=== PATIENT | female | born 1965 | race Two or more races ===

== ENCOUNTER 2020-10-10 10:01 | Outpatient (REF) | payer OTHER, SELFPAY | END 2020-10-10 10:02 | disposition home or self-care (01) | LOC: HO.LAB 10:01 | PROVIDERS: Visit Provider Internal Medicine | DX: Z20.822 Contact with and (suspected) exposure to COVID-19 (principal) | CPT/HCPCS: 36415; C9803; U0003; U0005 ==

== ENCOUNTER 2021-08-15 09:00 | Outpatient (REF) | payer OTHER, SELFPAY ==
[2021-08-15 09:20] LABS: COVID-19 Test Negative (Negative)
== END 2021-08-15 09:01 | disposition home or self-care (01) ==
LOC: HO.LAB 09:00
PROVIDERS: Visit Provider Internal Medicine
DX: Z20.822 Contact with and (suspected) exposure to COVID-19 (principal)
CPT/HCPCS: 36415; 87635; C9803

== ENCOUNTER 2021-08-29 09:03 | Outpatient (REF) | payer OTHER, SELFPAY ==
[2021-08-29 10:51] LABS: COVID-19 Test Negative (Negative)
== END 2021-08-29 09:04 | disposition home or self-care (01) ==
LOC: HO.LAB 09:03
PROVIDERS: Visit Provider Internal Medicine
DX: Z20.822 Contact with and (suspected) exposure to COVID-19 (principal)
CPT/HCPCS: 36415; 87635; C9803

== ENCOUNTER 2021-09-01 10:40 | Outpatient (REF) | payer OTHER, SELFPAY ==
[2021-09-01 11:30] LABS: COVID-19 Note SEE NOTES; COVID-19 Test Negative (Negative)
== END 2021-09-01 10:41 | disposition home or self-care (01) ==
LOC: HO.LAB 10:40
PROVIDERS: Visit Provider Internal Medicine
DX: Z20.822 Contact with and (suspected) exposure to COVID-19 (principal)
CPT/HCPCS: 36415; 87635; C9803

== ENCOUNTER 2021-09-13 08:11 | Outpatient (REF) | payer OTHER, SELFPAY ==
[2021-09-13 08:51] LABS: Binax Internal Control QC Valid; Binax Now Covid-19 Ag Negative (Negative)
== END 2021-09-13 08:12 | disposition home or self-care (01) ==
LOC: HO.LAB 08:11
PROVIDERS: Visit Provider Internal Medicine
DX: Z20.822 Contact with and (suspected) exposure to COVID-19 (principal)
CPT/HCPCS: C9803

== ENCOUNTER 2022-01-10 20:36 | Emergency (ER) | payer OTHER, SELFPAY ==
--- NOTE | 2022-01-10 | ECG_ITS ---
Test Reason : chest pain Blood Pressure : / mmHG Vent. Rate : 113 BPM Atrial Rate : 113 BPM P-R Int : 154 ms QRS Dur : 078 ms QT Int : 324 ms P-R-T Axes : 047 033 031 degrees QTc Int : 444 ms Sinus tachycardia Otherwise normal ECG When compared with ECG of 17-APR-2013 10:09, Vent. rate has increased BY 47 BPM Referred By: Generic ED Physician Electronically Signed By:DANG SAENZ MD
--- NOTE | ~2022-01-10 | XR_ITS ---
EXAMINATION: XR CHEST CLINICAL INFORMATION: Cough. COMPARISON: 07/27/2014 chest radiographs. TECHNIQUE: Frontal view of the chest was obtained. FINDINGS: There is minimal blunting of the left costophrenic angle with mild superjacent linear markings. The left upper lung field and right lung are clear. The heart and mediastinal structures are unremarkable. XR/XR chest 1V IMPRESSION: Small left pleural effusion with mild superjacent atelectasis versus infiltrate.
[2022-01-10 20:40] VITALS: BP 133/75; PULSE 114; RESP 18; TEMP 37.7; O2SAT 96; BMI 39.4
[2022-01-10 20:56] LABS: MANUAL DIFF FLAG NO
[2022-01-10 20:57] LABS: Basophils Percent Auto 0.2 % (0-2); Eosinophils Absolute Auto 0.1 X10*3/uL (0.0-0.4); Eosinophils Percent Auto 0.4 % (0-4); Hematocrit 37.7 % (37.0-47.0); Hemoglobin 12.3 g/dl (12.0-16.0); Imm Gran Abs Auto 0.03 X10*3/uL (0.00-0.03); Imm Gran Pct Auto 0.2 % (0.0-0.4); Lymphocytes Absolute Auto 1.3 X10*3/uL (1.2-4.9); Lymphocytes Percent Auto 10.2 % (20-40); Mean Corpuscular HGB Conc 32.6 g/dl (31.0-35.0); Mean Corpuscular Hemoglobin 29.4 pg (27.0-33.0); Mean Corpuscular Volume 90.2 fL (80.0-98.0); Mean Platelet Volume 11.3 fL (9.4-12.3); Monocytes Absolute Auto 0.4 X10*3/uL (0.1-1.2); Monocytes Percent Auto 2.9 % (2-11); Neutrophils Absolute Auto 10.9 x10*3/uL (2.0-8.3); Neutrophils Percent Auto 86.1 % (45-73); Platelet Count 183 X10*3/uL (160-400); Red Blood Count 4.18 X10*6/uL (4.20-5.50); Red Cell Distribution Width 14.4 % (11.0-16.0); White Blood Count 12.6 X10*3/uL (4.8-10.8)
[2022-01-10 21:10] LABS: Anion Gap 14 (12-20); Blood Urea Nitrogen 21 mg/dL (9-16); Carbon Dioxide 24 mmol/L (22-29); Chloride 106 mmol/L (96-108); Creatinine Clr Calc Pharmacy 68.4; Estimated Glomerular Filt Rate > 60; Glucose Random 118 mg/dL (60-115); Potassium 4.2 mmol/L (3.3-5.1); Sodium 140 mmol/L (135-145)
[2022-01-10 21:16] LABS: COVID-19 Test Negative (Negative); IDNOW Serial# 16C4AD1C; Influenza A Negative (Negative); Influenza B2 Negative (Negative)
--- NOTE | 2022-01-10 23:31 | ED_ITS ---
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 earlier noticed chills cough low- grade temperature body aches no other family member sick little bit nausea no abdominal pain no vomiting Related Data Previous Rx's Medication Instructions Recorded albuterol sulfate 90 mcg/actuation 2 puff INHALATION Q4-6H PRN #8.5 g 01/11/22 aerosol inhaler (ProAir HFA) codeine 10 mg-guaifenesin 100 mg/5 10 ml PO Q6H PRN #237 ml 01/11/22 mL oral liquid levofloxacin 750 mg tablet 750 mg PO DAILY 7 Days #7 tab 01/11/22 prednisone 20 mg tablet 40 mg PO DAILY #10 tab 01/11/22 Allergies Allergy/AdvReac Type Severity Reaction Status Date / Time acetaminophen Allergy Severe RASH, Verified 01/10/22 20:39 ITCHY EYES, ? ANAPHYLAXIS Review of Systems Review of Systems: Yes all other systems are reviewed and are negative [facility] Social History Social History Advance Directives: No Advance Directives Information Provided: Yes Physical Exam Vital Signs: Vital Signs: Last Vital Signs Temp 100.0 F 01/11/22 00:06 Pulse 101 H 01/11/22 00:06 Resp 18 01/11/22 00:06 BP 127/65 01/11/22 00:06 Pulse Ox 97 01/11/22 00:06 BMI result Body Mass Index 39.4 Appearance: Alert. Oriented X3. No acute distress. ENT: Pharynx normal. Oral Mucosa moist Neck: Normal inspection. Neck supple. CVS: Normal heart rate and rhythm. Pulses normal. Respiratory: No respiratory distress. Equal air entry bilateral, prolonged expiration Abdomen: Soft and nontender. Bowel sounds are present, no mass palpable, no CVA tenderness Skin: Skin warm and dry. Normal skin color. Normal skin turgor. Extremities: No lower extremity edema. No calf tenderness Neuro: Oriented X 3. MDM - URI/Sore Throat MDM Narrative Medical decision making narrative: Patient with acute bronchitis chest x-ray negative labs stable discharge patient home on Levaquin Lab Data Attestation: I reviewed the patient's lab results. Result diagrams: 01/10/22 20:49 01/10/22 20:49 Labs: Lab Results 01/10/22 01/10/22 01/10/22 Range/Units 20:49 20:49 20:49 WBC 12.6 H (4.8-10.8) X10*3/uL RBC 4.18 L (4.20-5.50) X10*6/uL Hgb 12.3 (12.0-16.0) g/dl Hct 37.7 (37.0-47.0) % MCV 90.2 (80.0-98.0) fL MCH 29.4 (27.0-33.0) pg MCHC 32.6 (31.0-35.0) g/dl RDW 14.4 (11.0-16.0) % Plt Count 183 (160-400) X10*3/uL MPV 11.3 (9.4-12.3) fL Immature Gran % (Auto) 0.2 (0.0-0.4) % Neut % (Auto) 86.1 H (45-73) % Lymph % (Auto) 10.2 L (20-40) % [place] % (Auto) 2.9 (2-11) % Eos % (Auto) 0.4 (0-4) % Baso % (Auto) 0.2 (0-2) % Lymph # (Auto) 1.3 (1.2-4.9) X10*3/uL [place] # (Auto) 0.4 (0.1-1.2) X10*3/uL Eos # (Auto) 0.1 (0.0-0.4) X10*3/uL Baso # (Auto) 0.0 (0.0-0.2) X10*3/uL Abs Immat Gran (auto) 0.03 (0.00-0.03) X10*3/uL Absolute Neuts (auto) 10.9 H (2.0-8.3) x10*3/uL Absolute Nucleated RBC 0.000 (0.0-0.012) X10*3/uL Nucleated RBC % (auto) 0.0 (0.0-0.2) /100WBC Sodium 140 (135-145) mmol/L Potassium 4.2 (3.3-5.1) mmol/L Chloride 106 (96-108) mmol/L Carbon Dioxide 24 (22-29) mmol/L Anion Gap 14 (12-20) BUN 21 H (9-16) mg/dL Creatinine 0.87 (0.5-1.4) mg/dL Estim Creat Clear Calc 68.4 Estimated GFR > 60 Random Glucose 118 H (60-115) mg/dL Calcium 9.0 (8.4-10.2) mg/dL COVID-19 (EFREN) (Negative) COVID-19 Clin Com Influenza Type A (ENE) Negative (Negative) Influenza Type B (ENE) Negative (Negative) Influenza A & B Note See Note 01/10/22 Range/Units 20:49 WBC (4.8-10.8) X10*3/uL RBC (4.20-5.50) X10*6/uL Hgb (12.0-16.0) g/dl Hct (37.0-47.0) % MCV (80.0-98.0) fL MCH (27.0-33.0) pg MCHC (31.0-35.0) g/dl RDW (11.0-16.0) % Plt Count (160-400) X10*3/uL MPV (9.4-12.3) fL Immature Gran % (Auto) (0.0-0.4) % Neut % (Auto) (45-73) % Lymph % (Auto) (20-40) % [place] % (Auto) (2-11) % Eos % (Auto) (0-4) % Baso % (Auto) (0-2) % Lymph # (Auto) (1.2-4.9) X10*3/uL [place] # (Auto) (0.1-1.2) X10*3/uL Eos # (Auto) (0.0-0.4) X10*3/uL Baso # (Auto) (0.0-0.2) X10*3/uL Abs Immat Gran (auto) (0.00-0.03) X10*3/uL Absolute Neuts (auto) (2.0-8.3) x10*3/uL Absolute Nucleated RBC (0.0-0.012) X10*3/uL Nucleated RBC % (auto) (0.0-0.2) /100WBC Sodium (135-145) mmol/L Potassium (3.3-5.1) mmol/L Chloride (96-108) mmol/L Carbon Dioxide (22-29) mmol/L Anion Gap (12-20) BUN (9-16) mg/dL Creatinine (0.5-1.4) mg/dL Estim Creat Clear Calc Estimated GFR Random Glucose (60-115) mg/dL Calcium (8.4-10.2) mg/dL COVID-19 (EFREN) Negative (Negative) COVID-19 Clin Com See Note Influenza Type A (ENE) (Negative) Influenza Type B (ENE) (Negative) Influenza A & B Note Discharge Plan Discharge Clinical Impression: Bronchitis Patient Disposition: Home, Self-Care Instructions: Acute Bronchitis (ED) Additional Instructions: Take antibiotic as prescribed Tylenol/Motrin for fever Cough syrup as advised Follow with PCP if not better for recheck COVID/flu Use albuterol for wheezing Prescriptions: New levofloxacin 750 mg tablet 750 mg PO DAILY 7 Days Qty: 7 0RF codeine-guaifenesin 10-100 mg/5 mL liquid 10 ml PO Q6H PRN (Reason: cough) Qty: 237 0RF albuterol sulfate [ProAir HFA] 90 mcg/actuation HFA aerosol inhaler 2 puff inhalation Q4-6H PRN (Reason: shortness of breath or wheezing) Qty: 8.5 0RF prednisone 20 mg tablet 40 mg PO DAILY Qty: 10 0RF Stand Alone Forms: Work/School Release Interventions: ED Discharge Assessment Last Done: 01/11/22 00:37 Discharge Date/Time: 01/11/22 00:39
[2022-01-11 00:06] VITALS: BP 127/65; PULSE 101; RESP 18; TEMP 37.8; O2SAT 97
[2022-01-11] MEDS: predniSONE 20 MG TABLET 40 MG PO (00:10)
[2022-01-11] MEDS: guaiFEN/Codeine SF 200/20/10ML 10 ML LIQUID PO (00:10)
[2022-01-11] MEDS: levoFLOXacin 750 MG TABLET PO (00:10)
[2022-01-11] MEDS: Albuterol Sulfate 90 MCG 8 GM INHALER 2 PUFF INHALE (00:10)
== END 2022-01-11 00:39 | disposition home or self-care (01) ==
PROVIDERS: Emergency Provider Internal Medicine
DX: J40 Bronchitis, not specified as acute or chronic (principal); R07.89 Other chest pain; R05.9 Cough, unspecified; M79.10 Myalgia, unspecified site; R50.9 Fever, unspecified; Z20.822 Contact with and (suspected) exposure to COVID-19; Z79.899 Other long term (current) drug therapy
CPT/HCPCS: 71045; 80048; 85025; 87502; 87635; 93005; 99283; 99284

== ENCOUNTER 2022-11-13 13:00 | Emergency (ER) | payer OTHER, SELFPAY ==
--- NOTE | ~2022-11-13 | US_ITS ---
EXAMINATION: US VENOUS ULTRASOUND WITH DOPPLER LOWER EXTREMITY, BILATERAL CLINICAL INFORMATION: Lower extremity pain, history of clots. COMPARISON: Right lower extremity venous DVT study dated 01/15/2017. TECHNIQUE: Ultrasound of the deep veins is performed from the hip to the calf with compression sonography and color and pulse Doppler assessment. Spectral analysis with color-flow imaging is performed. FINDINGS: RIGHT: There is normal venous compression and respiratory variation and augmented flow. The visualized common femoral vein, superficial femoral vein, profunda femoral vein, popliteal vein, and the trifurcation region shows no evidence of deep venous thrombosis. There is no significant popliteal fossa cyst. LEFT: There is normal venous compression and respiratory variation and augmented flow. The visualized common femoral vein, superficial femoral vein, profunda femoral vein, popliteal vein, and the trifurcation region shows no evidence of deep venous thrombosis. There is no significant popliteal fossa cyst. If the patient's symptoms persist, followup ultrasound in 5 days 7 days might be of value to exclude proximal propagation from a non-visualized calf vein. US/US venous duplex LE BI IMPRESSION: No evidence for deep venous thrombosis in the visualized veins of the bilateral lower extremities.
--- NOTE | ~2022-11-13 | XR_ITS ---
EXAMINATION: XR HIP, RIGHT CLINICAL INFORMATION: Right hip pain. COMPARISON: None TECHNIQUE: Two views of the right hip. FINDINGS: Minimal right hip degenerative joint changes are seen. There is no acute fracture or dislocation. The right hemipelvis is intact. The soft tissues are unremarkable. XR/XR hip RT min 2V IMPRESSION: Minimal right hip osteoarthritis. No acute fracture.
--- NOTE | ~2022-11-13 | US_ITS ---
EXAMINATION: US VENOUS WITH DOPPLER UPPER EXTREMITY, RIGHT CLINICAL INFORMATION: Right hand swelling, history of clots. COMPARISON: None TECHNIQUE: Ultrasound of the upper extremity is performed using compression sonography and color and pulse Doppler flow with assessment of augmentation of flow. There is also imaging and Doppler assessment of the jugular and subclavian veins. Spectral analysis with color-flow imaging is performed. FINDINGS: Respiratory variation, normal compression, and augmented flow are noted throughout the upper extremity including the axillary, brachial, cubital, and radial and ulnar veins. There is normal flow in the internal jugular and subclavian veins. There is no visible deep or superficial thrombophlebitis. If the patient's symptoms progress, a followup ultrasound in 5 -7 days might be of value to exclude proximal propagation from a nonvisualized distal arm vein. US/US venous duplex UE RT IMPRESSION: No evidence for deep venous thrombosis in the visualized veins of the right upper extremity.
[2022-11-13 13:43] VITALS: BP 137/81; PULSE 70; RESP 16; TEMP 36.7; O2SAT 97; BMI 38.1
[2022-11-13 14:59] LABS: MANUAL DIFF FLAG NO
[2022-11-13 15:00] LABS: Basophils Absolute Auto 0.1 X10*3/uL (0.0-0.2); Basophils Percent Auto 0.9 % (0-2); Eosinophils Absolute Auto 0.1 X10*3/uL (0.0-0.4); Eosinophils Percent Auto 2.2 % (0-4); Hematocrit 37.5 % (37.0-47.0); Imm Gran Abs Auto 0.01 X10*3/uL (0.00-0.03); Imm Gran Pct Auto 0.2 % (0.0-0.4); Lymphocytes Absolute Auto 1.9 X10*3/uL (1.2-4.9); Lymphocytes Percent Auto 34.6 % (20-40); Mean Corpuscular Hemoglobin 29.3 pg (27.0-33.0); Mean Corpuscular Volume 91.7 fL (80.0-98.0); Mean Platelet Volume 11.8 fL (9.4-12.3); Monocytes Absolute Auto 0.5 X10*3/uL (0.1-1.2); Monocytes Percent Auto 9.7 % (2-11); Neutrophils Absolute Auto 2.9 x10*3/uL (2.0-8.3); Neutrophils Percent Auto 52.4 % (45-73); Platelet Count 194 X10*3/uL (160-400); Red Blood Count 4.09 X10*6/uL (4.20-5.50); Red Cell Distribution Width 13.9 % (11.0-16.0); White Blood Count 5.6 X10*3/uL (4.8-10.8)
[2022-11-13 15:06] LABS: Prothrombin Time 11.3 SEC (10.0-13.1)
[2022-11-13 15:18] LABS: Alanine Aminotransferase 15 U/L (0-31); Albumin Level 3.8 g/dL (3.5-5.0); Alkaline Phosphatase 98 U/L (39-117); Anion Gap 13 (12-20); Aspartate Amino Transferase 14 U/L (5-31); Bilirubin Total 0.5 mg/dL (0.0-1.0); Blood Urea Nitrogen 20 mg/dL (9-16); Calcium 8.7 mg/dL (8.4-10.2); Carbon Dioxide 27 mmol/L (22-29); Chloride 108 mmol/L (96-108); Creatinine Clr Calc Pharmacy 78.8; Estimated Glomerular Filt Rate > 60; Glucose Random 91 mg/dL (60-115); Potassium 4.5 mmol/L (3.3-5.1); Sodium 143 mmol/L (135-145); Total Protein 6.7 g/dL (6.5-8.0)
[2022-11-13 15:41] LABS: Influenza A PCR NEGATIVE (Negative); Influenza B PCR NEGATIVE (Negative); Resp Syncy Virus RNA Qual PCR NEGATIVE (Negative); SARS COV2 PCR INHOUSE NEGATIVE (Negative)
--- NOTE | 2022-11-13 16:36 | ED.GENADULT ---
HPI - General Adult General Chief complaint: General Medical Stated complaint: R hand swollen, R hip pain Time Seen by Provider: 11/13/22 16:34 Source: patient Mode of arrival: ambulatory Limitations: no limitations History of Present Illness HPI narrative: This is a 57-year-old female history of PE not anticoagulated, presenting to the emergency department for evaluation of bilateral hand swelling and cramping every morning for the past few months in pain to the right flank area radiating into her right buttocks. Patient tells me that she is noticed that her hands become crampy, tingly and swollen at times in the morning with decreased sensation. She tells me she is not sure what this could be and she has never had this evaluated before. She is also reporting severe right lower flank pain that radiates into her right buttocks, patient tells me that she has been walking a lot and she is not sure if this could be contributing to pain. She also reports a crampy sensation in bilateral thighs which has been going on for a few days worsening however he tells me she thinks this was brought on by exercising however she is worried because she has a history of PE. She tells me she had a PE years ago after surgical procedure. Denies fevers, chills, numbness, chest pain, shortness of breath, headache, vision changes, dizziness, weakness, urinary/bowel incontinence/retention, saddle paresthesias, changes in gait, urinary symptoms. Related Data Previous Rx's Medication Instructions Recorded albuterol sulfate 90 mcg/actuation 2 puff inhalation Q4-6H PRN 01/11/22 aerosol inhaler (ProAir HFA) shortness of breath or wheezing #8.5 grams codeine 10 mg-guaifenesin 100 mg/5 10 ml PO Q6H PRN cough #237 mL 01/11/22 mL oral liquid levofloxacin 750 mg tablet 750 mg PO DAILY 7 days #7 tabs 01/11/22 prednisone 20 mg tablet 40 mg PO DAILY #10 tabs 01/11/22 ketorolac 10 mg tablet 10 mg PO TID PRN pain 5 days #15 11/13/22 tabs lidocaine 5 % topical patch 1 patch topical DAILY PRN pain #15 11/13/22 ea Allergies Allergy/AdvReac Type Severity Reaction Status Date / Time acetaminophen Allergy Severe RASH, Verified 01/10/22 20:39 ITCHY EYES, ? ANAPHYLAXIS Review of Systems Review of Systems: Constitutional : No Weight loss, No Fever, No Chills, No Fatigue, No Malaise ENT/Mouth : No sore throat, No Rhinorrhea Eyes: No Eye Pain, No Swelling, No Redness Cardiovascular : No Chest Pain, No SOB, No Dyspnea on Exertion, No Orthopnea, No Edema, No Palpitations Respiratory : No Cough, No Sputum, No Wheezing Gastrointestinal : No Nausea, No Vomiting, No Diarrhea, No Constipation, No abdominal Pain, No Hematochezia, No Melena Genitourinary : No Dysuria, No Urinary Frequency, No Hematuria, Musculoskeletal : No joint pain, No Myalgias, No Joint Swelling, + right-sided flank pain Skin : No Skin Lesions, No rash Neuro : No Weakness, No Numbness, No Dizziness, No Headache Psych : No Anxiety/Panic, No Depression All other systems reviewed and are negative Yes all other systems are reviewed and are negative [facility] Past Medical History Attestation statement: The following information was validated with the patient. Source: old records reviewed and nursing notes reviewed Social History Social History Advance Directives: No Advance Directives Information Provided: Yes Physical Exam ED Vital Signs: Vital Signs - 24 hr 11/13/22 13:43 Temperature 98.0 F Pulse Rate 70 Respiratory Rate 16 Blood Pressure 137/81 Pulse Oximetry 97 Oxygen Delivery Method Room Air BMI result Body Mass Index 38.1 Vital signs stable Appearance: Alert.? Oriented X3.? No acute distress.? Head: Normocephalic, atraumatic, no step-offs or deformities Eyes: Pupils equal, round and reactive to light.? CVS: Normal heart rate and rhythm.? Pulses normal.? Respiratory: No respiratory distress.? Breath sounds normal.? Abdomen: Soft and nontender.? Skin: Skin warm and dry.? Normal skin color.? Normal skin turgor.? Extremities: No lower extremity edema or edema to bilateral upper extremities.? No calf ttp, negative Jadiel bilaterally. 5/5 strength to bilateral upper and lower extremities 2+ radial pulses equal bilateral. Normal capillary refill. Normal sensation to bilateral upper and lower extremities. No overlying skin changes. Back: No midline tenderness, no C-spine tenderness, full range of motion, no CVA tenderness bilaterally + discomfort with palpation of right-sided flank/right lumbar paraspinous muscles throughout. No midline tendernmess Neuro: Oriented X 3.? No motor deficit.? No sensory deficit. CN 2-12 intact . Ambulatory w/ steady gait, no saddle paresthesias Course Reevaluation(s) Reevaluation #1: CBC appears to be around normal limits. Chemistry with no acute findings requiring intervention. Influenza, COVID, RSV negative. No evidence of DVT in the veins of the right upper extremity. No need for DVT study in the left upper extremity. There is no swelling to either extremity on my exam. Palpable pulses no need for arterial study. I do not suspect arterial occlusion. Right hip with osteoarthritis. No acute fracture. DVT of bilateral lower extremities pending. I suspect patient likely has lumbago right paraspinous lumbar spasm. Time: 17:32 Reevaluation #2: Patient feeling better. This time patient will be discharged home. Will discharge with Toradol and Lidoderm patches. Will have her follow up with PCP for chronic conditions. Educated patient on diagnosis and treatment plan, answered all question, patient verbalizes understanding. At this time patient will be discharged home, advised to return with new or worsening symptoms. Educated on worrisome signs and symptoms and when to return. At this time I feel comfortable discharge home. Time: 17:52 Medical Decision Making Medical Decision Making [facility] Narrative: 162 57-year-old female presents for evaluation of bilateral hand cramping, tingling and swelling in the mornings for few days, thigh cramping, right flank pain. Physical exam discomfort with palpation of right-sided flank/right lumbar paraspinous muscles throughout. No midline tender. RRR. Breath sounds clean. Abdomen soft nontender non distended. No saddle paresthesias. Ambulating w/ steady gait. No lower extremity edema or edema to bilateral upper extremities.? No calf ttp, negative Jadiel bilaterally. 5/5 strength to bilateral upper and lower extremities 2+ radial pulses equal bilateral. Normal capillary refill. Normal sensation to bilateral upper and lower extremities. No overlying skin changes. Hand tingling likely neuropathy. No signs of venous or arterial occlusion to upper lower extremities. Back pain likely lumbar spasm or sciatica. I do not suspect epidural abscess, cauda equina. Unlikely pyelonephritis, kidney stone. No signs of cellulitis. Plan at this time labs, imaging, DVT study. Differential Diagnosis Differential Diagnoses: The differential diagnosis associated with the presentation includes Hand tingling likely neuropathy. No signs of venous or arterial occlusion to upper lower extremities. Back pain likely lumbar spasm or sciatica. I do not suspect epidural abscess, cauda equina. Unlikely pyelonephritis, kidney stone. No signs of cellulitis. Admission/Observation Consideration of admission/observation: Escalation of care including admission/observation considered Lab Data MDM Lab Attestation statement: I reviewed the patient's lab results. 11/13/22 14:54 11/13/22 14:54 Labs: Lab Results 11/13/22 11/13/22 11/13/22 Range/Units 14:54 14:54 14:54 WBC 5.6 (4.8-10.8) X10*3/uL RBC 4.09 L (4.20-5.50) X10*6/uL Hgb 12.0 (12.0-16.0) g/dl Hct 37.5 (37.0-47.0) % MCV 91.7 (80.0-98.0) fL MCH 29.3 (27.0-33.0) pg MCHC 32.0 (31.0-35.0) g/dl RDW 13.9 (11.0-16.0) % Plt Count 194 (160-400) X10*3/uL MPV 11.8 (9.4-12.3) fL Immature Gran % (Auto) 0.2 (0.0-0.4) % Neut % (Auto) 52.4 (45-73) % Lymph % (Auto) 34.6 (20-40) % [place] % (Auto) 9.7 (2-11) % Eos % (Auto) 2.2 (0-4) % Baso % (Auto) 0.9 (0-2) % Lymph # (Auto) 1.9 (1.2-4.9) X10*3/uL [place] # (Auto) 0.5 (0.1-1.2) X10*3/uL Eos # (Auto) 0.1 (0.0-0.4) X10*3/uL Baso # (Auto) 0.1 (0.0-0.2) X10*3/uL Abs Immat Gran (auto) 0.01 (0.00-0.03) X10*3/uL Absolute Neuts (auto) 2.9 (2.0-8.3) x10*3/uL Absolute Nucleated RBC 0.000 (0.0-0.012) X10*3/uL Nucleated RBC % (auto) 0.0 (0.0-0.2) /100WBC PT (10.0-13.1) SEC INR (0.9-1.1) Sodium 143 (135-145) mmol/L Potassium 4.5 (3.3-5.1) mmol/L Chloride 108 (96-108) mmol/L Carbon Dioxide 27 (22-29) mmol/L Anion Gap 13 (12-20) BUN 20 H (9-16) mg/dL Creatinine 0.73 (0.5-1.4) mg/dL Estim Creat Clear Calc 78.8 Estimated GFR > 60 Random Glucose 91 (60-115) mg/dL Calcium 8.7 (8.4-10.2) mg/dL Total Bilirubin 0.5 (0.0-1.0) mg/dL AST 14 (5-31) U/L ALT 15 (0-31) U/L Alkaline Phosphatase 98 (39-117) U/L Total Protein 6.7 (6.5-8.0) g/dL Albumin 3.8 (3.5-5.0) g/dL Influenza Type A (PCR) NEGATIVE (Negative) Influenza Type B (PCR) NEGATIVE (Negative) RSV RNA Qual (PCR) NEGATIVE (Negative) SARS-CoV-2 RNA (RT-PCR) NEGATIVE (Negative) 11/13/22 Range/Units 14:54 WBC (4.8-10.8) X10*3/uL RBC (4.20-5.50) X10*6/uL Hgb (12.0-16.0) g/dl Hct (37.0-47.0) % MCV (80.0-98.0) fL MCH (27.0-33.0) pg MCHC (31.0-35.0) g/dl RDW (11.0-16.0) % Plt Count (160-400) X10*3/uL MPV (9.4-12.3) fL Immature Gran % (Auto) (0.0-0.4) % Neut % (Auto) (45-73) % Lymph % (Auto) (20-40) % [place] % (Auto) (2-11) % Eos % (Auto) (0-4) % Baso % (Auto) (0-2) % Lymph # (Auto) (1.2-4.9) X10*3/uL [place] # (Auto) (0.1-1.2) X10*3/uL Eos # (Auto) (0.0-0.4) X10*3/uL Baso # (Auto) (0.0-0.2) X10*3/uL Abs Immat Gran (auto) (0.00-0.03) X10*3/uL Absolute Neuts (auto) (2.0-8.3) x10*3/uL Absolute Nucleated RBC (0.0-0.012) X10*3/uL Nucleated RBC % (auto) (0.0-0.2) /100WBC PT 11.3 (10.0-13.1) SEC INR 1.0 (0.9-1.1) Sodium (135-145) mmol/L Potassium (3.3-5.1) mmol/L Chloride (96-108) mmol/L Carbon Dioxide (22-29) mmol/L Anion Gap (12-20) BUN (9-16) mg/dL Creatinine (0.5-1.4) mg/dL Estim Creat Clear Calc Estimated GFR Random Glucose (60-115) mg/dL Calcium (8.4-10.2) mg/dL Total Bilirubin (0.0-1.0) mg/dL AST (5-31) U/L ALT (0-31) U/L Alkaline Phosphatase (39-117) U/L Total Protein (6.5-8.0) g/dL Albumin (3.5-5.0) g/dL Influenza Type A (PCR) (Negative) Influenza Type B (PCR) (Negative) RSV RNA Qual (PCR) (Negative) SARS-CoV-2 RNA (RT-PCR) (Negative) Independent Interpretation I performed an independent interpretation of an: Ultrasound Radiology Impression Discussion of test interpretation with radiology: I have reviewed the radiologist's reading. Core Measures AMI core measures followed: Yes Measure exclusions: not indicated Discharge Plan Discharge Clinical Impression: Lumbar paraspinal muscle spasm, Bilateral thigh pain, Tingling of both upper extremities, Osteoarthritis of right hip Patient Disposition: Home, Self-Care Instructions: Osteoarthritis (ED), Leg Cramps (ED), Paresthesia (ED), Back Pain (ED) Additional Instructions: Take your medications as prescribed. If you were prescribed antibiotics today, it is important that you take your medication to their entirety, do not skip any doses, do not finish them early. Follow-up with your primary care provider this week. Return to the emergency department with new or worsening symptoms. Such as fevers, chills, chest pain, shortness of breath, nausea, vomiting, dizziness, headache, vision changes, lethargy In case of emergency call 911 Toradol has been sent to your pharmacy, you tolerated this well in the department. Please take this as prescribed do not take this with ibuprofen, or other NSAIDs, do not mix this with alcohol. Side effects of this medication including increased risk for bleeding and possible kidney injury. US/US venous duplex LE BI IMPRESSION: No evidence for deep venous thrombosis in the visualized veins of the bilateral lower extremities. ?US/US venous duplex UE RT IMPRESSION: No evidence for deep venous thrombosis in the visualized veins of the right upper extremity. XR/XR hip RT min 2V IMPRESSION: Minimal right hip osteoarthritis. No acute fracture. ? Prescriptions: New ketorolac 10 mg tablet 10 mg PO TID PRN (Reason: pain) 5 Days Qty: 15 0RF lidocaine 5 % adhesive patch,medicated 1 patch topical DAILY PRN (Reason: pain) Qty: 15 0RF Rx Instructions: leave on most painful area for up to 12 hrs No Action levofloxacin 750 mg tablet 750 mg PO DAILY 7 Days Qty: 7 0RF codeine-guaifenesin 10-100 mg/5 mL liquid 10 ml PO Q6H PRN (Reason: cough) Qty: 237 0RF albuterol sulfate [ProAir HFA] 90 mcg/actuation HFA aerosol inhaler 2 puff inhalation Q4-6H PRN (Reason: shortness of breath or wheezing) Qty: 8.5 0RF prednisone 20 mg tablet 40 mg PO DAILY Qty: 10 0RF Referrals: Anjel Crandall III, MD [Primary Care Provider] - 2 days Stand Alone Forms: Work/School Release
--- OUTSIDE RECORDS SUMMARY | 2022-11-13 16:57 | XMS_ITS | Continuity of Care Document ---
:1965 Author Organization [facility] Address [address] [place] [id number]- Care Team Providers Name Role Phone Aniya Li DO Primary Care Physician Encounter [facility] Date(s): 03/14/20 - 03/15/[address] [address]- [facility] Discharge Disposition: A-Transfer VNA/Home Health Attending Physician: Adebayo Mays MD Admitting Physician: Adebayo Mays MD Referring Physician: Not on Staff, Referring MD Allergies, Adverse Reactions, Alerts Substance Reaction Severity Status Tylenol Active Medications Advil 200 mg, By Mouth, Maintenance, 04/29/13 7:38:28 Start Date: 04/29/13 Status: OrderedCoumadin Tablet = 4 mg, By Mouth, Daily, 0 Refills, Maintenance, 03/14/20 0:38:00 EDT, Tablet Start Date: 03/14/20 Status: OrderedoxyCODONE 5 mg oral tablet 2.5 mg, 0.5, tablet, By Mouth, Every 4 hours, PRN, # 5 tablet, Refills 0, Tot. Refills 0, Maintenance, Pain , Severe, 03/15/20 11:17:00 EDT, Print Requisition, Partial fill upon patient request Start Date: 03/15/20 Status: OrderedPantoprazole Daily, 0 Refills, Maintenance, 03/14/20 0:38:00 EDT Start Date: 03/14/20 Status: OrderedSucralfate = 1 Gm, By Mouth, 3 times a day before meals and bedtime, 0 Refills, Maintenance, 03/14/20 0:38:00 EDT Start Date: 03/14/20 Status: Ordered Problem List Condition Effective Dates Status Health Status Informant Peripheral venous Active insufficiency(Confirmed) VV (varicose veins)(Confirmed) Active Results Orders for Microbiology Reports Name Date Blood Culture #2 03/14/20 Wound Superficial Culture W/ Gram Smear 03/14/20 Blood Culture (BLOOD CULTURE) 03/14/20 Microbiology Reports TEST:Blood Culture, Second Order STATUS:Unauthenticated BODY SITE: SOURCE:Blood COLLECTED DATE/TIME:03/14/20 2:32 AMBlood Culture, Second Order SPECIMEN DESCRIPTION : BLOOD NO SITE SPECIAL REQUESTS : NONE CULTURE : NO GROWTH AFTER 24 HOURS REPORT STATUS : PRELIMINARY REPORT TEST:Superficial Wound Culture STATUS:Unauthenticated BODY SITE: SOURCE:SWAB1 COLLECTED DATE/TIME:03/14/20 2:30 AMSuperficial Wound Culture SPECIMEN DESCRIPTION : SWAB ABDOMEN SPECIAL REQUESTS : NONE GRAM STAIN : 4+ POLYMORPHONUCLEAR LEUKOCYTES 4+ GRAM POSITIVE COCCI 3+ GRAM NEGATIVE RODS 2+ GRAM POSITIVE RODS CULTURE : 3+ GROUP B BETA HEMOLYTIC STREPTOCOCCI ISOLATED. SUSCEPTIBILITY TESTING NOT ROUTINELY PERFORMED ON THIS ISOLATE. REPORT STATUS : PRELIMINARY REPORT TEST:Blood Culture STATUS:Unauthenticated BODY SITE: SOURCE:Blood COLLECTED DATE/TIME:03/14/20 12:50 AMBlood Culture SPECIMEN DESCRIPTION : BLOOD NO SITE SPECIAL REQUESTS : NONE CULTURE : NO GROWTH AFTER 24 HOURS REPORT STATUS : PRELIMINARY REPORT Vital Signs Most recent to oldest 1 2 3 [Reference Range]: Height 150 cm 150 cm 150 cm (03/14/20 3:54 PM) (03/14/20 12:59 PM) (03/14/20 8: 52 AM) Weight 95.6 kg 90.9 kg 90.9 kg (03/14/20 8:52 AM) (03/14/20 6:46 AM) (03/14/20 4:0 2 AM) Oxygen Saturation [94-100 %] 100 % 98 % 96 % (03/15/20 11:00 AM) (03/15/20 7:00 AM) (03/15/20 4: 00 AM) Pulse Rate [55-90 bpm] 79 bpm 80 bpm 68 bpm (03/15/20 11:00 AM) (03/15/20 7:00 AM) (03/15/20 4: 00 AM) Body Mass Index [18.5-24.99] 42.49 *>HHI* (03/14/20 8:52 AM) Blood Pressure [90-138/55-84 93/61 mm Hg 102/55 mm Hg 108 /58 mm Hg mm Hg] (03/15/20 11:00 AM) (03/15/20 7:00 AM) (03/15/20 4: 00 AM) Respiratory Rate [16-30 18 br/min 18 br/min 18 br/mi n br/min] (03/15/20 12:50 PM) (03/15/20 11:55 AM) (03/15/20 1 1:00 AM) Temperature [96.8-100.4 97.9 DegF 98.8 DegF 97.9 Deg F DegF] (03/15/20 11:00 AM) (03/15/20 7:00 AM) (03/15/20 4: 00 AM) Mode of Delivery (Oxygen) Room air Room air Room a ir (03/15/20 11:00 AM) (03/15/20 7:00 AM) (03/15/20 4: 00 AM) Blood pressure sites Arm, right Arm, right Arm, right (03/15/20 11:00 AM) (03/15/20 7:00 AM) (03/15/20 4: 00 AM) Temperature Route Oral Oral Oral (03/15/20 11:00 AM) (03/15/20 7:00 AM) (03/15/20 4: 00 AM) Dry Weight 95.6 kg 90.9 kg 90.9 kg (03/14/20 8:52 AM) (03/14/20 6:46 AM) (03/14/20 4:0 2 AM) Weight Obtained Via Standing scale (03/14/20 12:34 AM) Dry Weight Obtained Via Standing scale (03/14/20 12:34 AM)
--- OUTSIDE RECORDS SUMMARY | 2022-11-13 16:57 | XMS_ITS | Continuity of Care Document ---
:1965 Author Organization [facility] Address [address] [place] [address]- Care Team Providers Name Role Phone Aniya Li DO Primary Care Physician Encounter 03/17/20 - 04/28/20 [facility] [address] [place] [address]- [facility] Discharge Disposition: GOALS MET Allergies, Adverse Reactions, Alerts Substance Reaction Severity [...]
--- OUTSIDE RECORDS SUMMARY | 2022-11-13 16:57 | XMS_ITS | Continuity of Care Document ---
:1965 Author Organization [facility] Address [address] [place] [address]- Care Team Providers Name Role Phone Aniya Li DO Primary Care Physician [id number] Date(s): 03/14/20 - 04/13/[address] [address]- [facility] Attending Physician: Not on Staff, Attending MD Admitting Physician: Not on Staff, Admitting MD Referring Physician: Not on Staff, Referring [...]
[2022-11-13] MEDS: Ketorolac Tromethamine 15 MG/ML VIAL 30 MG IM (18:18)
[2022-11-13] MEDS: Lidocaine 4 % Patch ADH..PATCH 1 PATCH TRANSDERMA (18:19)
== END 2022-11-13 18:33 | disposition home or self-care (01) ==
PROVIDERS: Physician Assistant; Emergency Provider Internal Medicine; PCP Internal Medicine
DX: M62.830 Muscle spasm of back (principal); M16.11 Unilateral primary osteoarthritis, right hip; M79.652 Pain in left thigh; M79.651 Pain in right thigh; R20.2 Paresthesia of skin; Z20.822 Contact with and (suspected) exposure to COVID-19; Z20.828 Contact with and (suspected) exposure to other viral communicable diseases; Z86.711 Personal history of pulmonary embolism; Z79.899 Other long term (current) drug therapy
CPT/HCPCS: 0241U; 36415; 73502; 80053; 82550; 85025; 85610; 93970; 93971; 96372; 99283; 99284; J1885

== ENCOUNTER 2024-03-10 08:44 | Emergency (ER) | payer OTHER, SELFPAY ==
--- NOTE | ~2024-03-10 | CT_ITS ---
EXAMINATION: CT ABDOMEN AND PELVIS WITHOUT CONTRAST CLINICAL INFORMATION: Left lower quadrant abdominal pain COMPARISON: CT from 08/10/2014 TECHNIQUE: Multidetector volumetric imaging was performed from the superior aspect of the liver through the pubic symphysis. Sagittal and coronal reformatted images were obtained on the technologist's workstation. This CT examination was performed using dose optimization techniques as appropriate, variously including the following: *Automated exposure control *Adjustment of mA and/or kV according to patient size (this includes techniques or standardized protocols for targeted exams where dose is matched to indication/reason for exam; i.e. extremities or head) *Use of iterative reconstruction technique DLP: 509 mGy-cm FINDINGS: LUNG BASES: The visualized lung bases are unremarkable. LIVER, GALLBLADDER, AND BILIARY TREE: The liver is normal in size, shape, and attenuation. No focal hepatic lesion or biliary ductal dilatation is present. The gallbladder is unremarkable with no evidence of radiopaque gallstones, gallbladder wall thickening, or obvious pericholecystic inflammatory changes. PANCREAS: Unremarkable. SPLEEN: Unremarkable. ADRENAL GLANDS: Unremarkable. KIDNEYS AND URETERS: The kidneys are normal in size, shape, and attenuation. No hydronephrosis, hydroureter, or calculi seen. No perinephric stranding. BLADDER: Unremarkable. GASTROINTESTINAL TRACT: The small bowel are unremarkable. The appendix is unremarkable. Multiple diverticula seen within the sigmoid colon with associated bowel wall thickening and pericolonic inflammatory stranding consistent with acute diverticulitis. No evidence of abscess formation or free air ABDOMINAL WALL: Postsurgical changes along the anterior abdominal wall consistent with a prior surgery and ventral hernia repair LYMPH NODES: Normal. VASCULAR: Unremarkable. PELVIC VISCERA: Status post hysterectomy. No adnexal mass lesions OSSEOUS STRUCTURES: Unremarkable. CT/CT abdomen pelvis wo IV con IMPRESSION: Acute diverticulitis of the sigmoid colon. No evidence of abscess formation or free air.
[2024-03-10 09:13] VITALS: BP 122/71; PULSE 74; RESP 16; TEMP 36.7; O2SAT 98; BMI 40.1
[2024-03-10 09:27] LABS: MANUAL DIFF FLAG NO
[2024-03-10 09:28] LABS: Basophils Percent Auto 0.6 % (0-2); Eosinophils Absolute Auto 0.2 X10*3/uL (0.0-0.4); Eosinophils Percent Auto 2.4 % (0-4); Hemoglobin 12.2 g/dl (12.0-16.0); Imm Gran Abs Auto 0.02 X10*3/uL (0.00-0.03); Imm Gran Pct Auto 0.3 % (0.0-0.4); Lymphocytes Percent Auto 13.6 % (20-40); Mean Corpuscular Volume 91.1 fL (80.0-98.0); Mean Platelet Volume 11.5 fL (9.4-12.3); Monocytes Absolute Auto 0.6 X10*3/uL (0.1-1.2); Monocytes Percent Auto 8.2 % (2-11); Neutrophils Absolute Auto 5.4 x10*3/uL (2.0-8.3); Neutrophils Percent Auto 74.9 % (45-73); Platelet Count 176 X10*3/uL (160-400); Red Blood Count 4.06 X10*6/uL (4.20-5.50); Red Cell Distribution Width 14.5 % (11.0-16.0); White Blood Count 7.2 X10*3/uL (4.8-10.8)
[2024-03-10 10:02] LABS: Alanine Aminotransferase 16 U/L (0-31); Alkaline Phosphatase 91 U/L (39-117); Anion Gap 13 (12-20); Aspartate Amino Transferase 21 U/L (5-31); Bilirubin Direct 0.2 mg/dL (0.0-0.5); Bilirubin Total 0.7 mg/dL (0.0-1.0); Blood Urea Nitrogen 16 mg/dL (9-16); Calcium 9.3 mg/dL (8.4-10.2); Carbon Dioxide 24 mmol/L (22-29); Chloride 112 mmol/L (96-108); Creatinine Clr Calc Pharmacy 68.7; Estimated Glomerular Filt Rate > 60; Glucose Random 99 mg/dL (60-115); Lipase 17 U/L (8-78); Potassium 4.3 mmol/L (3.3-5.1); Sodium 145 mmol/L (135-145); Total Protein 7.3 g/dL (6.5-8.0)
[2024-03-10 11:43] VITALS: BP 148/72; PULSE 67; RESP 16; TEMP 36.2; O2SAT 100
[2024-03-10 12:01] LABS: Appearance Urine Clear; Color Urine Yellow; Glucose Urine UA Negative (Negative); Leukocyte Esterase Urine Small (1+) (Negative); Nitrite Urine Negative (Negative); PH 5.5 (5.0-9.0); UMIC TRIGGER UACC YES; Urine Blood Moderate (2+) (Negative); Urine Ketones 15 mg/dL (Negative); Urine Protein 30 (1+) mg/dL (Neg-Trace)
--- NOTE | 2024-03-10 12:12 | ED_ITS ---
HPI - Abdominal Pain General Chief Complaint: Abdominal Pain Stated Complaint: lower abd pain Time Seen by Provider: 03/10/24 12:00 Source: patient Mode of arrival: ambulatory Limitations: no limitations History of Present Illness ED Provider: Dr. Del Cid HPI narrative: Prior history of diverticulitis with resection, now with lower abdominal pain, no fever or vomiting. In addition, patient right sided low back pain with radiation down right leg. Related Data Previous Rx's ?Medication ?Instructions ?Recorded albuterol sulfate 90 mcg/actuation 2 puff inhalation Q4-6H PRN 01/11/22 aerosol inhaler (ProAir HFA) shortness of breath or wheezing #8.5 grams codeine 10 mg-guaifenesin 100 mg/5 10 ml PO Q6H PRN cough #237 mL 01/11/22 mL oral liquid levofloxacin 750 mg tablet 750 mg PO DAILY 7 days #7 tabs 01/11/22 prednisone 20 mg tablet 40 mg (2 x 20 mg) PO DAILY #10 tabs 01/11/22 ketorolac 10 mg tablet 10 mg PO TID PRN pain 5 days #15 11/13/22 tabs lidocaine 5 % topical patch 1 patch topical DAILY PRN pain #15 11/13/22 ea levofloxacin 500 mg tablet 500 mg PO DAILY 10 days #10 tabs 03/10/24 metronidazole 500 mg tablet 500 mg PO TID #30 tabs 03/10/24 ondansetron 4 mg disintegrating 4 mg PO Q8H 4 days #12 tabs 03/10/24 tablet Allergies Allergy/AdvReac Type Severity Reaction Status Date / Time acetaminophen Allergy Severe RASH, Verified 03/10/24 09:16 ITCHY EYES, ? ANAPHYLAXIS Review of Systems Review of Systems Yes all other systems are reviewed and are negative Denies Sensory deficit (Neuro) [facility] Social History Social History Smoked in Last 30 Days: No Use of substances other than those prescribed or required for medical reasons: No Advance Directives: No Patient : No Physical Exam ED Vital Signs: Vital Signs - 24 hr 03/10/24 09:13 03/10/24 11:43 03/10/24 14:50 Temperature 98.1 F 97.2 F Pulse Rate 74 67 66 Respiratory Rate 16 16 16 Blood Pressure 122/71 148/72 H 139/73 Pulse Oximetry 98 100 99 Oxygen Delivery Method Room Air Room Air Room Air BMI result Body Mass Index 40.1 Const Other: patient in mild discomfort Nutritional Appearance: average body habitus Orientation/consciousness: oriented to person and patient oriented x3 Limitations: no limitations HENMT Head: Yes normal to inspection Ears: external ears normal General nose exam: Normal external nose present Mouth: Normal oral and palatal mucosa present and oropharynx normal Throat: Yes posterior oropharynx normal Eyes General: appearance normal, both eyes and all related structures Neck Neck: Yes normal visual inspection Chest Chest palpation & inspection: normal inspection of the chest Resp Auscultation: clear to auscultation bilaterally Cardio Jugular venous distension: no JVD Rate: regular rate Rhythm: regular rhythm Heart sounds: S1 normal heart sound present and S2 normal heart sound present GI Other: low suprapubic to left abdominal pain Auscultation: normal bowel sounds General: Yes no CVA tenderness Back/Spine/Pelvis Back: no CVA tenderness Skin General skin exam: no rashes or lesions noted Neuro General: oriented to person and patient oriented x3 Cranial nerves: Yes CN's II-XII intact bilaterally Motor exam (neuro): 5/5 motor strength present throughout Sensory Exam: No Sensory deficit (Neuro) Extrem General: Yes normal to inspection Psych Appearance: grossly normal Course Reevaluation(s) Reevaluation #1: patient with uncomplicated diverticulitis will dc home on levaquin and flagyl Time: 15:39 Medical Decision Making Differential Diagnosis Differential Diagnoses: The differential diagnosis associated with the presentation includes (UTI, diverticulitis, bowel perforation, bowel obstruction) Admission/Observation Consideration of admission/observation: Escalation of care including admission/observation considered (upon arrival patient considered for admission) Lab Data 03/10/24 09:23 03/10/24 09:23 Labs: Lab Results 03/10/24 03/10/24 Range/Units 09:23 11:50 WBC 7.2 (4.8-10.8) X10*3/uL RBC 4.06 L (4.20-5.50) X10*6/uL Hgb 12.2 (12.0-16.0) g/dl Hct 37.0 (37.0-47.0) % MCV 91.1 (80.0-98.0) fL MCH 30.0 (27.0-33.0) pg MCHC 33.0 (31.0-35.0) g/dl RDW 14.5 (11.0-16.0) % Plt Count 176 (160-400) X10*3/uL MPV 11.5 (9.4-12.3) fL Immature Gran % (Auto) 0.3 (0.0-0.4) % Neut % (Auto) 74.9 H (45-73) % Lymph % (Auto) 13.6 L (20-40) % [place] % (Auto) 8.2 (2-11) % Eos % (Auto) 2.4 (0-4) % Baso % (Auto) 0.6 (0-2) % Lymph # (Auto) 1.0 L (1.2-4.9) X10*3/uL [place] # (Auto) 0.6 (0.1-1.2) X10*3/uL Eos # (Auto) 0.2 (0.0-0.4) X10*3/uL Baso # (Auto) 0.0 (0.0-0.2) X10*3/uL Abs Immat Gran (auto) 0.02 (0.00-0.03) X10*3/uL Absolute Neuts (auto) 5.4 (2.0-8.3) x10*3/uL Absolute Nucleated RBC 0.000 (0.0-0.012) X10*3/uL Nucleated RBC % (auto) 0.0 (0.0-0.2) /100WBC Sodium 145 (135-145) mmol/L Potassium 4.3 (3.3-5.1) mmol/L Chloride 112 H (96-108) mmol/L Carbon Dioxide 24 (22-29) mmol/L Anion Gap 13 (12-20) BUN 16 (9-16) mg/dL Creatinine 0.78 (0.5-1.4) mg/dL Estim Creat Clear Calc 68.7 Estimated GFR > 60 Random Glucose 99 (60-115) mg/dL Calcium 9.3 D (8.4-10.2) mg/dL Total Bilirubin 0.7 (0.0-1.0) mg/dL Direct Bilirubin 0.2 (0.0-0.5) mg/dL AST 21 (5-31) U/L ALT 16 (0-31) U/L Alkaline Phosphatase 91 (39-117) U/L Total Protein 7.3 (6.5-8.0) g/dL Albumin 4.0 (3.5-5.0) g/dL Lipase 17 (8-78) U/L Urine Color Yellow Urine Appearance Clear Urine pH 5.5 (5.0-9.0) Ur Specific [place] 1.020 (1.005-1.025) Urine Protein 30 (1+) H (Neg-Trace) mg/dL Urine Glucose (UA) Negative (Negative) mg/dL Urine Ketones 15 (Negative) mg/dL Urine Blood Moderate (2+) H (Negative) Urine Nitrite Negative (Negative) Ur Leukocyte Esterase Small (1+) H (Negative) Urine RBC 11-20 H (0-2) /HPF Urine WBC 0-5 (0-5) /HPF Ur Squamous Epith Cells 3-5 (0-2) /HPF Urine Bacteria None Seen (None Seen) Hyaline Casts 0-2 (0-2) /LPF Independent Interpretation I performed an independent interpretation of an: CT Scan (fuzzy fat in lower abdomen consistent with diverticulitis) Radiology Impression Discussion of test interpretation with radiology: I have reviewed the radiologist's reading. (and agree) Chronic Conditions Patient?s care impacted by: Other (diverticulitis with resection) Medications Administered Discontinued Medications Generic Name Dose Route Start Last Admin Trade Name Freq PRN Reason Stop Dose Admin Ketorolac Tromethamine 60 mg 03/10/24 12:11 03/10/24 12:33 Ketorolac Tromethamine 60 Mg/2 Ml Vial IM 03/10/24 12:12 60 mg ONCE ONE Administration Discharge Plan Discharge Clinical Impression: Diverticulitis Patient Disposition: Home, Self-Care Instructions: Diverticulitis (ED), Diverticulitis Diet (ED) Prescriptions: New levofloxacin 500 mg tablet 500 mg PO DAILY 10 Days Qty: 10 0RF metronidazole 500 mg tablet 500 mg PO TID Qty: 30 0RF ondansetron 4 mg tablet,disintegrating 4 mg PO Q8H 4 Days Qty: 12 0RF No Action levofloxacin 750 mg tablet 750 mg PO DAILY 7 Days Qty: 7 0RF codeine-guaifenesin 10-100 mg/5 mL liquid 10 ml PO Q6H PRN (Reason: cough) Qty: 237 0RF albuterol sulfate [ProAir HFA] 90 mcg/actuation HFA aerosol inhaler 2 puff inhalation Q4-6H PRN (Reason: shortness of breath or wheezing) Qty: 8.5 0RF prednisone 20 mg tablet 40 mg PO DAILY Qty: 10 0RF ketorolac 10 mg tablet 10 mg PO TID PRN (Reason: pain) 5 Days Qty: 15 0RF lidocaine 5 % adhesive patch,medicated 1 patch topical DAILY PRN (Reason: pain) Qty: 15 0RF Rx Instructions: leave on most painful area for up to 12 hrs Referrals: Anjel Crandall III, MD [Primary Care Provider] - 5 days Print Language: Tanzanian
[2024-03-10 12:18] LABS: Bacteria Urine None Seen (None Seen); Hyaline Casts Urine 0-2 /LPF (0-2); UACC Culture Trigger YES; WBC Urine 0-5 /HPF (0-5)
[2024-03-10] MEDS: Ketorolac Tromethamine 60 MG/2 ML VIAL IM (12:33)
[2024-03-10 14:50] VITALS: BP 139/73; PULSE 66; RESP 16; O2SAT 99
[2024-03-10] MEDS: metroNIDAZOLE 500 MG TABLET PO (16:08)
[2024-03-10] MEDS: levoFLOXacin 500 MG TABLET PO (16:08)
--- NOTE | 2024-03-10 16:11 | PC.NURSE ---
pt medicated per MAR.
[2024-03-10 16:12] VITALS: BP 139/73; PULSE 66; RESP 16; TEMP 36.2; O2SAT 99
== END 2024-03-10 16:12 | disposition home or self-care (01) ==
PROVIDERS: Emergency Provider Emergency Medicine; PCP Internal Medicine
DX: K57.92 Diverticulitis of intestine, part unspecified, without perforation or abscess without bleeding (principal); R10.30 Lower abdominal pain, unspecified; M54.50 Low back pain, unspecified; Z79.899 Other long term (current) drug therapy
CPT/HCPCS: 36415; 74176; 80048; 80076; 81001; 81003; 83690; 85025; 87086; 96372; 99284; J1885

== ENCOUNTER 2024-04-14 10:50 | Emergency (ER) | payer OTHER, SELFPAY ==
--- NOTE | ~2024-04-14 | CT_ITS ---
EXAMINATION: CT ABDOMEN AND PELVIS WITHOUT CONTRAST CLINICAL INFORMATION: Left lower quadrant pain COMPARISON: CT abdomen and pelvis 03/10/2024 TECHNIQUE: Multidetector volumetric imaging was performed from the superior aspect of the liver through the pubic symphysis. Sagittal and coronal reformatted images were obtained on the technologist's workstation. This CT examination was performed using dose optimization techniques as appropriate, variously including the following: *Automated exposure control *Adjustment of mA and/or kV according to patient size (this includes techniques or standardized protocols for targeted exams where dose is matched to indication/reason for exam; i.e. extremities or head) *Use of iterative reconstruction technique DLP: 534 mGy-cm FINDINGS: LUNG BASES: The visualized lung bases are unremarkable. LIVER, GALLBLADDER, AND BILIARY TREE: The non-contrast liver is normal in size, shape, and attenuation. No focal hepatic lesion within the limits of noncontrast examination. No biliary ductal dilatation. The gallbladder is unremarkable with no evidence of radiopaque gallstones, gallbladder wall thickening, or obvious pericholecystic inflammatory changes. PANCREAS: Unremarkable. SPLEEN: Unremarkable. ADRENAL GLANDS: Unremarkable. KIDNEYS AND URETERS: The kidneys are normal in size, shape, and attenuation. No hydronephrosis, hydroureter, or calculi seen. No perinephric stranding. BLADDER: Underdistended with mild wall thickening. No bladder calculi. GASTROINTESTINAL TRACT: Small hiatal hernia. Stomach and small bowel are nondilated. Again noted multiple colonic diverticula most pronounced in the region of the sigmoid colon with associated wall thickening and mild surrounding fat stranding. No evidence of abscess or free air. Stable surgical anastomosis at the level of the sigmoid colon in the midline pelvis. The appendix appears unremarkable. ABDOMINAL WALL: Again noted postsurgical changes along the anterior abdominal wall. LYMPH NODES: No bulky abdominopelvic lymphadenopathy. VASCULAR: The abdominal aorta is nonaneurysmal. PELVIC VISCERA: There is post hysterectomy. No adnexal mass lesions. OSSEOUS STRUCTURES: No acute or suspicious osseous abnormality. Mild degenerative changes of the visualized spine. CT/CT abdomen pelvis wo IV con IMPRESSION: Acute diverticulitis of the sigmoid colon. No evidence of free air or abscess formation. Persistent wall thickening in the region of the sigmoid colon may be related to underlying muscular dystrophy.
[2024-04-14 10:57] VITALS: BP 135/79; PULSE 77; RESP 19; TEMP 36.6; O2SAT 98; BMI 34.4
--- NOTE | 2024-04-14 10:57 | ED_ITS ---
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 States symptoms began when she was going to work. She was seen in this department on 03/10 and diagnosed with diverticulitis, treated with Levaquin and Flagyl. Patient reports that she took antibiotics as prescribed and was feeling better until yesterday. Also complains of constipation and urinary frequency. Denies vomiting, denies hematochezia or melena. Denies fevers but reports chills. MD elicited complaint: abdominal pain Pertinent past history: diverticulitis Onset (ago): day(s) Pain Consistency: constant Location: LLQ Severity: severe Quality: aching Radiation: RLQ Exacerbating factors: movement Relieving factors: rest Context: recent antibiotic use Associated symptoms: nausea and chills Related Data Previous Rx's ?Medication ?Instructions ?Recorded albuterol sulfate 90 mcg/actuation 2 puff inhalation Q4-6H PRN 01/11/22 aerosol inhaler (ProAir HFA) shortness of breath or wheezing #8.5 grams codeine 10 mg-guaifenesin 100 mg/5 10 ml PO Q6H PRN cough #237 mL 01/11/22 mL oral liquid levofloxacin 750 mg tablet 750 mg PO DAILY 7 days #7 tabs 01/11/22 prednisone 20 mg tablet 40 mg (2 x 20 mg) PO DAILY #10 tabs 01/11/22 ketorolac 10 mg tablet 10 mg PO TID PRN pain 5 days #15 11/13/22 tabs lidocaine 5 % topical patch 1 patch topical DAILY PRN pain #15 11/13/22 ea levofloxacin 500 mg tablet 500 mg PO DAILY 10 days #10 tabs 03/10/24 metronidazole 500 mg tablet 500 mg PO TID #30 tabs 03/10/24 ondansetron 4 mg disintegrating 4 mg PO Q8H 4 days #12 tabs 03/10/24 tablet amoxicillin 875 mg-potassium 1 tab PO TID #30 tabs 04/14/24 clavulanate 125 mg tablet Allergies Allergy/AdvReac Type Severity Reaction Status Date / Time acetaminophen Allergy Severe RASH, Verified 04/14/24 10:58 ITCHY EYES, ? ANAPHYLAXIS Review of Systems Review of Systems As per HPI Yes all other systems are reviewed and are negative Constitutional: Reports as per HPI [facility] Social History Social History Advance Directives: No Advance Directives Information Provided: Yes Physical Exam ED Vital Signs: Vital Signs - 24 hr 04/14/24 10:57 Temperature 98 F Pulse Rate 77 Respiratory Rate 19 Blood Pressure 135/79 Pulse Oximetry 98 BMI result Body Mass Index 34.4 Vital signs have been reviewed and appear to be correct. Blood pressure normal. Heart rate normal. Respiratory rate normal. Temperature normal. Oxygen saturation normal. Const General: cooperative, healthy appearing and no acute distress Orientation/consciousness: oriented to person, oriented to place, oriented to time and patient oriented x3 Limitations: no limitations HENMT Head: Yes normocephalic and Yes atraumatic Ears: external ears normal General nose exam: Normal external nose present Face and sinus: Yes face symmetric Mouth: oropharynx normal and moist mucous membranes Throat: Yes uvula midline Eyes Pupils: Equal, round and reactive pupils present Neck Neck: Yes normal visual inspection and Yes supple Resp Effort & Inspection: normal respiratory effort and able to speak in complete sentences Auscultation: clear to auscultation bilaterally Cardio Rate: regular rate Rhythm: regular rhythm Heart sounds: S1 normal heart sound present and S2 normal heart sound present GI Palpation (GI): Soft to palpation, Tenderness to palpation present (GI) in the LLQ and in the RLQ, no guarding and No Rebound tenderness present Auscultation: normoactive bowel sounds General: Yes no CVA tenderness Back/Spine/Pelvis Back: no CVA tenderness Skin General skin exam: elasticity normal and turgor normal Neuro General: oriented to person, oriented to place, oriented to time, patient oriented x3, moves all extremities, no focal motor deficits and CN's II-XI intact bilaterally Cranial nerves: Yes Equal, round and reactive pupils present Cognition (Neuro): normal cognition Extrem General: Yes full ROM, Yes no pedal edema and Yes no calf tenderness Psych Mental Status: mental status grossly normal Affect: normal affect Thought process: Normal thought process present Course Course Course Narrative: This is a Rapid Medical Examination (RME) performed by John Lindsay PA-C in triage. Full HPI, ROS, assessment and treatment plan per primary provider in the Main ED. 58 y/o female with history of recurrent diverticulitis with history of colon resection in the past who presents to the ER for evaluation of 04/11 LLQ pain and nausea that started yesterday. Pain similar to prior diverticulitis episodes. Seen here 03/10 for the same and sent home with levaquin and flagyl. Plan: lab workup, imaging per primary provider. Medical Decision Making Medical Decision Making [facility] Narrative: Patient is a 58-year-old Swazi speaking female presenting to the emergency department with complaint of left lower quadrant pain and nausea since yesterday. On exam patient is awake, A+Ox3, VS WNL, afebrile, normal neurological exam without focal deficits, physical exam findings as above. Given reported symptoms and physical exam findings, initial differential includes diverticulitis, abscess, UTI, renal/ureteral calculi. Labs notable for no leukocytosis, no anemia, significant electrolyte abnormalities, no evidence of KAYA, normal transaminases. CT notable for acute diverticulitis of sigmoid colon without evidence of abscess. My interpretation is in agreement with the radiologist's interpretation. Urine specimen not obtained while patient in the emergency department. Will treat patient with Augmentin which should cover UTI as well. Instructed patient to follow up with PCP. Return precautions discussed at bedside. Patient verbalized understanding of and agreement with plan. Differential Diagnosis Differential Diagnoses: The differential diagnosis associated with the presentation includes As per [facility] Admission/Observation Consideration of admission/observation: Escalation of care including admission/observation considered Patient would have been admitted to the hospital had their work up had any findings where hospital admission was appropriate and their clinical presentation warranted hospital admission. Lab Data [facility] Lab Attestation statement: I reviewed the patient's lab results. As per [facility] 04/14/24 11:03 04/14/24 11:03 Labs: Lab Results 04/14/24 Range/Units 11:03 WBC 6.0 (4.8-10.8) X10*3/uL RBC 4.07 L (4.20-5.50) X10*6/uL Hgb 12.3 (12.0-16.0) g/dl Hct 36.9 L (37.0-47.0) % MCV 90.7 (80.0-98.0) fL MCH 30.2 (27.0-33.0) pg MCHC 33.3 (31.0-35.0) g/dl RDW 15.4 (11.0-16.0) % Plt Count 175 (160-400) X10*3/uL MPV 11.8 (9.4-12.3) fL Immature Gran % (Auto) 0.2 (0.0-0.4) % Neut % (Auto) 58.8 (45-73) % Lymph % (Auto) 25.2 (20-40) % [place] % (Auto) 9.4 (2-11) % Eos % (Auto) 5.6 H (0-4) % Baso % (Auto) 0.8 (0-2) % Lymph # (Auto) 1.5 (1.2-4.9) X10*3/uL [place] # (Auto) 0.6 (0.1-1.2) X10*3/uL Eos # (Auto) 0.3 (0.0-0.4) X10*3/uL Baso # (Auto) 0.1 (0.0-0.2) X10*3/uL Abs Immat Gran (auto) 0.01 (0.00-0.03) X10*3/uL Absolute Neuts (auto) 3.6 (2.0-8.3) x10*3/uL Absolute Nucleated RBC 0.000 (0.0-0.012) X10*3/uL Nucleated RBC % (auto) 0.0 (0.0-0.2) /100WBC Sodium 138 (135-145) mmol/L Potassium 4.0 (3.3-5.1) mmol/L Chloride 106 (96-108) mmol/L Carbon Dioxide 27 (22-29) mmol/L Anion Gap 9 L (12-20) BUN 15 (9-16) mg/dL Creatinine 0.77 (0.5-1.4) mg/dL Estim Creat Clear Calc 72.7 Estimated GFR > 60 Random Glucose 99 (60-115) mg/dL Calcium 9.0 (8.4-10.2) mg/dL Magnesium 2.0 (1.6-2.6) mg/dL Total Bilirubin 0.7 (0.0-1.0) mg/dL Direct Bilirubin 0.2 (0.0-0.5) mg/dL AST 21 (5-31) U/L ALT 15 (0-31) U/L Alkaline Phosphatase 82 (39-117) U/L Total Protein 7.2 (6.5-8.0) g/dL Albumin 3.9 (3.5-5.0) g/dL Independent Interpretation I performed an independent interpretation of an: CT Scan Interpretation: CT notable for acute diverticulitis of sigmoid colon without evidence of abscess. Radiology Impression Discussion of test interpretation with radiology: I have reviewed the radiologist's reading. Radiologist Impression: CT/CT abdomen pelvis wo IV con IMPRESSION: Acute diverticulitis of the sigmoid colon. No evidence of free air or abscess formation. Persistent wall thickening in the region of the sigmoid colon may be related to underlying muscular dystrophy. External Record Review External record reviewed: Inpatient record, Office record and Outpatient record Prescription Management I considered prescription management with: Antibiotic Discharge Plan Discharge Clinical Impression: Diverticulitis Patient Disposition: Home, Self-Care Instructions: Diverticulitis (ED), Diverticulitis Diet (ED) Additional Instructions: You were evaluated in the emergency department today for abdominal pain. Your CT scan showed evidence of diverticulitis. You are being treated with an additional course of antibiotics. Your urinalysis was not resulted prior to you leaving the emergency department, however, the antibiotics to treat your diverticulitis will also treat a UTI. Follow up with your primary care provider this week. Prescriptions: New amoxicillin-pot clavulanate 875-125 mg tablet 1 tab PO TID Qty: 30 0RF No Action levofloxacin 750 mg tablet 750 mg PO DAILY 7 Days Qty: 7 0RF codeine-guaifenesin 10-100 mg/5 mL liquid 10 ml PO Q6H PRN (Reason: cough) Qty: 237 0RF albuterol sulfate [ProAir HFA] 90 mcg/actuation HFA aerosol inhaler 2 puff inhalation Q4-6H PRN (Reason: shortness of breath or wheezing) Qty: 8.5 0RF prednisone 20 mg tablet 40 mg PO DAILY Qty: 10 0RF ketorolac 10 mg tablet 10 mg PO TID PRN (Reason: pain) 5 Days Qty: 15 0RF lidocaine 5 % adhesive patch,medicated 1 patch topical DAILY PRN (Reason: pain) Qty: 15 0RF Rx Instructions: leave on most painful area for up to 12 hrs levofloxacin 500 mg tablet 500 mg PO DAILY 10 Days Qty: 10 0RF metronidazole 500 mg tablet 500 mg PO TID Qty: 30 0RF ondansetron 4 mg tablet,disintegrating 4 mg PO Q8H 4 Days Qty: 12 0RF Referrals: [facility] [Provider Group] Print Language: Swazi
[2024-04-14 11:16] LABS: MANUAL DIFF FLAG NO
[2024-04-14 11:18] LABS: Basophils Absolute Auto 0.1 X10*3/uL (0.0-0.2); Basophils Percent Auto 0.8 % (0-2); Eosinophils Absolute Auto 0.3 X10*3/uL (0.0-0.4); Eosinophils Percent Auto 5.6 % (0-4); Hematocrit 36.9 % (37.0-47.0); Hemoglobin 12.3 g/dl (12.0-16.0); Imm Gran Abs Auto 0.01 X10*3/uL (0.00-0.03); Imm Gran Pct Auto 0.2 % (0.0-0.4); Lymphocytes Absolute Auto 1.5 X10*3/uL (1.2-4.9); Lymphocytes Percent Auto 25.2 % (20-40); Mean Corpuscular HGB Conc 33.3 g/dl (31.0-35.0); Mean Corpuscular Hemoglobin 30.2 pg (27.0-33.0); Mean Corpuscular Volume 90.7 fL (80.0-98.0); Mean Platelet Volume 11.8 fL (9.4-12.3); Monocytes Absolute Auto 0.6 X10*3/uL (0.1-1.2); Monocytes Percent Auto 9.4 % (2-11); Neutrophils Absolute Auto 3.6 x10*3/uL (2.0-8.3); Neutrophils Percent Auto 58.8 % (45-73); Platelet Count 175 X10*3/uL (160-400); Red Blood Count 4.07 X10*6/uL (4.20-5.50); Red Cell Distribution Width 15.4 % (11.0-16.0)
[2024-04-14 11:36] LABS: Alanine Aminotransferase 15 U/L (0-31); Albumin Level 3.9 g/dL (3.5-5.0); Alkaline Phosphatase 82 U/L (39-117); Anion Gap 9 (12-20); Aspartate Amino Transferase 21 U/L (5-31); Bilirubin Direct 0.2 mg/dL (0.0-0.5); Bilirubin Total 0.7 mg/dL (0.0-1.0); Blood Urea Nitrogen 15 mg/dL (9-16); Carbon Dioxide 27 mmol/L (22-29); Chloride 106 mmol/L (96-108); Creatinine Clr Calc Pharmacy 72.7; Estimated Glomerular Filt Rate > 60; Glucose Random 99 mg/dL (60-115); Sodium 138 mmol/L (135-145); Total Protein 7.2 g/dL (6.5-8.0)
--- NOTE | 2024-04-14 15:38 | PC.NURSE ---
Spoke with pt who is complains of diverticulitis sx. Similar to sx prior to surgery in 2020. States abdominal pain. Has been taking abx levaquin and flagyl.
[2024-04-14 16:36] VITALS: BP 135/79; PULSE 77; RESP 19; TEMP 36.6; O2SAT 98
== END 2024-04-14 16:45 | disposition home or self-care (01) ==
PROVIDERS: Physician Assistant; Emergency Provider Emergency Medicine; PCP Internal Medicine
DX: K57.32 Diverticulitis of large intestine without perforation or abscess without bleeding (principal); R10.32 Left lower quadrant pain
CPT/HCPCS: 36415; 74176; 80048; 80076; 83735; 85025; 96374; 99282; 99284

== ENCOUNTER 2024-09-05 16:28 | Emergency (ER) | payer OTHER, SELFPAY ==
--- NOTE | ~2024-09-05 | CT_ITS ---
CLINICAL HISTORY: Epigastric pain previous history of hernia surgery CT abdomen and pelvis with contrast Comparison: CT/SR - CT ABDOMEN PELVIS WO IV CON - 04/14/24 13:27 EDT Findings: The lung bases are clear. The liver, gallbladder, spleen, pancreas, kidneys and adrenal glands are normal in appearance. Fluid-filled mildly prominent loops of small bowel in the mid left abdomen measuring up to 2.7 cm. Proximal small bowel and distal small bowel are decompressed. Colon is unremarkable with moderate fecal loading. There are scattered colonic diverticula, however no evidence of diverticulitis. There has been previous ventral hernia repair with mesh. Normal appendix. No acute fracture. IMPRESSION: Prominent but not pathologically dilated loops of small bowel in the mid left abdomen, which could be compatible with focal ileus. This document has been electronically signed by: Alex Hare MD on 09/05/2024 19:58:34
[2024-09-05 16:38] VITALS: BP 136/79; PULSE 69; RESP 16; TEMP 36.7; O2SAT 95; BMI 36.4
[2024-09-05 17:08] LABS: MANUAL DIFF FLAG NO
[2024-09-05 17:10] LABS: Basophils Percent Auto 0.4 % (0-2); Eosinophils Absolute Auto 0.1 X10*3/uL (0.0-0.4); Eosinophils Percent Auto 1.3 % (0-4); Hematocrit 38.9 % (37.0-47.0); Hemoglobin 12.8 g/dl (12.0-16.0); Imm Gran Abs Auto 0.01 X10*3/uL (0.00-0.03); Imm Gran Pct Auto 0.1 % (0.0-0.4); Lymphocytes Absolute Auto 1.7 X10*3/uL (1.2-4.9); Lymphocytes Percent Auto 24.4 % (20-40); Mean Corpuscular HGB Conc 32.9 g/dl (31.0-35.0); Mean Corpuscular Volume 91.1 fL (80.0-98.0); Mean Platelet Volume 11.2 fL (9.4-12.3); Monocytes Absolute Auto 0.6 X10*3/uL (0.1-1.2); Monocytes Percent Auto 8.4 % (2-11); Neutrophils Absolute Auto 4.5 x10*3/uL (2.0-8.3); Neutrophils Percent Auto 65.4 % (45-73); Platelet Count 201 X10*3/uL (160-400); Red Blood Count 4.27 X10*6/uL (4.20-5.50); Red Cell Distribution Width 15.4 % (11.0-16.0); White Blood Count 6.9 X10*3/uL (4.8-10.8)
[2024-09-05 17:11] LABS: Appearance Urine Clear; Color Urine Yellow; Glucose Urine UA Negative (Negative); Leukocyte Esterase Urine Small (1+) (Negative); Nitrite Urine Negative (Negative); Specific Gravity - Urine >= 1.030 (1.005-1.025); UMIC TRIGGER UACC YES; Urine Blood Moderate (2+) (Negative); Urine Ketones Trace mg/dL (Negative); Urine Protein Trace mg/dL (Neg-Trace)
[2024-09-05 17:25] LABS: Bacteria Urine Trace (None Seen); Hyaline Casts Urine 0-2 /LPF (0-2); RBC Urine >20 /HPF (0-2); UACC Culture Trigger YES; WBC Urine 0-5 /HPF (0-5)
[2024-09-05 17:28] LABS: Lipase 16 U/L (8-78); Magnesium 2.1 mg/dL (1.6-2.6)
[2024-09-05 17:29] LABS: Alanine Aminotransferase 14 U/L (0-31); Albumin Level 3.9 g/dL (3.5-5.0); Anion Gap 12 (12-20); Aspartate Amino Transferase 18 U/L (5-31); Bilirubin Total 0.5 mg/dL (0.0-1.0); Blood Urea Nitrogen 26 mg/dL (9-16); Calcium 9.2 mg/dL (8.4-10.2); Carbon Dioxide 30 mmol/L (22-29); Chloride 107 mmol/L (96-108); Creatinine Clr Calc Pharmacy 63.6; Estimated Glomerular Filt Rate > 60; Glucose Random 130 mg/dL (60-115); Potassium 4.2 mmol/L (3.3-5.1); Sodium 145 mmol/L (135-145); Total Protein 7.3 g/dL (6.5-8.0)
[2024-09-05 17:53] LABS: Alkaline Phosphatase 108 U/L (39-117)
--- NOTE | 2024-09-05 17:58 | ECG_ITS ---
Test Reason : ABDOMINAL PAIN Blood Pressure : / mmHG Vent. Rate : 064 BPM Atrial Rate : 064 BPM P-R Int : 172 ms QRS Dur : 082 ms QT Int : 436 ms P-R-T Axes : 032 025 030 degrees QTc Int : 449 ms Normal sinus rhythm Normal ECG When compared with ECG of 10-JAN-2022 20:35, Vent. rate has decreased BY 49 BPM Referred By: Carola Art Electronically Signed By:DANG SAENZ MD
--- NOTE | 2024-09-05 18:00 | ED.ABDPAIN ---
HPI - Abdominal Pain General Chief Complaint: Abdominal Pain Stated Complaint: abd pain Time Seen by Provider: 09/05/24 17:36 History of Present Illness HPI narrative: Patient is a 58-year-old female presents today with having abdominal pain. The pain is over the epigastric area. It has been ongoing since 04:00 o'clock this morning. Not associated with any chest pain. There is no diaphoresis. There is no change in bowel movement. Previous history of multiple abdominal surgeries including hernia, hysterectomy, diverticulitis bowel resection. Denies any fever chills. Denies any pain on urination. She is from home. Related Data Previous Rx's ?Medication ?Instructions ?Recorded albuterol sulfate 90 mcg/actuation 2 puff inhalation Q4-6H PRN 01/11/22 aerosol inhaler (ProAir HFA) shortness of breath or wheezing #8.5 grams codeine 10 mg-guaifenesin 100 mg/5 10 ml PO Q6H PRN cough #237 mL 01/11/22 mL oral liquid levofloxacin 750 mg tablet 750 mg PO DAILY 7 days #7 tabs 01/11/22 prednisone 20 mg tablet 40 mg (2 x 20 mg) PO DAILY #10 tabs 01/11/22 ketorolac 10 mg tablet 10 mg PO TID PRN pain 5 days #15 11/13/22 tabs lidocaine 5 % topical patch 1 patch topical DAILY PRN pain #15 11/13/22 ea levofloxacin 500 mg tablet 500 mg PO DAILY 10 days #10 tabs 03/10/24 metronidazole 500 mg tablet 500 mg PO TID #30 tabs 03/10/24 ondansetron 4 mg disintegrating 4 mg PO Q8H 4 days #12 tabs 03/10/24 tablet amoxicillin 875 mg-potassium 1 tab PO TID #30 tabs 04/14/24 clavulanate 125 mg tablet pantoprazole 40 mg tablet,delayed 40 mg PO DAILY #14 tabs 09/05/24 release (Protonix) Allergies Allergy/AdvReac Type Severity Reaction Status Date / Time acetaminophen Allergy Severe RASH, Verified 09/05/24 16:41 ITCHY EYES, ? ANAPHYLAXIS Review of Systems Review of Systems Positive abdominal pain Yes all other systems are reviewed and are negative PMFSH Past Medical History Attestation statement: The following information was validated with the patient. Social History Social History Advance Directives: No Advance Directives Information Provided: No Do you have a plan to hurt others: No Plan Physical Exam ED Vital Signs: Vital Signs - 24 hr 09/05/24 16:38 09/05/24 18:28 Temperature 98.0 F 98.5 F Pulse Rate 69 62 Respiratory Rate 16 13 Blood Pressure 136/79 134/77 Pulse Oximetry 95 96 Oxygen Delivery Method Room Air Room Air BMI result Body Mass Index 36.4 Appearance: Alert. Oriented X3. No acute distress. Eyes: Pupils equal, round and reactive to light. ENT: Pharynx normal. Neck: Normal inspection. Neck supple. No lymph nodes noted. No crepitus CVS: Normal heart rate and rhythm. Pulses normal. Normal S1 and S2 Respiratory: No respiratory distress. Breath sounds normal. No Wheezing. No rales Abdomen: Soft and nontender. No rigidity. No distention. good BS x4 Skin: Skin warm and dry. Normal skin color. Normal skin turgor. Extremities: No lower extremity edema. Neurovascular intact to all extremities. No Lacerations. No Rash Neuro: Oriented X 3. No motor deficit. No sensory deficit. Moving all extermities. No slurred speech Medical Decision Making Medical Decision Making MDM Narrative: Patient's CT scan showed no evidence of obstruction abscess perforation question focal ileus noted. Of unsure significance. Patient's urine showed no signs of infection. LFTs are normal. No signs of biliary disease. Lipase is normal. No signs of pancreatitis. Patient's white count is normal. Kidney function is normal. My interpretation patient's EKG showed a sinus rhythm heart rate is 60 AL QRS QTC normal no acute ST segment elevation. Patient in no distress. Repeat abdominal exam is soft. Question secondary to reflux. Will start patient on PPI. Differential Diagnosis Differential Diagnoses: The differential diagnosis associated with the presentation includes Biliary disease versus ACS versus pancreatitis versus obstruction versus abscess Admission/Observation Consideration of admission/observation: Escalation of care including admission/observation considered Lab Data [facility] Lab Attestation statement: I reviewed the patient's lab results. 09/05/24 17:00 09/05/24 17:00 Labs: Lab Results 09/05/24 09/05/24 Range/Units 17:00 17:04 WBC 6.9 (4.8-10.8) X10*3/uL RBC 4.27 (4.20-5.50) X10*6/uL Hgb 12.8 (12.0-16.0) g/dl Hct 38.9 (37.0-47.0) % MCV 91.1 (80.0-98.0) fL MCH 30.0 (27.0-33.0) pg MCHC 32.9 (31.0-35.0) g/dl RDW 15.4 (11.0-16.0) % Plt Count 201 (160-400) X10*3/uL MPV 11.2 (9.4-12.3) fL Immature Gran % (Auto) 0.1 (0.0-0.4) % Neut % (Auto) 65.4 (45-73) % Lymph % (Auto) 24.4 (20-40) % Angelina % (Auto) 8.4 (2-11) % Eos % (Auto) 1.3 (0-4) % Baso % (Auto) 0.4 (0-2) % Lymph # (Auto) 1.7 (1.2-4.9) X10*3/uL Angelina # (Auto) 0.6 (0.1-1.2) X10*3/uL Eos # (Auto) 0.1 (0.0-0.4) X10*3/uL Baso # (Auto) 0.0 (0.0-0.2) X10*3/uL Abs Immat Gran (auto) 0.01 (0.00-0.03) X10*3/uL Absolute Neuts (auto) 4.5 (2.0-8.3) x10*3/uL Absolute Nucleated RBC 0.000 (0.0-0.012) X10*3/uL Nucleated RBC % (auto) 0.0 (0.0-0.2) /100WBC Sodium 145 (135-145) mmol/L Potassium 4.2 (3.3-5.1) mmol/L Chloride 107 (96-108) mmol/L Carbon Dioxide 30 H (22-29) mmol/L Anion Gap 12 (12-20) BUN 26 H (9-16) mg/dL Creatinine 0.87 (0.5-1.4) mg/dL Estim Creat Clear Calc 63.6 Estimated GFR > 60 Random Glucose 130 H (60-115) mg/dL Calcium 9.2 (8.4-10.2) mg/dL Magnesium 2.1 (1.6-2.6) mg/dL Total Bilirubin 0.5 (0.0-1.0) mg/dL AST 18 (5-31) U/L ALT 14 (0-31) U/L Alkaline Phosphatase 108 (39-117) U/L Total Protein 7.3 (6.5-8.0) g/dL Albumin 3.9 (3.5-5.0) g/dL Lipase 16 (8-78) U/L Urine Color Yellow Urine Appearance Clear Urine pH 6.0 (5.0-9.0) Ur Specific [place] >= 1.030 H (1.005-1.025) Urine Protein Trace (Neg-Trace) mg/dL Urine Glucose (UA) Negative (Negative) mg/dL Urine Ketones Trace (Negative) mg/dL Urine Blood Moderate (2+) H (Negative) Urine Nitrite Negative (Negative) Ur Leukocyte Esterase Small (1+) H (Negative) Urine RBC >20 H (0-2) /HPF Urine WBC 0-5 (0-5) /HPF Ur Squamous Epith Cells 6-10 (0-2) /HPF Urine Bacteria Trace (None Seen) Hyaline Casts 0-2 (0-2) /LPF Independent Interpretation I performed an independent interpretation of an: EKG (Sinus heart rate is 65 AL QRS QTC normal there is no acute ST segment elevation noted.) Radiology Impression Discussion of test interpretation with radiology: I have reviewed the radiologist's reading. Social Determinants Patient?s care significantly limited by Social Determinants of Health including: Problems related to primary support group Medications Administered Discontinued Medications Generic Name Dose Route Start Last Admin Trade Name Freq PRN Reason Stop Dose Admin Al Hydroxide/Mg Hydroxide 30 ml 09/05/24 17:58 09/05/24 19:02 Magnesium Hydrox/Alum Hydrox 30 Ml Oral.Susp PO 09/05/24 17:59 30 ml ONCE ONE Administration Sodium Chloride 1,000 mls @ 999 mls/hr 09/05/24 18:00 09/05/24 18:46 Ns IV 09/05/24 19:00 999 mls/hr .Q1H1M FREEMAN Administration Iohexol 85 ml 09/05/24 19:34 09/05/24 19:34 Iohexol 350 Mg/Ml 100 Ml Infus..Btl IV 09/05/24 19:35 85 ml ONCE ONE Administration Ondansetron HCl 4 mg 09/05/24 17:59 09/05/24 19:02 Ondansetron Hcl 4 Mg/2 Ml Vial IVPUSH 09/05/24 18:00 4 mg ONCE ONE Administration Discharge Plan Discharge Clinical Impression: Abdominal pain Patient Disposition: Home, Self-Care Instructions: Gastritis (ED), Abdominal Pain (ED) Prescriptions: New pantoprazole [Protonix] 40 mg tablet,delayed release (DR/EC) 40 mg PO DAILY Qty: 14 0RF No Action levofloxacin 750 mg tablet 750 mg PO DAILY 7 Days Qty: 7 0RF codeine-guaifenesin 10-100 mg/5 mL liquid 10 ml PO Q6H PRN (Reason: cough) Qty: 237 0RF albuterol sulfate [ProAir HFA] 90 mcg/actuation HFA aerosol inhaler 2 puff inhalation Q4-6H PRN (Reason: shortness of breath or wheezing) Qty: 8.5 0RF prednisone 20 mg tablet 40 mg PO DAILY Qty: 10 0RF ketorolac 10 mg tablet 10 mg PO TID PRN (Reason: pain) 5 Days Qty: 15 0RF lidocaine 5 % adhesive patch,medicated 1 patch topical DAILY PRN (Reason: pain) Qty: 15 0RF Rx Instructions: leave on most painful area for up to 12 hrs levofloxacin 500 mg tablet 500 mg PO DAILY 10 Days Qty: 10 0RF metronidazole 500 mg tablet 500 mg PO TID Qty: 30 0RF ondansetron 4 mg tablet,disintegrating 4 mg PO Q8H 4 Days Qty: 12 0RF amoxicillin-pot clavulanate 875-125 mg tablet 1 tab PO TID Qty: 30 0RF Referrals: Anjel Crandall III, MD [Primary Care Provider] - 09/08/24 Print Language: Nauruan
[2024-09-05 18:28] VITALS: BP 134/77; PULSE 62; RESP 13; TEMP 36.9; O2SAT 96
[2024-09-05] MEDS: 0.9 % Sodium Chloride 1,000 ML 999 ML IV (18:46)
[2024-09-05] MEDS: ondansetron HCL 4 MG/2 ML VIAL IVPUSH (19:02)
[2024-09-05] MEDS: Magnesium Hydrox/Alum Hydrox 30 ML ORAL.SUSP PO (19:02)
[2024-09-05] MEDS: iohexoL 350 MG/ML 100 ML INFUS..BTL 85 ML IV (19:34)
[2024-09-05] MEDS: Famotidine/PF 20 MG in 0.9 % Sodium Chloride 50 ML 200 MG IV (20:54)
[2024-09-05] MEDS: HYDROmorphone HCl 0.5 MG/0.5 ML SYRINGE IVPUSH (20:54)
[2024-09-05 20:57] VITALS: BP 138/90; PULSE 72; RESP 16; TEMP 36.9; O2SAT 96
[2024-09-05 21:05] LABS: Troponin-I High Sensitivity < 2.7 ng/L (<3.5-17.0)
--- NOTE | 2024-09-05 21:38 | PC.NURSE ---
pt reports pain improved to 9/10 after meds per mar, appears more comfortable. d/c education provided by MD Art and this RN.
[2024-09-05 21:41] VITALS: BP 139/77; PULSE 80; RESP 16; TEMP 36.9; O2SAT 97
== END 2024-09-05 21:44 | disposition home or self-care (01) ==
PROVIDERS: Physician Assistant; Emergency Provider Emergency Medicine Emergency Medical Services; PCP Internal Medicine
DX: R10.13 Epigastric pain (principal)
CPT/HCPCS: 36415; 74177; 80053; 81001; 83690; 83735; 84484; 85025; 87086; 93005; 96361; 96365; 96375; 99284; 99285; J1171; J2405; Q9967

== ENCOUNTER → 2024-09-05 17:58 | Outpatient (BNV) | payer OTHER, SELFPAY | PROVIDERS: Emergency Provider Emergency Medicine Emergency Medical Services; PCP Internal Medicine; Visit Provider Internal Medicine Cardiovascular Disease | DX: R10.9 Unspecified abdominal pain (principal) | CPT/HCPCS: 93010 ==

== ENCOUNTER → 2024-09-05 17:58 | Outpatient (BNV) | payer OTHER, SELFPAY | PROVIDERS: Emergency Provider Emergency Medicine Emergency Medical Services; PCP Internal Medicine; Visit Provider Radiology Diagnostic Radiology | DX: K56.7 Ileus, unspecified (principal) | CPT/HCPCS: 74177 ==

== ENCOUNTER 2024-12-19 12:04 | Emergency (ER) | payer OTHER, SELFPAY ==
[2024-12-19 12:07] VITALS: BP 117/70; PULSE 81; RESP 16; TEMP 36.1; O2SAT 97; BMI 37.2
--- OUTSIDE RECORDS SUMMARY | 2024-12-19 12:25 | XMS_ITS | Clinical Summary ---
Author Organization [facility] Address [address] [place] [address] Phone Care Team Providers Care Director Speech Name Role Phone Anjel Crandall MD Primary Care Provider [phone] Allergies Active Allergy Reactions Criticality Noted Date Comments Acetaminophen Itching 01/19/2010 Medications ibuprofen (ADVIL,MOTRIN) 800 mg tablet Take 1 tablet (800 mg total) by mouth every 8 (eight) hours if needed. 04/16/2024 Active pantoprazole (PROTONIX) 40 mg EC tablet Take 1 tablet (40 mg total) by mouth 1 (one) time each day. 09/06/2024 Active Active Problems Problem Noted Date Diagnosed Date Microscopic hematuria 06/16/2024 Overview (06/16/2024): uro at [place] Depression with anxiety 06/16/2024 History of pulmonary embolism 06/16/2024 Overview (06/16/2024): Bilateral PE s/p left colectomy (February 2020) History of hepatitis B 06/16/2024 Morbid obesity with BMI of 4 0.0-44.9, adult (CMS/HCC V24, CMS/HCC V28) 06/16/2024 Obesity (BMI 30-39.9) 06/19/2022 Incontinence of feces 11/01/2021 Insomnia 11/01/2021 S/P colectomy 11/01/2021 Glaucoma suspect 10/17/2020 Overview (06/16/2024): Low risk, both eyes. [facility]. Combined forms of age-related cataract of both e yes 10/17/2020 Overview (06/16/2024): Follwed at [facility]. Reccomendations as of 08/21/2020 Not visually signficant, observe. Lumbar radiculitis 06/30/2020 Varicose veins of legs 02/28/2018 Chronic pain of right knee 02/28/2018 Chronic back pain 09/06/2017 Superficial thrombophlebitis 11/02/2015 Overview (06/16/2024): In 2012 Papanicolaou smear of cervix with low grade squamous intraepithelial lesion (LGSIL) 09/18/2011 Overview (06/16/2024): Previous LEEP for WILTON 2 with focally + ectocervical margin (Leighann Payton MD) Colpo & ECC neg 09/18/11. Pap 01/30/12 - normal. Pap 07/2012 WILTON 1 but neg HPV. Colposcopy repeated 09/24/12 - biopsy and ECC normal. Repeat Pap & HPV negative 07/2013. 2014 - hysterectomy Pap 2016 WILTON 1, will repeat colposcopy of vagina Pap smear 06/2018 LSIL HR HPV + Pap smear 07/2019 Neg HRHPV neg Leiomyoma of uterus 08/02/2011 Hoarseness of voice 05/25/2011 Overview (06/16/2024): Right vocal cord palsy. Chronic, she was recommended therapy but she could no afford the copays Diverticulitis 01/19/2010 Overview (06/16/2024): Colonoscopy January 2016: Dense sigmoid diverticulosis First episode diverticulitis approx 2008. Second episode 2018. PPD positive, treated 01/19/2010 Encounters Date Type Department Care Team Description 12/17/2024 Telephone Adult Medicine [address] [address] Anjel Crandall MD Laryngitis; Sore Throat 10/31/2024 1:10 PM EST - 10/31/2024 11:59 PM EST Hospital Encounter Radiology Department - [address] [phone] Encounter for screening mammogram for breast cancer Discharge Disposition: Home or Self Care 10/07/2024 Telephone [facility]ology [facility] [address] [facility] [address] [place] [address] Meche Curry MD special procedure 10/01/2024 3:20 PM EST Office Visit [facility] [address] [facility] [address] [place] [address] Tamar Lee NP Epigastric abdominal pain 10/01/2024 Telephone [facility] [address] [place] [address] Tamar Lee NP from Last 3 Months Immunizations Name Administration Dates Next Due Influenza Quadravalent, MDCK , 0.5ml, preservative free (Flucelvax) 6mo and older 06/19/2022,09/14/2021,07/20/2019 Influenza Quadravalent, MDCK , 0.5ml, with preservative (Flucelvax) 6mo and older 05/23/2018,09/06/2017 Influenza trivalent, 0.5mL, preservative free (Fluarix; FluLaval; Fluzone) ages 6mo and older (Afluria) 3 years and older 05/20/2013,07/03/2012,05/25/2011,2009 MMR, measles mumps and rubel la Live (Priorix; M-M-R II) 12mo and older 03/04/2024 Moderna SARS-CoV-2 COVID-19, mRNA, LNP-S, preservative free 01/06/2021,12/09/2020 Tdap Tetanus diptheria acell ular pertussis (Boostrix; Adacel) 7yo and older 02/18/2024,05/25/2011 Surgical History Surgery Date Site/Laterality Comments TUBAL LIGATION PROCEDURE: HISTORICAL TUBAL LIGATION CERVICAL BIOPSY W/ LOOP ELECTRODE EXCISION PROCEDURE: NM CONIZATION CERVIX W/WO D&C RPR ELTRD EXC; COMMENT: Patient see Dr Burton at [facility] [place], WILTON 2 with + exocerv margin (focal) OTHER SURGICAL HISTORY 10/27/14 PROCEDURE: HISTORICAL TOTAL HYSTERECTOMY W/O BSO; COMMENT: fibroids COLONOSCOPY 01/13/2016 PROCEDURE: HISTORICAL COLONOSCOPY; COMMENT: tics; repeat in 10 yrs COLONOSCOPY 03/30/2019 PROCEDURE: HISTORICAL COLONOSCOPY; COMMENT: diverticulosis; otherwise negative. OTHER SURGICAL HISTORY 02/23/2020 Left PROCEDURE: NM LAPS COLECTOMY PRTL W/END CLST & CLSR DSTL SGM HERNIA REPAIR 10/2020 PROCEDURE: REPAIR UMBILICAL HERNIA HERNIA REPAIR 10/25/2020 PROCEDURE: NM REPAIR FIRST ABDOMINAL WALL HERNIA; COMMENT: laparoscopic supraumbilical midline incisional hernia repair with mesh - Dr. Avelino De Leon BREAST BIOPSY 2013 Left PROCEDURE: BX BREAST; PERC NEEDLE CORE W/IMAG GUID; COMMENT: lt. breast bx.benign Medical History Medical History Date Comments Microscopic hematuria DX:Microsc opic hematuria; COMMENT: uro at [place] Hepatitis B carrier (CMS/HCC V24, CMS/HCC V28) DX:Hepatitis B carrier (HCC) Depression with anxiety DX:Depre ssion with anxiety History of colonoscopy 2015 DX:Histor y of colonoscopy; COMMENT: repeat 5 yr Family history of colon canc er in father DX:Family history of colon c ancer in father S/P left colectomy 02/23/2020 DX:S/P left c olectomy; COMMENT: Complications: b/l PE, bleeding from umbilical incision, developing hematoma Normocytic anemia DX:Normocytic anemia Family History Medical History Relation Name Comments Blindness Brother 1 Glaucoma Brother 1 Colon cancer Father Lung cancer Father Stomach cancer Father's side distant [place] cousin Cataracts Mother Breast cancer Mother's side niece dx'd 30s niece (sist er's daughter) Macular degeneration Neg Hx Strabismus Neg Hx Relation Name Status Comments Brother 1 Alive mental retardat ion Brother 2 Alive glaucoma Brother 3 Alive Brother 4 Alive Brother 5 Alive Brother 6 Alive Daughter 1 Alive Daughter 2 Alive Daughter 3 Alive Father (Age 90) lung CA an d chronic lung disease Father's side Mother (Age 67) diabetes, DJD Mother's side niece dx'd 30s Sister 1 Alive Sister 2 Alive Son 1 Alive Son 2 Alive Social History Tobacco Use Types Packs/Day Years Used Date Smoking Tobacco: Never Smokeless Tobacco: Never Tobacco Cessation:Counseling Given: Not Answered Alcohol Use Standard Drinks/Week Comments Yes 0 (1 standard drink = 0.6 oz pur e alcohol) Comments Unknown Sex and Gender Information Value Date Recorded Sex Assigned at Not on file Legal Sex Female 4:38 AM EST Gender Identity Not on file Sexual Orientation Not on file Obstetrics History Para Term AB IAB SAB Ectopic Multiple Livin g Live Births 5 5 5 5 Date Outcome GA Total Labor Labor/2nd/3rd Weight Sex Type Anes PTL Emmie A1 A5 Name Clin Term Term Term Term Term Last Filed Vital Signs Vital Sign Reading Time Taken Comments Blood Pressure 112/75 10/01/2024 2:49 PM EST Pulse 85 10/01/2024 2:49 PM EST Temperature 36.7 ??C (98.1 ??F) 09/08/2024 10:[address] Respiratory Rate 16 09/08/2024 10:04 AM EST Oxygen Saturation 98% 10/01/2024 2:49 PM EST Inhaled Oxygen Concentration - - Weight 81.6 kg (180 lb) 10/02/2024 3:00 PM EST Height 149.9 cm (4' 11 ) 10/02/2024 3:00 PM EST Body Mass Index 36.36 10/02/2024 3:00 PM EST Plan of Treatment Health Maintenance Due Date Last Done Comments Pneumococcal Vaccine: 50+ Years (1 of 1 - PCV) 2013 Zoster Vaccines (2 of 2) 11/02/2020 09/07/2020 Depression Screening 08/11/2022 Hepatitis C Screening 08/11/2022 Social Influencers of Health Screening 08/11/2022 RSV Immunization Adult Patients (1 - Risk 60-74 years 1-dose series) 2023 COVID-19 Vaccine ( season) 2024 01/06/2021, 12/09/2020 Influenza Vaccine (Season Ended) 2025 06/19/2022, 09/14/2021, 09/07/2020, Additional history exists Cervical Cancer Screening: Pap Smear 10/18/2025 10/18/2022, 07/20/2019, 06/11/2018 Breast Cancer Screening 10/31/2026 11/01/19, 10/05/2023, 09/22/2022, Additional history exists Cholesterol Screening (Lipid Panel) 02/17/2029 02/18/2024 Colorectal Cancer Screening: Colonoscopy 03/30/2029 03/30/2019 DTaP,Tdap,and Td Vaccines (3 - Td or Tdap) 02/17/2034 02/18/2024, 05/25/2011 HIV Screening Completed 02/18/2024 MMR Vaccines Aged Out 03/04/2024 No longer eligi ble based on patient's age to complete this topic HIB Vaccines Aged Out No longer eligi ble based on patient's age to complete this topic HPV Vaccines Aged Out No longer eligi ble based on patient's age to complete this topic Hepatitis A Vaccines Aged Out No long er eligible based on patient's age to complete this topic Hepatitis B Vaccines Aged Out No long er eligible based on patient's age to complete this topic IPV Vaccines Aged Out No longer eligi ble based on patient's age to complete this topic Meningococcal ACWY Vaccine Aged Out N o longer eligible based on patient's age to complete this topic Meningococcal B Vaccine Aged Out No l onger eligible based on patient's age to complete this topic Pneumococcal Vaccine: Pediatrics (0 to 5 Years) and At-Risk Patients (6 to 64 Years) Aged Out No longer eligible based on patient's age to complete this topic RSV Immunization Patients Under 20 months Aged Out No longer eligible based on patient's age to complete this topic Varicella Vaccines Aged Out No longer eligible based on patient's age to complete this topic Procedures Procedure Name Priority Date/Time Associated Diagnosis Comments MG MAMMO DIGITAL SCREENING W DEVON BILAT Routine 10/31/2024 1:22 PM EST Encounter for screening mammogram for breast cancer PAP SMEAR Routine 10/18/2022 from Last 3 Months or Most Recently Relevant to Health Maintenance Results * MG Mammo Digital Screening w Devon bilat (10/31/2024 1:22 PM EST) Anatomical Region Laterality Modality Breast Bilateral Mammography 11/02/2024 5:33 PM EST Impressions 11/02/2024 5:36 PM EST 1. No mammographic evidence of malignancy 2. Scattered fibroglandular tissue BI-RADS CATEGORY: 2 - BENIGN RECOMMENDATION: Screening bilateral mammogram is recommended in 1 year. Mammo Location: [facility], [address] [place] [address], [id number], . -------- FINAL REPORT -------- Dictated By: Mahnaz Benton Dictated Date: 11/02/2024 17:33 ET Assigned Physician: Mahnaz Benton Reviewed and Electronically Signed By: Mahnaz Benton Signed Date: 11/02/2024 17:36 ET Workstation ID: [id number] Transcribed By: Self Edit Transcribed Date: 11/02/2024 17:33 ET Narrative 11/02/2024 5:36 PM EST A BILATERAL DIGITAL 3D SCREENING MAMMOGRAPHY HISTORY: Routine screening. ??Family history of breast cancer COMPARISON: Multiple priors dating back to 08/10/2020 Technique: Bilateral full field digital mammography (3D) was performed using standard CC and MLO projections CAD ??was used to evaluate this mammogram. FINDINGS: Right: No suspicious masses, groups of microcalcification or areas of architectural distortion identified. Stable typically benign parenchymal asymmetries. Left: No suspicious masses, groups of microcalcification or areas of architectural distortion identified. Stable typically benign parenchymal asymmetries. ??Lateral breast biopsy marker. BREAST DENSITY: B - There are scattered areas of fibroglandular density. Procedure Note Mahnaz Benton MD - 11/02/2024 A BILATERAL DIGITAL 3D SCREENING MAMMOGRAPHY HISTORY: Routine screening. Family history of breast cancer COMPARISON: Multiple priors dating back to 08/10/2020 Technique: Bilateral full field digital mammography (3D) was performedusing standard CC and MLO projections CAD was used to evaluate this mammogram. FINDINGS: Right: No suspicious masses, groups of microcalcification or areas ofarchitectural distortion identified. Stable typically benign parenchymalasymmetries. Left: No suspicious masses, groups of microcalcification or areas ofarchitectural distortion identified. Stable typically benign parenchymalasymmetries. Lateral breast biopsy marker. BREAST DENSITY: B - There are scattered areas of fibroglandular density. IMPRESSION: 1. No mammographic evidence of malignancy 2. Scattered fibroglandular tissue BI-RADS CATEGORY: 2 - BENIGN RECOMMENDATION: Screening bilateral mammogram is recommended in 1 year. Mammo Location: [facility], [address] [place] [address], [id number], . -------- FINAL REPORT -------- Dictated By: Mahnaz Benton Dictated Date: 11/02/2024 17:33 ET Assigned Physician: Mahnaz Benton Reviewed and Electronically Signed By: Mahnaz Benton Signed Date: 11/02/2024 17:36 ET Workstation ID: [id number] Transcribed By: Self Edit Transcribed Date: 11/02/2024 17:33 ET us Anjel Crandall MD IMG BI PROCEDURES Final Result * Pap smear (10/18/2022) 10/18/2022 Narrative HISTORICAL TESTING LAB RESULTING AGENCY - 10/29/2022 11:41 AM EST [id number] THINPREP PAP, IMAGED: ATYPICAL SQUAMOUS CELLS OF UNDETERMINED SIGNIFICANCE (ASCUS) . TAVON BERKOWITZ , JOS(ASCP) (CASE SCREENED 10 25 2022) KIERAN REEVES M.D. , PATHOLOGIST (CASE ELECTRONICALLY SIGNED 10 26 2022) ADEQUACY: SATISFACTORY . SOURCE: THINPREP PAP, VAGINAL, IMAGED CLINICAL INFORMATION: HYSTERECTOMY, LEEP FOR WILTON 2 WITH FOCALLY + ECTCERVICAQL MARGIN (KIRBY BURTON MD, COLPO AND EECC NEG 09/18/11, PAP 01/30/12 NORMAL PAP 07/2012 WILTON 1 BUT NEG HPV. COLPOSCOPY REPEAT 09/24/11 - BX AND ECC NORMAL. REPEAT PAP AND HPV NEG 07/2013, 2014 HYSTERECTOMY, PAP SMEAR 06/2018 LSIL HR HPV +, PAP SMEAR 07/2019 NEG HRHPV NEG, LMP 05/23/2014, [Z12.4] Vivek Fontenot DO LAB CYTOLOGY ORDERABLES Final Result HISTORICAL TESTING LAB RESULTING AGENCY from Last 3 Months or Most Recently Relevant to Health Maintenance Insurance ED [facility] Advance Directives Documents on File Type Date Recorded Patient Frame Feeder Expl anation Power of Research Manager 09/07/2024 10:37 AM Care Teams Director Speech Relationship Specialty Start Date End Date Anjel Crandall MD [address] [place] [id number] PCP - General Internal Medicine 08/14/24
[2024-12-19 12:38] LABS: IDNOW Serial# 6674DD1D; Strep A Nucleic Acid Positive (Negative)
[2024-12-19] MEDS: Ketorolac Tromethamine 30 MG/ML VIAL IM (12:39)
[2024-12-19] MEDS: dexAMETHasone sod phosphate 10 MG/ML VIAL IVPUSH (12:39)
--- NOTE | 2024-12-19 12:47 | ED.GENADULT ---
HPI - General Adult General Chief complaint: General Medical Stated complaint: swore throat feels like closing Time Seen by Provider: 12/19/24 12:17 Source: patient, RN notes reviewed and old records reviewed Mode of arrival: ambulatory History of Present Illness ED Provider: Laura Gamboa PA-C HPI narrative: 59-year-old female with no significant past medical history presenting to the ED complaining of headache and sore throat x 3 days. Reports painful swallowing and chills. Denies fever, inability to swallow, ear pain, cough, sick contacts, travel Related Data Previous Rx's ?Medication ?Instructions ?Recorded albuterol sulfate 90 mcg/actuation 2 puff inhalation Q4-6H PRN 01/11/22 aerosol inhaler (ProAir HFA) shortness of breath or wheezing #8.5 grams codeine 10 mg-guaifenesin 100 mg/5 10 ml PO Q6H PRN cough #237 mL 01/11/22 mL oral liquid levofloxacin 750 mg tablet 750 mg PO DAILY 7 days #7 tabs 01/11/22 prednisone 20 mg tablet 40 mg (2 x 20 mg) PO DAILY #10 tabs 01/11/22 ketorolac 10 mg tablet 10 mg PO TID PRN pain 5 days #15 11/13/22 tabs lidocaine 5 % topical patch 1 patch topical DAILY PRN pain #15 11/13/22 ea levofloxacin 500 mg tablet 500 mg PO DAILY 10 days #10 tabs 03/10/24 metronidazole 500 mg tablet 500 mg PO TID #30 tabs 03/10/24 ondansetron 4 mg disintegrating 4 mg PO Q8H 4 days #12 tabs 03/10/24 tablet amoxicillin 875 mg-potassium 1 tab PO TID #30 tabs 04/14/24 clavulanate 125 mg tablet pantoprazole 40 mg tablet,delayed 40 mg PO DAILY #14 tabs 09/05/24 release (Protonix) Allergies Allergy/AdvReac Type Severity Reaction Status Date / Time acetaminophen Allergy Severe RASH, Verified 12/19/24 12:08 ITCHY EYES, ? ANAPHYLAXIS Review of Systems Review of Systems: Yes all other systems are reviewed and are negative Constitutional: Constitutional: Reports as per [facility] Past Medical History Attestation statement: The following information was validated with the patient. Source: old records reviewed Social History Social History Smoked in Last 30 Days: No Use of substances other than those prescribed or required for medical reasons: No Advance Directives: No Advance Directives Information Provided: Yes Do you have a plan to hurt others: No Plan Patient : No Physical Exam ED Vital Signs: Vital Signs - 24 hr 12/19/24 12:07 Temperature 97.0 F Pulse Rate 81 Respiratory Rate 16 Blood Pressure 117/70 Pulse Oximetry 97 Oxygen Delivery Method Room Air BMI result Body Mass Index 37.2 Const General: cooperative, healthy appearing and no acute distress Orientation/consciousness: patient oriented x3 Limitations: no limitations HENMT Other: + bilateral submandibular lymphadenopathy Head: Yes normal to inspection and Yes atraumatic Ears: hearing grossly normal bilaterally, external ears normal, TM's normal bilaterally and mastoids normal General nose exam: Normal external nose present Face and sinus: Yes normal facial exam Mouth: Normal oral and palatal mucosa present Throat: Yes uvula midline, Yes abnormal tonsil (Bilateral tonsillar erythema, swelling, and exudates), No peritonsillar mass, Yes posterior oropharynx abnormal (Erythematous), No uvula laterally displaced and No uvular edema Eyes General: appearance normal, both eyes and all related structures EOM: EOMs intact bilaterally Neck Neck: Yes normal visual inspection and Yes no meningeal signs Resp Effort & Inspection: normal respiratory effort, no respiratory distress and no stridor Cardio Rate: regular rate Skin Rashes: no rashes Wounds: no wounds Neuro General: patient oriented x3, tone normal and no meningeal signs Cranial nerves: Yes CN's II-XII intact bilaterally Gait exam (Neuro): Normal gait present Extrem General: Yes normal to inspection Course Course Course Narrative: -1250--rapid strep positive > given 1st dose of p.o. Augmentin in the ED -COVID/FLU/RSV neg Results discussed with patient including worrisome signs and symptoms and strict return precautions, and when to return to the emergency department. They verbalized understanding and feel safe for discharge at this time. Medications Administered Discontinued Medications Generic Name Dose Route Start Last Admin Trade Name Freq PRN Reason Stop Dose Admin Amoxicillin/Clavulanate Potassium 875 mg 12/19/24 12:47 12/19/24 13:02 Amoxicillin/Potassium Clav 875 Mg Tablet PO 12/19/24 12:48 875 mg ONCE ONE Administration Dexamethasone Sodium Phosphate 10 mg 12/19/24 12:34 12/19/24 12:39 Dexamethasone Sod Phosphate 10 Mg/Ml Vial IVPUSH 12/19/24 12:35 10 mg ONCE ONE Administration Ketorolac Tromethamine 30 mg 12/19/24 12:34 12/19/24 12:39 Ketorolac Tromethamine 30 Mg/Ml Vial IM 12/19/24 12:35 30 mg ONCE ONE Administration Medical Decision Making Medical Decision Making MDM Narrative: 59-year-old female with no significant past medical history presenting to the ED complaining of headache and sore throat x 3 days. On exam vital signs stable, NAD, nontoxic appearing, talking in complete sentences, no respiratory distress, no stridor. No muffled voice. Bilateral tonsillar swelling, erythema and exudates appreciated with posterior oropharyngeal erythema. Submandibular lymphadenopathy noted. Concern for strep pharyngitis. Concern for viral illness. No evidence of DESIGN ENGINEERING TECHNICIAN/retropharyngeal abscess. Plan: Viral testing, rapid strep, p.o. Decadron, IM Toradol, re-evaluate Please refer to course for remaining clinical decision making, interpretation of labs/imaging results, and discussions with consultants and/or family members. Differential Diagnosis Differential Diagnoses: The differential diagnosis associated with the presentation includes As above Lab Data [facility] Lab Attestation statement: I reviewed the patient's lab results. Labs: Lab Results 12/19/24 Range/Units 12:17 Influenza Type A (PCR) NEGATIVE (Negative) Influenza Type B (PCR) NEGATIVE (Negative) RSV RNA Qual (PCR) NEGATIVE (Negative) SARS-CoV-2 RNA (RT-PCR) NEGATIVE (Negative) S. pyogenes GrpA ENE Positive A (Negative) External Record Review External record reviewed: Inpatient record, Office record, Outpatient record, Prior outpatient labs, Prior outpatient radiology, Primary care record and Outside ED record Tests considered The following testing was considered but not selected: As above Prescription Management I considered prescription management with: Pain Medication and Antibiotic Chronic Conditions Patient?s care impacted by: Other Social Determinants Patient?s care significantly limited by Social Determinants of Health including: Other Social Determinant of Health Discharge Plan Discharge Clinical Impression: Strep throat Patient Disposition: Home, Self-Care Instructions: Strep Throat (DC) Prescriptions: No Action levofloxacin 750 mg tablet 750 mg PO DAILY 7 Days Qty: 7 0RF codeine-guaifenesin 10-100 mg/5 mL liquid 10 ml PO Q6H PRN (Reason: cough) Qty: 237 0RF albuterol sulfate [ProAir HFA] 90 mcg/actuation HFA aerosol inhaler 2 puff inhalation Q4-6H PRN (Reason: shortness of breath or wheezing) Qty: 8.5 0RF prednisone 20 mg tablet 40 mg PO DAILY Qty: 10 0RF ketorolac 10 mg tablet 10 mg PO TID PRN (Reason: pain) 5 Days Qty: 15 0RF lidocaine 5 % adhesive patch,medicated 1 patch topical DAILY PRN (Reason: pain) Qty: 15 0RF Rx Instructions: leave on most painful area for up to 12 hrs levofloxacin 500 mg tablet 500 mg PO DAILY 10 Days Qty: 10 0RF metronidazole 500 mg tablet 500 mg PO TID Qty: 30 0RF ondansetron 4 mg tablet,disintegrating 4 mg PO Q8H 4 Days Qty: 12 0RF amoxicillin-pot clavulanate 875-125 mg tablet 1 tab PO TID Qty: 30 0RF pantoprazole [Protonix] 40 mg tablet,delayed release (DR/EC) 40 mg PO DAILY Qty: 14 0RF Referrals: Anjel Crandall III, MD [Primary Care Provider] - 5 days Print Language: Yoruba
[2024-12-19 12:58] LABS: Influenza A PCR NEGATIVE (Negative); Influenza B PCR NEGATIVE (Negative); Resp Syncy Virus RNA Qual PCR NEGATIVE (Negative); SARS COV2 PCR INHOUSE NEGATIVE (Negative)
[2024-12-19] MEDS: Amoxicillin/Potassium Clav 875 MG TABLET PO (13:02)
[2024-12-19 13:19] VITALS: BP 124/69; PULSE 72; RESP 16; TEMP 36.1; O2SAT 97
== END 2024-12-19 13:20 | disposition home or self-care (01) ==
PROVIDERS: Emergency Provider Emergency Medicine; PCP Internal Medicine
DX: J02.0 Streptococcal pharyngitis (principal); R51.9 Headache, unspecified; Z03.818 Encounter for observation for suspected exposure to other biological agents ruled out
CPT/HCPCS: 0241U; 87651; 96372; 99284; J1100; J1885

== ENCOUNTER 2025-04-22 11:47 | Outpatient (AMB) | payer OTHER, SELFPAY ==
--- NOTE | 2025-04-22 11:51 | AM.OFFWIN_ITS ---
Intake Vital Signs 3 04/22/25 11:57 Height 4 ft 11 in Weight 189 lb BMI 38.2 BP 118/80 Blood Pressure Location Lt brachial Position Sitting Respiration 16 Pulse 68 Pulse Source Pulse Oximeter Temp 98.6 F Temp Source Oral Pulse Oximetry (%) 99 Oxygen Delivery Method Room Air Oxygen Flow Rate 98.6 Intake Visit Reasons: EP-rt breast pain & burning, cough, itchy throat Intake Note: R breast pain, lump on side since Saturday. Right arm pain. Runny nose and itchy throat since yesterday Allergies acetaminophen Allergy (Severe, Verified 04/22/25 11:52) RASH, ITCHY EYES, ? ANAPHYLAXIS Do you need a note to return to daycare/school/sports/work: No HPI HPI Comments 2 History of Present Illness0 Details 59 y/o Female patient who presents to [facility] walk in clinic with c/o Right breast pain with lump on side since Saturday. No h/o Breast CA. Last Mammogram was in with normal results. She is Pt of [facility] - PCP (Dr. Crandall). PCP's Office could not accomodate her today. She was informed to go to the [facility] location in [place] that has Walk in clinic but it was too far location. She does not drive, depends on family members. [facility] Medical History (Updated 04/22/25 @ 12:20 by Enriqueta Spears NP) Breast pain, right Review of Systems Const All systems reviewed & are unremarkable except as noted in HPI and below Physical Exam Vital Signs: Last Vital Signs Temp 98.6 F 04/22/25 11:57 Pulse 68 04/22/25 11:57 Resp 16 04/22/25 11:57 BP 118/80 04/22/25 11:57 Pulse Ox 99 04/22/25 11:57 Oxygen Delivery Method Room Air 04/22/25 11:57 Oxygen Flow Rate 98.6 04/22/25 11:57 BMI result Body Mass Index 38.2 Const General: no acute distress Nutritional Appearance: obese Orientation/consciousness: patient oriented x3 Chest Chest palpation & inspection: no masses and tenderness costochondral junction Breast/axilla inspection: normal inspection of the breasts Breast/axilla palpation: no axillary lymphadenopathy Chest/axillae images: 2 1. TTP, no masses/Lumps Palpated. No lymphadenopathy. Neuro General: patient oriented x3, gait normal and moves all extremities Psych Speech and movement: Normal speech and movement present Assessment & Plan Assessment & Plan (1) Breast pain, right: Code(s): N64.4 - Mastodynia Plan: Advised Pt to call her PCP for an urgent U/S of Breast. Because she is not C patient. Informed Patient that [facility] has a walk [facility] [place]. Meanwhile advised to take Acetaminophen for pain relief. Medications: Discontinued 2 codeine-guaifenesin 10-100 mg/5 mL Discontinued Reason: Patient Completed Course 10 mL PO Q6H PRN 237 mL 0RF cough prednisone Discontinued Reason: Patient Completed Course 40 mg (2 x 20 mg) PO DAILY 10 tabs 0RF lidocaine 5% leave on most painful area for up to 12 hrs Discontinued Reason: Patient Completed Course 1 patch topical DAILY PRN 15 ea 0RF pain ondansetron Discontinued Reason: Patient Completed Course 4 mg PO Q8H 4 days 12 tabs 0RF amoxicillin-pot clavulanate 875-125 mg Discontinued Reason: Patient Completed Course 1 tab PO TID 30 tabs 0RF amoxicillin-pot clavulanate 875-125 mg Discontinued Reason: Patient Completed Course 1 tab PO BID 7 days 14 tabs 0RF Coding Level of Care Code Est Pt Level 4 (92945) Diagnoses Breast pain, right N64.4 Time Spent (min) 20
[2025-04-22 11:57] VITALS: BP 118/80; PULSE 68; RESP 16; TEMP 37; O2SAT 99; BMI 38.2
== END 2025-04-22 12:27 | disposition home or self-care (01) ==
PROVIDERS: PCP Internal Medicine; Visit Provider Nurse Practitioner Family
DX: N64.4 Mastodynia (principal)

== ENCOUNTER 2025-05-21 09:00 | Emergency (ER) | payer OTHER, SELFPAY ==
--- NOTE | ~2025-05-21 | US_ITS ---
EXAMINATION: US LOWER EXTREMITY VEINS LIMITED FOLLOW UP RIGHT HISTORY: pain COMPARISON: Comparison is made with the prior examination dated 11/13/2022. TECHNIQUE: Duplex and color Doppler sonographic examination of the deep venous system of the right lower extremity was performed. FINDINGS: The common femoral, superficial femoral, and popliteal veins are patent demonstrating normal compressibility, spontaneous flow, and augmentation. There is a normal color and spectral Doppler waveform appearance of the visualized deep venous system above the knee. The posterior tibial and peroneal veins are patent. There is a patent venous varicosity at the medial aspect of the corresponding to the patient's pain. US/US venous duplex LE RT IMPRESSION: No evidence of acute DVT in the right lower extremity. Electronically signed by: Damien Layne MD 05/21/2025 11:05 AM EDT
[2025-05-21 09:31] VITALS: BP 151/76; PULSE 62; RESP 16; TEMP 36.4; O2SAT 99; BMI 37.4
--- NOTE | 2025-05-21 09:33 | ED.GENADULT ---
HPI - General Adult General Chief complaint: Extremity Problem Stated complaint: R Lower Leg Pain ?DVT Time Seen by Provider: 05/21/25 09:42 Source: patient, old records reviewed and spanish interpreter/translator (she declined) Mode of arrival: ambulatory Limitations: no limitations History of Present Illness ED Provider: KEITH AMANDA narrative: 59 yo female with PMH of GERD, asthma, prior abdominal surgery back in 2019 that resulted in PE she was on coumadin for about 9 months. She was just treated with amoxicillin on Saturday by her doctor for dental infection this is improving greatly. She notes on Saturday she started with R calf pain and swelling. She denies recent travel or procedures. She has no rash or fevers. She denies CP/SOB. She denies trauma to that leg. She does have varicose veins. MD complaint: RLE swelling Onset (ago): day(s) (started Saturday) Location: right and lower extremity Radiation: non-radiation Severity: mild Quality: aching Pain Consistency: constant Relieving factors: none Exacerbating factors: movement Associated symptoms: denies other symptoms Treatments prior to arrival: none Related Data Previous Rx's ?Medication ?Instructions ?Recorded albuterol sulfate 90 mcg/actuation 2 puff inhalation Q4-6H PRN 01/11/22 aerosol inhaler (ProAir HFA) shortness of breath or wheezing #8.5 grams levofloxacin 750 mg tablet 750 mg PO DAILY 7 days #7 tabs 01/11/22 ketorolac 10 mg tablet 10 mg PO TID PRN pain 5 days #15 11/13/22 tabs levofloxacin 500 mg tablet 500 mg PO DAILY 10 days #10 tabs 03/10/24 metronidazole 500 mg tablet 500 mg PO TID #30 tabs 03/10/24 pantoprazole 40 mg tablet,delayed 40 mg PO DAILY #14 tabs 09/05/24 release (Protonix) Allergies Allergy/AdvReac Type Severity Reaction Status Date / Time acetaminophen Allergy Severe RASH, Verified 05/21/25 09:35 ITCHY EYES, ? ANAPHYLAXIS Review of Systems Review of Systems: Constitutional : No Fever, No Chills ENT/Mouth : No Ear Pain, No Hoarseness, No sore throat Eyes: No Eye Pain, No Swelling, No Redness, No Foreign Body Cardiovascular : No Chest Pain, No SOB Respiratory : No Cough, No Dyspnea Gastrointestinal : No Nausea, No Vomiting, No Diarrhea, No abdominal Pain Genitourinary : No Dysuria, No Hematuria Musculoskeletal : positive leg pain, No Myalgias Skin : No Skin lacerations, No rash Neuro : No Weakness, No Numbness All other systems reviewed and are negative FOR[facility]LY [facility], [facility] Past Medical History Attestation statement: The following information was validated with the patient. Source: old records reviewed Medical History (Updated 05/21/25 @ 11:11 by Suzy Ramirez DO) Pulmonary embolus Breast pain, right Social History Social History (Updated 05/21/25 @ 10:27 by Suzy Ramirez DO) Patient Tobacco Use Status: Never used Tobacco Advance Directives: No Advance Directives Information Provided: Yes Physical Exam ED Vital Signs: Vital Signs - 24 hr 05/21/25 09:31 Temperature 97.6 F Pulse Rate 62 Respiratory Rate 16 Blood Pressure 151/76 Pulse Oximetry 99 Oxygen Delivery Method Room Air BMI result Body Mass Index 37.4 Appearance: Alert. Oriented X3. No acute distress. Eyes: Pupils equal, round and reactive to light. ENT: Pharynx normal. Neck: Normal inspection. Neck supple. CVS: Normal heart rate and rhythm. Pulses normal. Respiratory: No respiratory distress. Breath sounds normal. Abdomen: Soft and nontender. Skin: Skin warm and dry. Normal skin color. Normal skin turgor. Extremities: right lower ext > left lower ext - distal pulses intact, + varicose veins but they are not inflammed, compartments soft and compressible Neuro: Oriented X 3. No motor deficit. No sensory deficit. CN2-12 intact Course Course Course Narrative: RME, this is a rapid medical exam performed by Heriberto Dixon please refer to primary provider for complete H&P- 59-year-old female presents for evaluation of right calf pain and swelling. She has a history of DVT in his not currently anticoagulated. Plan for ultrasound of the right lower extremity. Medical Decision Making Medical Decision Making [facility] Narrative: 59 yo female with PMH of GERD, asthma, prior abdominal surgery back in 2019 that resulted in PE now here with RLE swellig and calf pain since Saturday - no preceding events and no trauma. She is NV intact, no signs of infection. No CP/SOB to suggest PE. DVT study ordered. Differential Diagnosis Differential Diagnoses: The differential diagnosis associated with the presentation includes thrombophlebitis, bakers cyst, DVT Admission/Observation Consideration of admission/observation: Escalation of care including admission/observation considered neg US stable for DC Independent Interpretation I performed an independent interpretation of an: Ultrasound (no DVT) Radiology Impression Discussion of test interpretation with radiology: I have reviewed the radiologist's reading. External Record Review External record reviewed: Outpatient record Prescription Management I considered prescription management with: Other Discharge Plan Discharge Clinical Impression: Varicose veins of both lower extremities Qualifiers: Varicose vein complication: pain Qualified Code(s): I83.813 - Varicose veins of bilateral lower extremities with pain Patient Disposition: Home, Self-Care Instructions: Venous Insufficiency (DC) Additional Instructions: your initial ultrasound was normal please monitor for increased redness or pain repeat ultrasound in 5 days if not better return for any worsening symptoms or concerns such as redness, swelling, chest pain, trouble breathing or any other concerns Prescriptions: No Action levofloxacin 750 mg tablet 750 mg PO DAILY 7 Days Qty: 7 0RF albuterol sulfate [ProAir HFA] 90 mcg/actuation HFA aerosol inhaler 2 puff inhalation Q4-6H PRN (Reason: shortness of breath or wheezing) Qty: 8.5 0RF ketorolac 10 mg tablet 10 mg PO TID PRN (Reason: pain) 5 Days Qty: 15 0RF levofloxacin 500 mg tablet 500 mg PO DAILY 10 Days Qty: 10 0RF metronidazole 500 mg tablet 500 mg PO TID Qty: 30 0RF pantoprazole [Protonix] 40 mg tablet,delayed release (DR/EC) 40 mg PO DAILY Qty: 14 0RF Print Language: Bangladeshi
--- NOTE | 2025-05-21 09:50 | PC.NURSE ---
Pt c/o pain since Saturday right leg medial to knee and radiating down. Provider in to [place]- I see no appreciable redness or swelling- US ordered. Pt with Hx DVT No other sx
--- OUTSIDE RECORDS SUMMARY | 2025-05-21 10:33 | XMS_ITS | Clinical Summary ---
Author Organization [address] [facility] Address [address] [place] [address] Phone Care Team Providers Care Graining Operator Name Role Phone Anjel Crandall MD Primary Care Provider [phone] Allergies Active Allergy Reactions Criticality Noted Date Comments Acetaminophen Itching 01/19/2010 Medications No known medications Active Problems Problem Noted Date Diagnosed Date Microscopic hematuria 06/16/2024 Overview (06/16/2024): uro at [place] Depression with anxiety 06/16/2024 History of pulmonary [...] Encounters Date Type Department Care Team Description 05/05/2025 3:30 PM EDT Office Visit Adult Medicine [address] [phone] Anju Vernon PA Pain of right breast (Primary Dx) 04/23/2025 Telephone Adult Medicine [address] [phone] Anjel Crandall MD 04/22/2025 Nurse Triage Adult Medicine [address] [phone] Anjel Crandall MD 04/21/2025 3:00 PM EDT Consult Vascular Surgery [place] [address] [place] [address] Phyllis Ellis MD Varicose veins of both lower extremities with pain from Last 3 Months Immunizations Name Administration [...] CERVICAL BIOPSY W/ LOOP ELECTRODE EXCISION PROCEDURE: MO CONIZATION CERVIX W/WO D&C RPR ELTRD EXC; COMMENT: Patient see Dr Burton at [place], [place] 2 with + exocerv margin (focal) OTHER SURGICAL HISTORY 10/27/14 PROCEDURE: HISTORICAL TOTAL HYSTERECTOMY W/O BSO; COMMENT: fibroids COLONOSCOPY 01/13/2016 PROCEDURE: HISTORICAL COLONOSCOPY; COMMENT: tics; repeat in 10 yrs COLONOSCOPY 03/30/2019 PROCEDURE: HISTORICAL COLONOSCOPY; COMMENT: diverticulosis; otherwise negative. OTHER SURGICAL HISTORY 02/23/2020 Left PROCEDURE: MO LAPS COLECTOMY PRTL W/END CLST & CLSR DSTL SGM HERNIA REPAIR 10/2020 PROCEDURE: REPAIR UMBILICAL HERNIA HERNIA REPAIR 10/25/2020 PROCEDURE: MO REPAIR FIRST ABDOMINAL WALL HERNIA; COMMENT: laparoscopic supraumbilical midline incisional hernia repair with mesh - Dr. Avelino De Leon BREAST BIOPSY 2013 Left PROCEDURE: BX BREAST; PERC NEEDLE CORE W/IMAG GUID; COMMENT: lt. breast bx.benign Medical History Medical History Date Comments Microscopic hematuria DX:Microsc opic hematuria; COMMENT: uro at [place] Hepatitis B carrier (CMS/HCC V24, CMS/HCC V28) [...] Sign Reading Time Taken Comments Blood Pressure 104/62 05/05/2025 3:06 PM EDT Pulse 67 05/05/2025 3:06 PM EDT Temperature 36.2 C (97.2 F) 05/05/2025 3:06 PM EDT Respiratory Rate 16 05/05/2025 3:06 PM EDT Oxygen Saturation 97% 05/05/2025 3:06 PM EDT Inhaled Oxygen Concentration - - Weight 89.8 kg (198 lb) 05/05/2025 3:06 PM EDT Height 149.9 cm (4' 11 ) 05/05/2025 3:06 PM EDT Body Mass Index 39.99 05/05/2025 3:06 PM EDT Plan of Treatment Upcoming Encounters Date Type Department Care Team (Late st Contact Info) Description 05/31/2025 3:00 PM EDT Appointment Radiology Department - [address] [phone] 05/31/2025 3:20 PM EDT Appointment Radiology Department - [address] [phone] 11/01/2025 1:20 PM EST Appointment Radiology [address] [phone] 11/03/2025 9:00 AM EST Office Visit Adult Medicine [address] [phone] Anjel Crandall MD [address] [place] [address] Health Maintenance Due Date Last Done Comments Pneumococcal Vaccine: 50+ Years (1 of 1 - PCV) 2013 Zoster Vaccines (2 of 2) 11/02/2020 09/07/2020 Hepatitis C Screening 08/11/2022 Social Influencers of Health Screening 08/11/2022 RSV Immunization Adult Patients (1 - Risk 60-74 years 1-dose series) 2023 Depression Screening 09/02/2024 COVID-19 Vaccine (3 - season) 2025 01/06/2021, 12/09/2020 Influenza Vaccine (#1) 2025 2, 09/14/2021, 09/07/2020, Additional history exists Cervical Cancer [...] is recommended in 1 year. Mammo Location: [facility], [address] [place] [address], [phone], . -------- FINAL REPORT -------- Dictated By: Mahnaz Benton Dictated Date: 11/02/2024 17:33 ET Assigned Physician: Mahnaz Benton Reviewed and Electronically Signed By: Mahnaz Benton Signed Date: 11/02/2024 17:36 ET Workstation ID: [id number] Transcribed By: Self Edit Transcribed Date: 11/02/2024 17:33 ET Narrative 11/02/2024 5:36 PM EST A BILATERAL DIGITAL 3D SCREENING MAMMOGRAPHY HISTORY: Routine screening. Family history of breast cancer COMPARISON: Multiple priors dating back to 08/10/2020 Technique: Bilateral full field digital mammography (3D) was performed using standard CC and MLO projections CAD was used to evaluate this mammogram. FINDINGS: Right: No suspicious masses, groups of microcalcification or areas of architectural distortion identified. Stable typically benign parenchymal asymmetries. Left: No suspicious masses, groups of microcalcification or areas of architectural distortion identified. Stable typically benign parenchymal asymmetries. Lateral breast biopsy marker. BREAST DENSITY: B [...] is recommended in 1 year. Mammo Location: [facility], [address] [place] [address], [phone], . -------- FINAL REPORT -------- Dictated By: Mahnaz Benton Dictated Date: 11/02/2024 17:33 ET Assigned Physician: Mahnaz Benton Reviewed and Electronically Signed By: Mahnaz Benton Signed Date: 11/02/2024 17:36 ET Workstation ID: [id number] Transcribed By: Self Edit Transcribed Date: 11/02/2024 17:33 ET Anjel Crandall MD IMG BI PROCEDURES Final Result * Pap smear (10/18/2022) 10/18/2022 Narrative HISTORICAL TESTING LAB RESULTING AGENCY - 10/29/2022 11:41 AM EST [id number] THINPREP PAP, IMAGED: ATYPICAL SQUAMOUS CELLS OF UNDETERMINED SIGNIFICANCE (ASCUS) . TAVON BERKOWITZ , CT(ASCP) (CASE SCREENED 10 25 2022) KIERAN REEVES [...] 07/2019 NEG HRHPV NEG, LMP 05/23/2014, [Z12.4] us Vivek Fontenot DO LAB CYTOLOGY ORDERABLES Final Result HISTORICAL TESTING LAB RESULTING AGENCY from Last 3 Months or Most Recently Relevant to Health Maintenance Insurance [facility] Advance Directives Documents on File Type Date Recorded Patient Cycle Director Expl anation Power of Case Management Rn 09/07/2024 10:37 AM Care Teams Graining Operator Relationship Specialty Start Date End Date Anjel Crandall MD [address] [place] [phone] PCP - General Internal Medicine 08/14/24
[2025-05-21 11:12] VITALS: BP 151/76; PULSE 62; RESP 16; TEMP 36.4; O2SAT 99
== END 2025-05-21 11:24 | disposition home or self-care (01) ==
PROVIDERS: Emergency Provider Emergency Medicine; PCP Internal Medicine
DX: I83.813 Varicose veins of bilateral lower extremities with pain (principal); M79.661 Pain in right lower leg; R60.0 Localized edema; Z79.899 Other long term (current) drug therapy
CPT/HCPCS: 93971; 99283; 99284

== ENCOUNTER → 2025-05-21 09:33 | Outpatient (BNV) | payer OTHER, SELFPAY | PROVIDERS: Emergency Provider Emergency Medicine; PCP Internal Medicine; Visit Provider Radiology Diagnostic Radiology | DX: M79.661 Pain in right lower leg (principal) | CPT/HCPCS: 93971 ==

== ENCOUNTER 2025-06-29 14:47 | Emergency (ER) | payer OTHER, SELFPAY ==
--- NOTE | ~2025-06-29 | XR_ITS ---
EXAMINATION: X-ray right shoulder X-ray right forearm CLINICAL INFORMATION: Pain, evaluate fracture COMPARISON: None TECHNIQUE: Shoulder 4 views. Forearm 2 views. FINDINGS: Shoulder: Mild-moderate acromioclavicular arthritis. Glenohumeral joint space is maintained. 3 mm calcification/ossification adjacent to the inferior glenoid, only visualized on one view. This could represent sequela of age-indeterminate fracture, loose body. No suspicious bony lesion. No abnormal soft tissue calcification. Forearm: No evidence of acute fracture, malalignment or suspicious bony lesion. Elbow and wrist joint articulation is maintained. No significant elbow joint effusion. No abnormal soft tissue calcification. No radiopaque foreign body., XR/XR shoulder RT min 2V IMPRESSION: Shoulder: * 3 mm calcification/ossification adjacent and inferior glenoid, could represent an age-indeterminate fracture, or loose body. * Mild-moderate acromioclavicular arthritis. * Additional/follow-up imaging as clinically indicated. Forearm: 1. No acute findings Electronically signed by: Juan Luis Jimenez MD 06/29/2025 04:27 PM EDT
--- NOTE | ~2025-06-29 | XR_ITS ---
EXAMINATION: X-ray right shoulder X-ray right forearm CLINICAL INFORMATION: Pain, evaluate fracture COMPARISON: None TECHNIQUE: Shoulder 4 views. Forearm 2 views. FINDINGS: Shoulder: Mild-moderate acromioclavicular arthritis. Glenohumeral joint space is maintained. 3 mm calcification/ossification adjacent to the inferior glenoid, only visualized on one view. This could represent sequela of age-indeterminate fracture, loose body. No suspicious bony lesion. No abnormal soft tissue calcification. Forearm: No evidence of acute fracture, malalignment or suspicious bony lesion. Elbow and wrist joint articulation is maintained. No significant elbow joint effusion. No abnormal soft tissue calcification. No radiopaque foreign body., XR/XR forearm RT 2V IMPRESSION: Shoulder: * 3 mm calcification/ossification adjacent and inferior glenoid, could represent an age-indeterminate fracture, or loose body. * Mild-moderate acromioclavicular arthritis. * Additional/follow-up imaging as clinically indicated. Forearm: 1. No acute findings Electronically signed by: Juan Luis Jimenez MD 06/29/2025 04:27 PM EDT
--- NOTE | ~2025-06-29 | US_ITS ---
EXAMINATION: US TRIPLEX UPPER EXTREMITY, RIGHT CLINICAL INFORMATION: Pain COMPARISON: None available. TECHNIQUE: Color-flow triplex imaging with spectral analysis and compression Doppler was performed on the right upper extremity. FINDINGS: The right internal jugular, subclavian, and axillary veins are patent and free of thrombus. The imaged segment of the right brachiocephalic vein is patent. Spectral doppler waveforms are normal. The brachial, basilic, cephalic, radial, and ulnar veins are patent and compressible. US/US venous duplex UE RT IMPRESSION: No evidence of deep venous thrombosis involving the right upper extremity. Electronically signed by: Griselda Leo MD 06/29/2025 04:35 PM EDT
[2025-06-29 15:03] VITALS: BP 137/74; PULSE 71; RESP 18; TEMP 36.9; O2SAT 98; BMI 40.4
--- NOTE | 2025-06-29 15:20 | ED_ITS ---
HPI - General Adult General Chief complaint: Extremity Problem Stated complaint: arm pain 1 month Time Seen by Provider: 06/29/25 18:15 Source: patient Mode of arrival: ambulatory Limitations: no limitations History of Present Illness ED Provider: Torin Delaney HPI narrative: 59 yold female presents to the ED right forearm for the past 4 weeks without any trauma. Patient denies any swelling, redness, bluish/black discoloration, fever, chills, paralysis, facial droop, dizziness, nuasea, headache, slurred speech, pus discharge, or foul odor. 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 Related Data Previous Rx's ?Medication ?Instructions ?Recorded albuterol sulfate 90 mcg/actuation 2 puff inhalation Q 4-6H PRN 01/11/22 aerosol inhaler (ProAir HFA) shortness of breath or wh eezing #8.5 grams levofloxacin 750 mg tablet 750 mg PO DAILY 7 days #7 t abs 01/11/22 ketorolac 10 mg tablet 10 mg PO TID PRN pain 5 days #15 11/13/22 tabs levofloxacin 500 mg tablet 500 mg PO DAILY 10 days #10 tabs 03/10/24 metronidazole 500 mg tablet 500 mg PO TID #30 tabs 05/26 pantoprazole 40 mg tablet,delayed 40 mg PO DAILY #14 t abs 09/05/24 release (Protonix) cyclobenzaprine 5 mg tablet 5 mg PO BID PRN muscle spa sm #14 05/21/25 tabs naproxen 500 mg tablet 500 mg PO BID PRN pain #14 t abs 06/29/25 prednisone 20 mg tablet 40 mg (2 x 20 mg) PO DAILY 5 days 06/29/25 #10 tabs Allergies Allergy/AdvReac Type Severity Reaction Status Date / Time acetaminophen Allergy Severe RASH, Verified 06/29/25 15:06 ITCHY EYES, ? ANAPHYLAXIS Review of Systems 2 Review of Systems: right forearm Yes all other systems are reviewed and are negative PMFSH Past Medical History Medical History (Updated 06/30/25 @ 00:00 by Siddhartha Nair) Pulmonary embolus Breast pain, right Social History Social History (Updated 05/21/25 @ 10:27 by Suzy Ramirez DO) Patient Tobacco Use Status: Never used Tobacco Advance Directives: No Advance Directives Information Provided: No Physical Exam ED Vital Signs: Vital Signs - 24 hr 06/29/25 15:03 Temperature 98.5 F Pulse Rate 71 Respiratory Rate 18 Blood Pressure 137/74 Pulse Oximetry 98 Oxygen Delivery Method Room Air BMI result Body Mass Index 40.4 Const General: cooperative, healthy appearing, comfortable, no acute distress, well developed, alert, awake and Physically active Orientation/consciousness: patient oriented x3 HENMT Head: Yes normal to inspection, Yes No palpable skull fracture present, Yes normocephalic and Yes atraumatic Eyes General: appearance normal, both eyes and all related structures Neck Neck: Yes normal visual inspection, Yes full ROM, Yes no lymphadenopathy, Yes no meningeal signs, Yes trachea midline, Yes supple, No anterior neck swelling and No tender Chest Chest palpation & inspection: normal inspection of the chest and normal palpation of entire chest wall Resp Effort & Inspection: normal respiratory effort and able to speak in complete sentences Auscultation: clear to auscultation bilaterally Cardio Jugular venous distension: no JVD Heart sounds: S1 normal heart sound present and S2 normal heart sound present GI Inspection: Yes normal to inspection Palpation (GI): Soft to palpation, not firm, nontender, no guarding and not rigid General: Yes no CVA tenderness Back/Spine/Pelvis Back: no CVA tenderness and No back tenderness Skin General skin exam: no rashes or lesions noted, elasticity normal and turgor normal Neuro General: patient oriented x3, gait normal, tone normal, moves all extremities, Normal light touch and pain sensation, no meningeal signs, no focal motor deficits, CN's II-XI intact bilaterally and normal sensation to monofilament Extrem General: Yes normal to inspection, Yes full ROM and Yes capillary refill normal Elbow/forearm/wrist images: 2 1. positive for tenderness on palpation. positive for pain on range of motion. negative for swelling, erythema, ecchymosis, stiffness, mass, hotness, coldness, or deformities. rest of extremity is normal. Motor, neuro, and vascular exam is intact. Psych Appearance: grossly normal, well kempt and not disheveled Course Course Course Narrative: RME: 59 yold female presents to the ED For right arm pain for weeks without fredo trauma. patient denies any weakness, redness or swelling. patient has appointment with vascular appointment. US xray ordered Medical Decision Making Medical Decision Making MDM Narrative: 59 yold female presents to the ED for right forearm/elbow medial pain for 4 weeks without any trauma. Xrays of foreaarm negative for fractures. Shoulder xray shows artrhitis and and old fracture. Ultrasound negative for DVT. Possible carpal tunnel versus tenderness elbow. Patient informed to follow up with Orthopedic surgery. Patient explained worrisome signs. Not susecpting septic joint, DVT, osteomyelitits, lymphangitis, gout, or any other life threatening etiology. Differential Diagnosis Differential Diagnoses: The differential diagnosis associated with the presentation includes (fracture, dilocation, sprain) Admission/Observation Consideration of admission/observation: Escalation of care including admission/observation considered Independent Interpretation I performed an independent interpretation of an: Plain X-Ray and Ultrasound Radiology Impression Discussion of test interpretation with radiology: I have reviewed the radiologist's reading. Independent Historian Clinical information obtained from an independent historian. History obtained from or confirmed by: Other (patient) Prescription Management I considered prescription management with: Pain Medication Discharge Plan Discharge Clinical Impression: Arm pain, Elbow tendinitis Patient Disposition: Home, Self-Care Instructions: Tennis Elbow (ED), Osteoarthritis (ED), Arm Pain (ED) Additional Instructions: You will need follow up with primary care provider and orthopedic surgeon may need MRI check your elbow for tendinitis. Return to the ED immediately for any swelling of upper extremity, redness, stiffness, bluish black discoloration, fever, chills, or any other concerning symptoms. Ordering Physician: Torin Delaney Date of Service: 06/29/25 Procedure(s): XR shoulder RT min 2V Accession Number(s): [id number] cc: Torin Delaney; Anjel Crnadall III, MD~ Reason for Exam: pain. fracture/ EXAMINATION: X-ray right shoulder X-ray right forearm CLINICAL INFORMATION: Pain, evaluate fracture COMPARISON: None TECHNIQUE: Shoulder 4 views. Forearm 2 views. FINDINGS: Shoulder: Mild-moderate acromioclavicular arthritis. Glenohumeral joint space is maintained. 3 mm calcification/ossification adjacent to the inferior glenoid, only visualized on one view. This could represent sequela of age-indeterminate fracture, loose body. No suspicious bony lesion. No abnormal soft tissue calcification. Forearm: No evidence of acute fracture, malalignment or suspicious bony lesion. Elbow and wrist joint articulation is maintained. No significant elbow joint effusion. No abnormal soft tissue calcification. No radiopaque foreign body., XR/XR shoulder RT min 2V IMPRESSION: Shoulder: * 3 mm calcification/ossification adjacent and inferior glenoid, could represent an age-indeterminate fracture, or loose body. * Mild-moderate acromioclavicular arthritis. * Additional/follow-up imaging as clinically indicated. Forearm: 1. No acute findings Ordering Physician: Torin Delaney Date of Service: 06/29/25 Procedure(s): US venous duplex UE RT Accession Number(s): [id number] cc: Torin Delaney; Anjel Crandall III, MD~ Reason for Exam: Right arm pain. DVT? EXAMINATION: US TRIPLEX UPPER EXTREMITY, RIGHT CLINICAL INFORMATION: Pain COMPARISON: None available. TECHNIQUE: Color-flow triplex imaging with spectral analysis and compression Doppler was performed on the right upper extremity. FINDINGS: The right internal jugular, subclavian, and axillary veins are patent and free of thrombus. The imaged segment of the right brachiocephalic vein is patent. Spectral doppler waveforms are normal. The brachial, basilic, cephalic, radial, and ulnar veins are patent and compressible. US/US venous duplex UE RT IMPRESSION: No evidence of deep venous thrombosis involving the right upper extremity. Electronically signed by: Griselda Leo MD 06/29/2025 04:35 PM EDT RP Prescriptions: New prednisone 20 mg tablet 40 mg PO DAILY 5 Days Qty: 10 0RF naproxen 500 mg tablet 500 mg PO BID PRN (Reason: pain) Qty: 14 0RF No Action levofloxacin 750 mg tablet 750 mg PO DAILY 7 Days Qty: 7 0RF albuterol sulfate [ProAir HFA] 90 mcg/actuation HFA aerosol inhaler 2 puff inhalation Q4-6H PRN (Reason: shortness of breath or wheezing) Qty: 8.5 0RF ketorolac 10 mg tablet 10 mg PO TID PRN (Reason: pain) 5 Days Qty: 15 0RF levofloxacin 500 mg tablet 500 mg PO DAILY 10 Days Qty: 10 0RF metronidazole 500 mg tablet 500 mg PO TID Qty: 30 0RF pantoprazole [Protonix] 40 mg tablet,delayed release (DR/EC) 40 mg PO DAILY Qty: 14 0RF cyclobenzaprine 5 mg tablet 5 mg PO BID PRN (Reason: muscle spasm) Qty: 14 0RF Referrals: [facility] – [place] [facility] [Provider Group, Orthopedics] - 3 days Referral Note: Arm elbow pain. May need MRI Clinical Impression: Arm pain; Elbow tendinitis Anjel Crandall III, MD [Primary Care Provider, Medical] - 3 days Referral Note: Arm pain elbow pain. May need MRI Clinical Impression: Arm pain; Elbow tendinitis Stand Alone Forms: Work/School Release Discharge Date/Time: 06/29/25 18:41 Print Language: Marshallese
--- OUTSIDE RECORDS SUMMARY | 2025-06-29 20:17 | XMS_ITS | Encounter Summary ---
Author Organization [facility] Address [address] [place] [address] Care Team Providers Care Water Ski Assembler Name Role Phone Anjel Crandall MD Primary Care Provider [phone] Encounter Details Date Type Department Care Team ([facility] Contact Info) Description 06/01/2025 Results Follow-Up Adult Medicine [address] [phone] Gloria Camejo MA Social History Tobacco Use Types Packs/Day Years Used Date Smoking Tobacco: Never Smokeless Tobacco: Never Alcohol Use Standard Drinks/Week Comments Yes 0 (1 standard drink = 0.6 oz pur e alcohol) Comments No Sex and Gender Information Value Date Recorded Sex Assigned at Not on file Legal Sex Female 4:38 AM EST Gender Identity Not on file Sexual Orientation Not on file documented as of this encounter Plan of Treatment Upcoming Encounters Date Type Department Care Team ([facility] Contact Info) Description 11/01/2025 1:20 PM EST Appointment Radiology Department - [address] [phone] 11/03/2025 9:00 AM EST Office Visit Adult Medicine [address] [phone] Anjel Crandall MD [address] [place] [address] documented as of this encounter Visit Diagnoses Not on filedocumented in this encounter Care Teams Water Ski Assembler Relationship Specialty Start Date End Date Anjel Crandall MD [address] [place] [phone] PCP - General Internal Medicine 08/14/24 documented as of this encounter
--- OUTSIDE RECORDS SUMMARY | 2025-06-29 20:17 | XMS_ITS | Clinical Summary ---
Author Organization [facility] Address [address] [place] [address] Phone Care Team Providers Care Accounting Manager Name Role Phone Anjel Crandall MD Primary Care Provider [phone] Allergies Active Allergy Reactions Criticality Noted Date Comments Acetaminophen Itching 01/19/2010 Medications amoxicillin (AMOXIL) 875 mg tablet TAKE 1 TABLET BY MOUTH TWICE DAILY UNTIL ALL TAKEN 05/17/2025 Active cyclobenzaprine (FLEXERIL) 5 mg tablet Take 1 tablet (5 mg total) by mouth 2 (two) times a day if needed for muscle spasms. 05/21/2025 Active ibuprofen (ADVIL,MOTRIN) 800 mg tablet Take 1 tablet (800 mg total) by mouth every 8 (eight) hours if needed for moderate pain. 30 tablet 1 05/26/2025 Active Active Problems Problem Noted Date Diagnosed Date Microscopic hematuria 06/16/2024 Overview (06/16/2024): [facility]ro [facility] Depression with anxiety 06/16/2024 History of pulmonary [...] 10/17/2020 [facility] (06/16/2024[facility] Reccomendations as of 08/21/2020 Not visually signficant, observe. Lumbar radiculitis 06/30/2020 Varicose veins of legs 02/28/2018 Chronic pain of right knee 02/28/2018 Chronic back pain 09/06/2017 Superficial thrombophlebitis 11/02/2015 Overview (06/16/2024): In 2012 Papanicolaou smear of cervix with low grade squamous intraepithelial lesion (LGSIL) 09/18/2011 Overview (06/16/2024): Previous LEEP for WILTON 2 with focally + ectocervical margin (Leighann Orr MD) Colpo & ECC neg 09/18/11. Pap [...] Encounters Date Type Department Care Team Description 06/22/2025 Telephone Vascular Surgery - [place] [address] [place] [phone] Ky Alford MD 06/01/2025 Results Follow-Up Adult Medicine [address] [phone] Camejo GloriaRANDI 05/31/2025 2:48 PM EDT - 05/31/2025 11:59 PM EDT Hospital Encounter Radiology Department - [address] [phone] Pain of right breast Discharge Disposition: Home or Self Care 05/31/2025 2:48 PM EDT - 05/31/2025 11:59 PM EDT Hospital Encounter Radiology Department - [address] [phone] Pain of right breast Discharge Disposition: Home or Self Care 05/26/2025 11:30 AM EDT Office Visit [address] [phone] Geovanna Bautista NP Acute pain of right lower extremity (Primary Dx); Venous insufficiency of right lower extremity; Varicose veins of both lower extremities with pain 05/25/[address] [phone] Anjel Crandall MD 05/05/2025 3:30 PM EDT Office Visit [address] [phone] Anju Vernon PA Pain of right breast (Primary Dx) 04/23/2025 Telephone [facility] Medicine [address] [phone] Anjel Crandall MD 04/22/2025 Nurse Triage [address] [phone] Anjel Crandall MD 04/21/2025 3:00 PM EDT Consult Vascular Surgery - [place] [address] [place] [address] Phyllis Ellis MD Varicose veins of both lower extremities with pain from Last 3 Months Immunizations Immunization Administration Dates Next Due Influenza Quadravalent, MDCK [...] CERVICAL BIOPSY W/ LOOP ELECTRODE EXCISION PROCEDURE: MA CONIZATION CERVIX W/WO D&C RPR ELTRD EXC; COMMENT: Patient see Dr Burton at [place], WILTON 2 with + exocerv margin (focal) OTHER SURGICAL HISTORY 10/27/14 PROCEDURE: HISTORICAL TOTAL HYSTERECTOMY W/O BSO; COMMENT: fibroids COLONOSCOPY 01/13/2016 PROCEDURE: HISTORICAL COLONOSCOPY; COMMENT: tics; repeat in 10 yrs COLONOSCOPY 03/30/2019 PROCEDURE: HISTORICAL COLONOSCOPY; COMMENT: diverticulosis; otherwise negative. OTHER SURGICAL HISTORY 02/23/2020 Left PROCEDURE: MA LAPS COLECTOMY PRTL W/END CLST & CLSR DSTL SGM HERNIA REPAIR 10/2020 PROCEDURE: REPAIR UMBILICAL HERNIA HERNIA REPAIR 10/25/2020 PROCEDURE: MA REPAIR FIRST ABDOMINAL WALL HERNIA; COMMENT: laparoscopic supraumbilical midline incisional hernia repair with mesh - Dr. Avelino De Leon BREAST BIOPSY 2013 Left PROCEDURE: BX BREAST; PERC NEEDLE CORE W/IMAG GUID; COMMENT: lt. breast bx.benign Medical History Medical History Date Comments Microscopic hematuria DX:Microsc opic hematuria; COMMENT: uro [facility] Hepatitis B carrier (CMS/HCC V24, CMS/HCC V28) [...] Sign Reading Time Taken Comments Blood Pressure 117/70 05/26/2025 11:28 AM EDT Pulse 68 05/26/2025 11:28 AM EDT Temperature 36.7 C (98 F) 05/26/2025 11:28 AM EDT Respiratory Rate 16 05/26/2025 11:28 AM EDT Oxygen Saturation 97% 05/05/2025 3:06 PM EDT Inhaled Oxygen Concentration - - Weight 91.2 kg (201 lb) 05/26/2025 11:28 AM EDT Height 149.9 cm (4' 11 ) 05/26/2025 11:28 AM EDT Body Mass Index 40.6 05/26/2025 11:28 AM EDT Plan of Treatment Upcoming Encounters Date Type Department Care Team (Late st Contact Info) Description 11/01/2025 1:20 PM EST Appointment Radiology Department - [address] [phone] 11/03/2025 9:00 AM EST Office Visit Adult Medicine [address] [phone] Anjel Crandall MD [address] [place] [address] Health Maintenance Due Date Last Done Comments Pneumococcal Vaccine: 50+ Years (1 of 1 - PCV) 2013 RSV Immunization Adult Patients (1 - Risk 50-74 years 1-dose series) 2013 Zoster Vaccines (2 of 2) 11/02/2020 09/07/2020 Hepatitis C Screening 08/11/2022 Social Influencers of Health Screening 08/11/2022 Depression Screening 09/02/2024 COVID-19 Vaccine ( season) 2025 01/06/2021, 12/09/2020 Influenza Vaccine (#1) 2025 2, 09/14/2021, 09/07/2020, Additional history exists Cervical Cancer Screening: Pap Smear 10/18/2025 10/18/2022, 07/20/2019, 06/11/2018 Breast Cancer Screening 05/31/2027 05/31/20 25, 10/31/2024, 10/05/2023, Additional history exists Cholesterol Screening (Lipid Panel) [...] Procedure Name Priority Date/Time Associated Diagnosis Comments US BREAST LIMITED RIGHT Routine 05/31/2025 3:25 PM EDT Pain of right breast MG MAMMO DIGITAL DIAGNOSTIC W DEVON RIGHT Routine 05/31/2025 3:03 PM EDT Pain of right breast PAP SMEAR Routine 10/18/2022 from Last 3 Months or Most Recently Relevant to Health Maintenance Results * US Breast Limited Right (05/31/2025 3:25 PM EDT) Anatomical Region Laterality Modality Breast Right Ultrasound 05/31/2025 4:12 PM EDT Impressions 05/31/2025 4:18 PM EDT No mammographic or sonographic correlate for right breast symptoms. Further management should be clinically based. No new mammographic evidence of malignancy in the right breast. BREAST DENSITY: B - There are scattered areas of fibroglandular density. BI-RADS CATEGORY: 1 - NEGATIVE RECOMMENDATION: Clinical management of right breast is recommended. MAMMO LOCATION: [facility], [address] [place] [address], [phone], . -------- FINAL REPORT -------- Dictated By: Charis Harris Dictated Date: 05/31/2025 16:12 ET Assigned Physician: Charis Harris Reviewed and Electronically Signed By: Charis Harris Signed Date: 05/31/2025 16:18 ET Workstation ID: [id number] Transcribed By: Self Edit Transcribed Date: 05/31/2025 16:12 ET Narrative 05/31/2025 4:18 PM EDT EXAM: MG MAMMO DIGITAL DIAGNOSTIC W DEVON RIGHT, US BREAST LIMITED RIGHT HISTORY: Right breast burning pain and lump. COMPARISON: Mammography as recent as 10/31/2024 and as far back as 07/29/2018 TECHNIQUE: Unilateral right mediolateral oblique and craniocaudal views were obtained digitally with 3-D mammogram (digital breast tomosynthesis). Computer-aided detection was utilized in evaluation of this exam (CAD). FINDINGS: No new suspicious mass, architectural distortion, or suspicious calcifications. Patient delineated the symptomatic area at the 9 o'clock position, approximately 10 cm from the nipple. Sonography shows no solid or cystic lesion in the area of concern. Procedure Note Charis Harris MD - 05/31/2025 EXAM: MG MAMMO DIGITAL DIAGNOSTIC W DEVON RIGHT, US BREAST LIMITED RIGHT HISTORY: Right breast burning pain and lump. COMPARISON: Mammography as recent as 10/31/2024 and as far back as109/28/2017 TECHNIQUE: Unilateral right mediolateral oblique and craniocaudal viewswere obtained digitally with 3-D mammogram (digital breast tomosynthesis).Computer-aided detection was utilized in evaluation of this exam (CAD). FINDINGS: No new suspicious mass, architectural distortion, or suspiciouscalcifications. Patient delineated the symptomatic area at the 9 o'clock position,approximately 10 cm from the nipple. Sonography shows no solid or cysticlesion in the area of concern. IMPRESSION: No mammographic or sonographic correlate for right breast symptoms.Further management should be clinically based. No new mammographicevidence of malignancy in the right breast. BREAST DENSITY: B - There are scattered areas of fibroglandular density. BI-RADS CATEGORY: 1 - NEGATIVE RECOMMENDATION: Clinical management of right breast is recommended. MAMMO LOCATION: [facility], [address] [place] [address], [id number], . -------- FINAL REPORT -------- Dictated By: Charis Harris Dictated Date: 05/31/2025 16:12 ET Assigned Physician: Charis Harris Reviewed and Electronically Signed By: Charis Harris Signed Date: 05/31/2025 16:18 ET Workstation ID: [id number] Transcribed By: Self Edit Transcribed Date: 05/31/2025 16:12 ET us Anju RODRIGEZ IMG US PROCEDURES Final Result * MG Mammo Digital Diagnostic w Devon Right (05/31/2025 3:03 PM EDT) Anatomical Region Laterality Modality Breast Right Mammography 05/31/2025 4:12 PM EDT Impressions 05/31/2025 4:18 PM EDT No mammographic or sonographic correlate for right breast symptoms. Further management should be clinically based. No new mammographic evidence of malignancy in the right breast. BREAST DENSITY: B - There are scattered areas of fibroglandular density. BI-RADS CATEGORY: 1 - NEGATIVE RECOMMENDATION: Clinical management of right breast is recommended. MAMMO LOCATION: [facility], [address] [place] [address], [address], . -------- FINAL REPORT -------- Dictated By: Charis Harris Dictated Date: 05/31/2025 16:12 ET Assigned Physician: Charis Harris Reviewed and Electronically Signed By: Charis Harris Signed Date: 05/31/2025 16:18 ET Workstation ID: [id number] Transcribed By: Self Edit Transcribed Date: 05/31/2025 16:12 ET Narrative 05/31/2025 4:18 PM EDT EXAM: MG MAMMO DIGITAL DIAGNOSTIC W DEVON RIGHT, US BREAST LIMITED RIGHT HISTORY: Right breast burning pain and lump. COMPARISON: Mammography as recent as 10/31/2024 and as far back as 07/29/2018 TECHNIQUE: Unilateral right mediolateral oblique and craniocaudal views were obtained digitally with 3-D mammogram (digital breast tomosynthesis). Computer-aided detection was utilized in evaluation of this exam (CAD). FINDINGS: No new suspicious mass, architectural distortion, or suspicious calcifications. Patient delineated the symptomatic area at the 9 o'clock position, approximately 10 cm from the nipple. Sonography shows no solid or cystic lesion in the area of concern. Procedure Note Charis Harris MD - 05/31/2025 EXAM: MG MAMMO DIGITAL DIAGNOSTIC W DEVON RIGHT, US BREAST LIMITED RIGHT HISTORY: Right breast burning pain and lump. COMPARISON: Mammography as recent as 10/31/2024 and as far back as109/28/2017 TECHNIQUE: Unilateral right mediolateral oblique and craniocaudal viewswere obtained digitally with 3-D mammogram (digital breast tomosynthesis).Computer-aided detection was utilized in evaluation of this exam (CAD). FINDINGS: No new suspicious mass, architectural distortion, or suspiciouscalcifications. Patient delineated the symptomatic area at the 9 o'clock position,approximately 10 cm from the nipple. Sonography shows no solid or cysticlesion in the area of concern. IMPRESSION: No mammographic or sonographic correlate for right breast symptoms.Further management should be clinically based. No new mammographicevidence of malignancy in the right breast. BREAST DENSITY: B - There are scattered areas of fibroglandular density. BI-RADS CATEGORY: 1 - NEGATIVE RECOMMENDATION: Clinical management of right breast is recommended. MAMMO LOCATION: [facility], [address] [place] [address], [address], . -------- FINAL REPORT -------- Dictated By: Charis Harris Dictated Date: 05/31/2025 16:12 ET Assigned Physician: Charis Harris Reviewed and Electronically Signed By: Charis Harris Signed Date: 05/31/2025 16:18 ET Workstation ID: [id number] Transcribed By: Self Edit Transcribed Date: 05/31/2025 16:12 ET us Anju RODRIGEZ IMG BI PROCEDURES Final Result * Pap smear (10/18/2022) 10/18/2022 Narrative HISTORICAL TESTING LAB RESULTING AGENCY - 10/29/2022 11:41 AM EST [id number] THINPREP PAP, IMAGED: ATYPICAL SQUAMOUS CELLS OF [...] Most Recently Relevant to Health Maintenance Insurance [facility] [address] [place] [address] Advance Directives Documents on File Type Date Recorded 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
--- OUTSIDE RECORDS SUMMARY | 2025-06-29 20:17 | XMS_ITS ---
Author Name [facility] Organization Unknown Care Team Organization Name Specialty Phone Email Start Date End Da te [facility] NELY GAB[facility]EL [facility] 07/10/2022 4
== END 2025-06-29 18:41 | disposition home or self-care (01) ==
PROVIDERS: Emergency Provider Emergency Medicine; PCP Internal Medicine
DX: M79.601 Pain in right arm (principal); M77.8 Other enthesopathies, not elsewhere classified
CPT/HCPCS: 73030; 73090; 93971; 99281; 99283; 99284

== ENCOUNTER → 2025-06-29 15:18 | Outpatient (BNV) | payer OTHER, SELFPAY | PROVIDERS: PCP Internal Medicine; Visit Provider Radiology Diagnostic Ultrasound | DX: M79.601 Pain in right arm (principal) | CPT/HCPCS: 73030; 73090; 93971 ==

== ENCOUNTER 2025-07-20 23:35 | Emergency (ER) | payer OTHER, SELFPAY ==
--- NOTE | ~2025-07-20 | CT_ITS ---
CLINICAL HISTORY: R flank Pain CT abdomen and pelvis with contrast Comparison: CT/SR - CT ABDOMEN PELVIS W IV CON - 09/05/24 19:21 EST Findings: No consolidation or effusion in the included lung bases. Abdominal solid organs without acute abnormality or abnormal enhancement. The adrenal glands are nonenlarged. Gallbladder nondistended. The stomach and bowel loops are nondistended. There are anastomotic sutures in the sigmoid colon. There is sigmoid colon diverticulosis. Otherwise no focal colonic lesions or pneumatosis. There is no mesenteric inflammation. Appendix is normal. No free fluid, collections or free air. No aortic dissection or aneurysm. No lymphadenopathy. The bladder is normal. Uterus surgically absent. There are no adnexal lesions. There no acute soft tissue or skeletal abnormality in the abdomen or pelvis. IMPRESSION: No acute findings. Mild constipation. This document has been electronically signed by: Vernon Alford MD on 07/21/2025 04:30:04
[2025-07-20 23:46] VITALS: BP 146/69; PULSE 71; RESP 18; TEMP 36.3; O2SAT 97; BMI 39.8
[2025-07-21 00:15] LABS: MANUAL DIFF FLAG NO
[2025-07-21 00:16] LABS: Hematocrit 37.2 % (37.0-47.0); Hemoglobin 11.8 g/dl (12.0-16.0); Imm Gran Abs Auto 0.02 X10*3/uL (0.00-0.03); Imm Gran Pct Auto 0.3 % (0.0-0.4); Lymphocytes Absolute Auto 2.2 X10*3/uL (1.2-4.9); Mean Corpuscular HGB Conc 31.7 g/dl (31.0-35.0); Mean Corpuscular Hemoglobin 29.2 pg (27.0-33.0); Mean Corpuscular Volume 92.1 fL (80.0-98.0); NRBC Abs Auto 0.000 X10*3/uL (0.0-0.012); NRBC Pct Auto 0.0 /100WBC (0.0-0.2); Platelet Count 203 X10*3/uL (160-400); Red Blood Count 4.04 X10*6/uL (4.20-5.50); White Blood Count 6.0 X10*3/uL (4.8-10.8)
[2025-07-21 00:23] LABS: Appearance Urine Clear; Glucose Urine UA Negative (Negative); PH 5.5 (5.0-9.0); Specific Gravity - Urine >= 1.030 (1.005-1.025); UMIC TRIGGER UACC YES
[2025-07-21 00:27] LABS: Anion Gap 11 (12-20); Blood Urea Nitrogen 29 mg/dL (9-16); Calcium 9.1 mg/dL (8.4-10.2); Carbon Dioxide 23 mmol/L (22-29); Chloride 112 mmol/L (96-108); Creatinine Clr Calc Pharmacy 63.8; Estimated Glomerular Filt Rate > 60; Potassium 4.2 mmol/L (3.3-5.1); Sodium 142 mmol/L (135-145)
--- NOTE | 2025-07-21 03:07 | ED_ITS ---
HPI - General Adult General Chief complaint: General Medical Stated complaint: lower back pain Time Seen by Provider: 07/21/25 02:59 Source: patient Mode of arrival: ambulatory Limitations: language barrier ([employer] Service Technician services utilized.) History of Present Illness ED Provider: Ascencion RODRIGEZ HPI narrative: The patient is a 59-year-old female presenting to the ED for evaluation of sudden onset right flank pain which began approximately 2 hours prior to arrival in the ED while she was at rest in bed. The patient reports pain is worse with movement and palpation. The patient denies associated fever/chills, nausea, vomiting, chest pain, shortness of breath, dysuria, or hematuria. The patient denies history of kidney stones. 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 Patient also reports lifting groceries earlier today without associated pain. The patient reports remote history of PE in 2021 for which she was previously on anticoagulation, not currently anticoagulated. The patient reports pain is more severe with palpation and movement as compared to respiration. The patient denies associated cough or hemoptysis. Related Data Previous Rx's ?Medication ?Instructions ?Recorded albuterol sulfate 90 mcg/actuation 2 puff inhalation Q 4-6H PRN 01/11/22 aerosol inhaler (ProAir HFA) shortness of breath or wh eezing #8.5 grams levofloxacin 750 mg tablet 750 mg PO DAILY 7 days #7 t abs 01/11/22 ketorolac 10 mg tablet 10 mg PO TID PRN pain 5 days #15 11/13/22 tabs levofloxacin 500 mg tablet 500 mg PO DAILY 10 days #10 tabs 03/10/24 metronidazole 500 mg tablet 500 mg PO TID #30 tabs 05/26 pantoprazole 40 mg tablet,delayed 40 mg PO DAILY #14 t abs 09/05/24 release (Protonix) cyclobenzaprine 5 mg tablet 5 mg PO BID PRN muscle spa sm #14 05/21/25 tabs naproxen 500 mg tablet 500 mg PO BID PRN pain #14 t abs 06/29/25 prednisone 20 mg tablet 40 mg (2 x 20 mg) PO DAILY 5 days 06/29/25 #10 tabs cyclobenzaprine 10 mg tablet 10 mg PO TID PRN muscle s pasm #14 07/21/25 tabs ibuprofen 600 mg tablet 600 mg PO Q8H PRN fever or p ain 07/21/25 #30 tabs Allergies Allergy/AdvReac Type Severity Reaction Status Date / Time acetaminophen Allergy Severe RASH, Verified 07/20/25 23:49 ITCHY EYES, ? ANAPHYLAXIS Review of Systems 2 Review of Systems: Yes all other systems are reviewed and are negative PMFSH Past Medical History Medical History (Updated 07/21/25 @ 06:33 by Ascencion Dominguez PA-C) Pulmonary embolus Breast pain, right Social History Social History (Updated 05/21/25 @ 10:27 by Suzy Ramirez DO) Patient Tobacco Use Status: Never used Tobacco Smoked in Last 30 Days: No Use of substances other than those prescribed or required for medical reasons: No Advance Directives: No Advance Directives Information Provided: Yes Physical Exam ED Vital Signs: Vital Signs - 24 hr 07/20/25 23:46 07/21/25 03:21 07/21/25 06:00 Temperature 97.3 F 97.5 F 97.9 F Pulse Rate 71 67 67 Respiratory Rate 18 20 16 Blood Pressure 146/69 H 171/94 H 126/64 Pulse Oximetry 97 100 100 Oxygen Delivery Method Room Air Room Air Room Air BMI result Body Mass Index 39.8 CONSTITUTIONAL: The patient appears uncomfortable, but otherwise non-toxic, well nourished and in no acute distress. Vital signs as documented. HEAD: Atraumatic, normocephalic. EYES: EOMs grossly intact, pupils equal, conjunctiva clear, no exudate. ENT: Nares patent, no discharge. Airway patent, no audible stridor, visible mucosa is pink and moist without noted lesions. NECK: Trachea is midline, no obvious masses or gross abnormalities. CHEST: Symmetric movement, normal appearance. LUNGS: LS present and CTAB, no w/r/r. Non-labored work of breathing. CARDIAC: Regular Rhythm, S1/S2 appreciated, no murmurs, rubs or gallops. ABDOMEN: Abdomen soft and non-tender x4 quadrants, no palpable masses or organomegaly. Positive CVAT on the right. : Deferred. EXTREMITIES: Normal tone, moves all extremities spontaneously without reported pain. No obvious acute injury or deformity noted. NEURO: Alert and oriented x3, CN II-XII appear grossly intact. Cerebellar Functioning grossly intact. No obvious sensory or motor deficits. Speech clear and appropriate. PSYCH: normal affect, appropriate eye contact, fluid speech, with appropriate response to questioning. No reported suicidality or homicidality. SKIN: Warm, dry, color appropriate, normal turgor. No rashes noted. Medications Administered Discontinued Medications Generic Name Dose Route Start Last Admin Trade Name Flacoq PRN Reason Stop Dose Admin Sodium Chloride 1,000 mls @ 999 mls/hr 07/21/25 03:15 07/21/25 03:27 Ns IV 07/21/25 04:15 999 mls/hr .Q1H1M FREEMAN Administration Iohexol 85 ml 07/21/25 03:47 07/21/25 03:47 Iohexol 350 Mg/Ml 100 Ml Infus..Btl IV 07/21/25 03:48 85 ml ONCE ONE Administration Ketorolac Tromethamine 15 mg 07/21/25 03:11 07/21/25 03:27 Ketorolac Tromethamine 15 Mg/Ml Vial IVPUSH 07/21/25 03:12 15 mg ONCE ONE Administration Medical Decision Making Medical Decision Making MDM Narrative: 3:16 AM 07/21/2025 (Valente RODRIGEZ): The patient is a 59-year-old female presenting to the ED for evaluation of sudden onset right flank pain which began approximately 2 hours prior to arrival in the ED while she was at rest in bed. The patient reports pain is worse with movement and palpation. The patient denies associated fever/chills, nausea, vomiting, chest pain, shortness of breath, dysuria, or hematuria. The patient denies history of kidney stones. 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 Patient also reports lifting groceries earlier today without associated pain. The patient reports remote history of PE in 2021 for which she was previously on anticoagulation, not currently anticoagulated. The patient reports pain is more severe with palpation and movement as compared to respiration. The patient denies associated cough or hemoptysis. On exam patient has point tenderness of the right flank and positive CVAT which fully reproduces patient's pain. The patient's laboratory evaluation shows no leukocytosis, significant anemia, or electrolyte abnormality, there is elevated an elevated BUN of 29 which is similar to previous in September of this year. The patient's urinalysis shows moderate blood with no bacteria, leukocyte esterase, or nitrites. The patient is normotensive without tachycardia, hypoxia, or tachypnea. Due to the sudden onset, atraumatic nature of the patient's pain with positive CVAT and microscopic hematuria, we will obtain CT abdomen and pelvis to evaluate for ureterolithiasis. We will treat with IV fluid hydration and Toradol. 5:42 AM 07/21/2025 (Valente RODRIGEZ): The patient's CT abdomen and pelvis shows no acute pathology. The patient is normotensive, without tachycardia, hypoxia, or tachypnea. The patient's pain is reproducible with direct palpation and movement, however given the patient's history of previous PE, and given her age, we are unable to rule out PE by PERC criteria. The patient will have a D-dimer added, if D-dimer is negative patient will be discharged with likely musculoskeletal strain, however if D-dimer is positive the patient will require 6 hour observation and CTA of the chest 6 hours after IV contrast was received for abdomen and pelvis CT. 6:29 AM 07/21/2025 (Valente RODRIGEZ): The patient's D-dimer is negative, no indication for CTA. The patient will be discharged with supportive care for musculoskeletal strain. Admission/Observation Consideration of admission/observation: Escalation of care including admission/observation considered Lab Data MDM Lab Attestation statement: I reviewed the patient's lab results. 07/21/25 00:11 07/21/25 00:11 Labs: Lab Results 07/21/25 07/21/25 07/21/25 Range/Units 00:11 00:17 05:58 WBC 6.0 (4.8-10.8) X10*3/uL RBC 4.04 L (4.20-5.50) X10*6/uL Hgb 11.8 L (12.0-16.0) g/dl Hct 37.2 (37.0-47.0) % MCV 92.1 (80.0-98.0) fL MCH 29.2 (27.0-33.0) pg MCHC 31.7 (31.0-35.0) g/dl RDW 14.3 (11.0-16.0) % Plt Count 203 (160-400) X10*3/uL MPV 11.2 (9.4-12.3) fL Immature Gran % (Auto) 0.3 (0.0-0.4) % Neut % (Auto) 50.9 (45-73) % Lymph % (Auto) 36.1 (20-40) % [place] % (Auto) 10.8 (2-11) % Eos % (Auto) 1.2 (0-4) % Baso % (Auto) 0.7 (0-2) % Lymph # (Auto) 2.2 (1.2-4.9) X10*3/uL [place] # (Auto) 0.7 (0.1-1.2) X10*3/uL Eos # (Auto) 0.1 (0.0-0.4) X10*3/uL Baso # (Auto) 0.0 (0.0-0.2) X10*3/uL Abs Immat Gran (auto) 0.02 (0.00-0.03) X10*3/uL Absolute Neuts (auto) 3.1 (2.0-8.3) x10*3/uL Absolute Nucleated RBC 0.000 (0.0-0.012) X10*3/uL Nucleated RBC % (auto) 0.0 (0.0-0.2) /100WBC D-Dimer High Sensitivty 169 NG/ML Sodium 142 (135-145) mmol/L Potassium 4.2 (3.3-5.1) mmol/L Chloride 112 H (96-108) mmol/L Carbon Dioxide 23 (22-29) mmol/L Anion Gap 11 L (12-20) BUN 29 H (9-16) mg/dL Creatinine 0.90 (0.5-1.4) mg/dL Estim Creat Clear Calc 63.8 Estimated GFR > 60 Random Glucose 127 H (60-115) mg/dL Calcium 9.1 (8.4-10.2) mg/dL Urine Color Yellow Urine Appearance Clear Urine pH 5.5 (5.0-9.0) Ur Specific [place] >= 1.030 H (1.005-1.025) Urine Protein Trace (Neg-Trace) mg/dL Urine Glucose (UA) Negative (Negative) mg/dL Urine Ketones Trace (Negative) mg/dL Urine Blood Moderate (2+) H (Negative) Urine Nitrite Negative (Negative) Ur Leukocyte Esterase Negative (Negative) Urine RBC 11-20 H (0-2) /HPF Urine WBC 0-5 (0-5) /HPF Ur Squamous Epith Cells 0-2 (0-2) /HPF Urine Bacteria None Seen (None Seen) Hyaline Casts 0-2 (0-2) /LPF Radiology Impression Discussion of test interpretation with radiology: I have reviewed the radiologist's reading. External Record Review External record reviewed: Outpatient record and Prior outpatient labs Prescription Management I considered prescription management with: Pain Medication Discharge Plan Discharge Clinical Impression: Musculoskeletal strain Patient Disposition: Home, Self-Care Instructions: Muscle Strain (ED), Musculoskeletal Pain (ED) Additional Instructions: Bettie por elegir el [facility] para rush atenci?n hoy. Afortunadamente, los resultados de laboratorio, el an?lisis de orina, la tomograf?a computarizada y el examen f?sico de hoy son tranquilizadores. En medina momento, no hay indicaci?n de ingreso hospitalario ni de observaci?n continua en urgencias, y puede ser dado de filemon a rush domicilio sin riesgo. Yvrose s?ntomas probablemente se deban a vicenta distensi?n musculoesquel?corbin en el costado derecho. No se encontraron indicios de c?lculos renales, co?gulos sangu?neos, infecci?n bacteriana, infecci?n del tracto urinario ni ninguna otra causa peligrosa de rush dolor. Rush dolor mejor? con las intervenciones realizadas en urgencias. Debe samina ibuprofeno 600 mg cada 8 horas seg?n sea necesario para cualquier dolor adicional. Por favor, mant?ngase stormy hidratado y descanse lo suficiente. [place] parte de rush plan de atenci?n, tambi?n se le spivey recetado un relajante muscular llamado Flexeril. Por favor, tome medina medicamento solo para el dolor intenso o los espasmos que no se alivian con ibuprofeno o paracetamol. Los relajantes musculares pueden conllevar un alto riesgo de adicci?n y abuso involuntarios. [place] medina medicamento ?nicamente seg?n las indicaciones y solo si es absolutamente necesario. [place] medicamento puede causarle somnolencia; no debe conducir, operar maquinaria pesada ni ser el ?chuck cuidador de ni?os mientras lo est? tomando. Le hemos recetado un parche de lidoca?na. Si le proporciona un alivio significativo, puede adquirir parches adicionales en cualquier farmacia local sin receta. Por favor, consulte con rush m?dico de cabecera para vicenta reevaluaci?n, el control adicional de yvrose s?ntomas y la continuidad de rush atenci?n preventiva. Si no tiene un m?dico de cabecera, llame a [facility] al [phone] para que le asignen erlinda. Mientras espera, puede llamar a nuestra Cl?ad de Atenci?n sin Saritha Previa al [phone] para consultas que no lizet de emergencia. Por favor, regrese al departamento de emergencias si presenta un cambio grave o repentino en yvrose s?ntomas, fiebre superior a 100.4 que no mejora con Tylenol o Ibuprofeno, v?mitos recurrentes o cualquier otro s?ntoma o preocupaci?n nueva o que empeore. Thank you for choosing [facility]'s Emergency Department for your care today. Thankfully your laboratory evaluation, urinalysis, CT, and exam today are all reassuring. At this time there is no indication for admission to the hospital or continued ED observation, and it is safe to discharge you home. Your symptoms are likely due to a musculoskeletal strain of your right flank. There was no evidence of a kidney stone, blood clot, bacterial infection, urinary tract infection, or other dangerous cause of your pain. Your pain improved with the interventions in the ED. You should take ibuprofen 600mg every 8 hours as needed for any additional pain. Please stay well hydrated and get plenty of rest. As a part of your care plan, you have also been prescribed a muscle relaxer called Flexeril. Please take this medication only for severe pain or spasm that is not relieved by ibuprofen and/or Tylenol. Muscle relaxer medications can carry high risk of unintentional addiction and abuse. Take this medication only as directed and only if absolutely necessary. This medicine can make you drowsy, you are not allowed to drive, operate heavy machinery, or be the sole care provider for children while taking this medication. We have treated you with a lidocaine patch, if you find this provides you significant relief additional patches can be purchased at any local pharmacy without a prescription. Please follow up with your primary care physician for re-evaluation, additional management of your symptoms, and continued preventative care. If you do not have a primary care physician, please call the [facility] at [phone] to establish a new primary care physician. While waiting to establish your new primary care physician, you can call our Walk-in Care [facility] at [phone] for non-emergency needs. Please return to the emergency department if you develop a severe or sudden change in your symptoms, a fever over 100.4 that does not improve with Tylenol or Ibuprofen, recurrent vomiting, or any other new or worsening symptoms or concerns. Prescriptions: New cyclobenzaprine 10 mg tablet 10 mg PO TID PRN (Reason: muscle spasm) Qty: 14 0RF ibuprofen 600 mg tablet 600 mg PO Q8H PRN (Reason: fever or pain) Qty: 30 0RF No Action levofloxacin 750 mg tablet 750 mg PO DAILY 7 Days Qty: 7 0RF albuterol sulfate [ProAir HFA] 90 mcg/actuation HFA aerosol inhaler 2 puff inhalation Q4-6H PRN (Reason: shortness of breath or wheezing) Qty: 8.5 0RF ketorolac 10 mg tablet 10 mg PO TID PRN (Reason: pain) 5 Days Qty: 15 0RF prednisone 20 mg tablet 40 mg PO DAILY 5 Days Qty: 10 0RF naproxen 500 mg tablet 500 mg PO BID PRN (Reason: pain) Qty: 14 0RF levofloxacin 500 mg tablet 500 mg PO DAILY 10 Days Qty: 10 0RF metronidazole 500 mg tablet 500 mg PO TID Qty: 30 0RF pantoprazole [Protonix] 40 mg tablet,delayed release (DR/EC) 40 mg PO DAILY Qty: 14 0RF cyclobenzaprine 5 mg tablet 5 mg PO BID PRN (Reason: muscle spasm) Qty: 14 0RF Referrals: Anjel Crandall III, MD [Primary Care Provider, Medical] Clinical Impression: Musculoskeletal strain Print Language: Nepalese
[2025-07-21 03:21] VITALS: BP 171/94; PULSE 67; RESP 20; TEMP 36.4; O2SAT 100
[2025-07-21] MEDS: iohexoL 350 MG/ML 100 ML INFUS..BTL 85 ML IV (03:47)
[2025-07-21 06:00] VITALS: BP 126/64; PULSE 67; RESP 16; TEMP 36.6; O2SAT 100
[2025-07-21 06:18] LABS: D Dimer High Sensitivity 169 NG/ML
[2025-07-21] MEDS: Lidocaine 4 % Patch ADH..PATCH 1 PATCH TRANSDERMA (06:49)
[2025-07-21 06:59] VITALS: BP 126/64; PULSE 67; RESP 16; TEMP 36.6; O2SAT 100
--- OUTSIDE RECORDS SUMMARY | 2025-07-21 14:32 | XMS_ITS | Clinical Summary ---
Author Organization [facility] Address [address] [place] [address] Phone Care Team Providers Care Machinist Name Role Phone Anjel Crandall MD Primary Care Provider [phone] Allergies Active Allergy Reactions Criticality Noted Date [...] Microscopic hematuria 06/16/2024 Overview (06/16/2024): uro at [place] Depression with anxiety 06/16/2024 History of pulmonary [...] 10/17/2020 Overview (06/16/2024[facility] Reccomendations as of 08/21/2020 Not visually signficant, [...] Encounters Date Type Department Care Team Description 07/21/2025 Telephone Adult Medicine [address] [phone] Emmy Weinberg MA 06/30/2025 2:30 PM EDT Office Visit [address] [phone] Anju Vernon PA Pain of right upper extremity (Primary Dx) 06/30/[address] [phone] Anjel Crandall MD 06/22/2025 Telephone Vascular Surgery - [place] [address] [facility] [address] [place] [address] Ky Alford MD 06/01/2025 Results Follow-Up [address] [phone] Gloria Camejo MA 05/31/2025 2:48 PM EDT - 05/31/2025 11:59 PM EDT Hospital Encounter Radiology Department - [address] [phone] Pain of right breast Discharge Disposition: Home or Self Care 05/31/2025 2:48 PM EDT - 05/31/2025 11:59 PM EDT Hospital Encounter Radiology Department - [address] [phone] Pain of right breast Discharge Disposition: Home or Self Care 05/26/2025 11:30 AM EDT Office Visit [address] [phone] Geovanna Bautista NP Acute pain of right lower extremity (Primary Dx); Venous insufficiency of right lower extremity; Varicose veins of both lower extremities with pain 05/25/[address] [phone] Anjel Crandall MD 05/05/2025 3:30 PM EDT Office Visit [address] [phone] Anju Vernon PA Pain of right breast (Primary Dx) 04/23/[address] [phone] Anjel Crandall MD 04/22/2025 Nurse Triage [address] [phone] Anjel Crandall MD 04/21/2025 3:00 PM EDT Consult Vascular Surgery - [place] [address] [place] [address] Phyllis Ellis MD Varicose veins [...] CERVICAL BIOPSY W/ LOOP ELECTRODE EXCISION PROCEDURE: OK CONIZATION CERVIX W/WO D&C RPR ELTRD EXC; COMMENT: Patient see Dr Burton at [facility], [place] 2 with + exocerv margin (focal) OTHER SURGICAL HISTORY 10/27/14 PROCEDURE: HISTORICAL TOTAL HYSTERECTOMY W/O BSO; COMMENT: fibroids COLONOSCOPY 01/13/2016 PROCEDURE: HISTORICAL COLONOSCOPY; COMMENT: tics; repeat in 10 yrs COLONOSCOPY 03/30/2019 PROCEDURE: HISTORICAL COLONOSCOPY; COMMENT: diverticulosis; otherwise negative. OTHER SURGICAL HISTORY 02/23/2020 Left PROCEDURE: OK LAPS COLECTOMY PRTL W/END CLST & CLSR DSTL SGM HERNIA REPAIR 10/2020 PROCEDURE: REPAIR UMBILICAL HERNIA HERNIA REPAIR 10/25/2020 PROCEDURE: OK REPAIR FIRST ABDOMINAL WALL HERNIA; COMMENT: laparoscopic supraumbilical midline incisional hernia repair with mesh - Dr. Avelino De Leon BREAST BIOPSY 2013 Left PROCEDURE: BX BREAST; PERC NEEDLE CORE W/IMAG GUID; COMMENT: lt. breast bx.benign Medical History Medical History Date Comments Microscopic hematuria DX:Microsc opic hematuria; COMMENT: uro at [place] Hepatitis B carrier (CMS/HCC V24, CMS/HCC V28) [...] Sign Reading Time Taken Comments Blood Pressure 116/72 06/30/2025 2:33 PM EDT Pulse 90 06/30/2025 2:33 PM EDT Temperature 36.4 C (97.5 F) 06/30/2025 2:33 PM EDT Respiratory Rate 16 05/26/2025 11:28 AM EDT Oxygen Saturation 95% 06/30/2025 2:33 PM EDT Inhaled Oxygen Concentration - - Weight 90.9 kg (200 lb 6.4 oz) 06/30/2025 2:33 P M EDT Height 149.9 cm (4' 11.02 ) 06/30/2025 2:33 PM E DT Body Mass Index 40.45 06/30/2025 2:33 PM EDT Plan of Treatment Upcoming Encounters Date Type Department Care Team (Late st Contact Info) Description 11/01/2025 1:20 PM EST Appointment Radiology Department [address] [phone] 11/03/2025 9:00 AM EST Office Visit Adult Medicine [address] [phone] Anjel Crandall MD [address] [place] [address] Health Maintenance Due Date Last Done Comments Pneumococcal Vaccine: 50+ Years (1 of 1 - PCV) 2013 RSV Immunization Adult Patients (1 - Risk 50-74 years 1-dose series) 2013 Zoster Vaccines (2 of 2) 11/02/2020 09/07/2020 Hepatitis C Screening 08/11/2022 Social Influencers of Health Screening 08/11/2022 Depression Screening 09/02/2024 COVID-19 Vaccine (3 - season) 2025 01/06/2021, 12/09/2020 Influenza Vaccine (#1) 2025 , 09/14/2021, 09/07/2020, Additional history exists Cervical Cancer [...] of right breast is recommended. MAMMO LOCATION: [facility], [address] [place] [address], [id number], . -------- FINAL REPORT -------- Dictated By: Charis Harris Dictated Date: 05/31/2025 16:12 ET Assigned Physician: Charis Harris Reviewed and Electronically Signed By: Charis Harris Signed Date: 05/31/2025 16:18 ET Workstation ID: [id number] Transcribed By: Self Edit Transcribed Date: 05/31/2025 [...] of right breast is recommended. MAMMO LOCATION: [facility], [address] [place] [address], [id number], . -------- FINAL REPORT -------- Dictated By: Charis Harris Dictated Date: 05/31/2025 16:12 ET Assigned Physician: Charis Harris Reviewed and Electronically Signed By: Charis Harris Signed Date: 05/31/2025 16:18 ET Workstation ID: [id number] Transcribed By: Self Edit Transcribed Date: 05/31/2025 [...] of right breast is recommended. MAMMO LOCATION: [facility], [address] [place] [address], [id number], . -------- FINAL REPORT -------- Dictated By: Charis Harris Dictated Date: 05/31/2025 16:12 ET Assigned Physician: Charis Harris Reviewed and Electronically Signed By: Charis Harris Signed Date: 05/31/2025 16:18 ET Workstation ID: [id number] Transcribed By: Self Edit Transcribed Date: 05/31/2025 [...] of right breast is recommended. MAMMO LOCATION: [facility], [address] [place] [address], [id number], . -------- FINAL REPORT -------- Dictated By: Charis Harris Dictated Date: 05/31/2025 16:12 ET Assigned Physician: Charsi Harris Reviewed and Electronically Signed By: Charis Harris Signed Date: 05/31/2025 16:18 ET Workstation ID: [id number] Transcribed By: Self Edit Transcribed Date: 05/31/2025 16:12 ET Anju RODRIGEZ IMG BI PROCEDURES Final Result * Pap smear (10/18/2022) 10/18/2022 Narrative HISTORICAL TESTING LAB RESULTING AGENCY - 10/29/2022 11:41 AM EST [id number] THINPREP PAP, IMAGED: ATYPICAL SQUAMOUS CELLS OF [...] Most Recently Relevant to Health Maintenance Insurance [facility] Advance Directives Documents on File Type Date Recorded 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
--- OUTSIDE RECORDS SUMMARY | 2025-07-21 14:32 | XMS_ITS | Encounter Summary ---
Author Organization [facility] Address [address] [place] [address] Care Team Providers Care Shipping Room Supervisor Name Role Phone Anjel Crandall MD Primary Care Provider [phone] Encounter Details Date Type Department Care Team ([facility] Contact Info) Description 06/01/2025 Results Follow-Up Adult Medicine [address] [phone] Gloria Camejo MA Social History Tobacco Use [...] Upcoming Encounters Date Type Department Care Team ([facility] Contact Info) Description 11/01/2025 1:20 PM EST Appointment Radiology Department - [address] [phone] 11/03/2025 9:00 AM EST Office Visit Adult Medicine [address] [phone] Anjel Crandall MD [address] [place] [address] documented as of this encounter Visit Diagnoses Not on filedocumented in this encounter Care Teams Shipping Room Supervisor Relationship Specialty Start Date End Date Anjel Crandall MD [address] [place] [id number] PCP - General Internal Medicine 08/14/24 documented as of this encounter
== END 2025-07-21 06:59 | disposition home or self-care (01) ==
PROVIDERS: Physician Assistant; Emergency Provider Emergency Medicine; PCP Internal Medicine
DX: S39.012A Strain of muscle, fascia and tendon of lower back, initial encounter (principal); X58.XXXA Exposure to other specified factors, initial encounter; Y93.9 Activity, unspecified; Y92.9 Unspecified place or not applicable; R10.A1 Flank pain, right side; K59.00 Constipation, unspecified
CPT/HCPCS: 36415; 74177; 80048; 81001; 85025; 85379; 99284; J1885; Q9967

== ENCOUNTER → 2025-07-21 03:07 | Outpatient (BNV) | payer OTHER, SELFPAY | PROVIDERS: Emergency Provider Emergency Medicine; PCP Internal Medicine; Visit Provider Radiology Diagnostic Radiology | DX: K59.00 Constipation, unspecified (principal) | CPT/HCPCS: 74177 ==

== ENCOUNTER 2025-07-29 15:19 | Emergency (ER) | payer OTHER, SELFPAY ==
--- NOTE | ~2025-07-29 | CT_ITS ---
CLINICAL HISTORY: R side flank pain CT abdomen and pelvis with contrast Comparison: CT/REG/SR - CT ABDOMEN PELVIS W IV CON - 07/21/25 03:43 EST Findings: Bibasilar dependent subsegmental atelectasis. The liver, spleen, left and right kidney, adrenals, pancreas and gallbladder within normal limits. Left lower quadrant anterior of the left iliopsoas and of the left ureter 4 separate surgical clips present, coronal image number 44 of 83 series 17. There is diffuse fecal material seen throughout the colon. There are a few phleboliths in the pelvic floor. Prior hysterectomy. Diverticulosis. The bones are intact. Mild osteopenia. IMPRESSION: 1. Diverticulosis. 2. Constipation.. 3. No acute intraabdominal or pelvic findings. This document has been electronically signed by: Ted Simpson MD on 07/29/2025 18:34:02
--- NOTE | ~2025-07-29 | CT_ITS ---
CLINICAL HISTORY: history of PE, with chest pain not anticoagulated CT angiography chest with contrast. 3D Postprocessing. Comparison: None provided Findings: The heart size is normal. RV/LV ratio is normal. Unremarkable thoracic aorta and great vessels. No aneurysm. No main or segmental pulmonary emboli identified. Hiatal hernia. The lungs are clear. The visualized upper abdomen is unremarkable. No acute fractures. IMPRESSION: 1. Hiatal hernia. 2. No main or segmental pulmonary emboli identified. This document has been electronically signed by: Ted Simpson MD on 07/29/2025 18:38:33
--- NOTE | 2025-07-29 15:19 | ED_ITS ---
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 Patient reports she was seen in the department for the same pain had a CT abdomen/pelvis that was negative and discharged with cyclobenzoprine. Patient states she had started to feel better but the pain came back this morning while she was serving her family Thanksgiving dinner. Patient states the pain of the R side is stronger and is now radiating under the R breast. Patient states she took a dose of cyclobenzoprine this morning without relief. Patient describes the pain as sharp and stabbing that is exacerbated with movement and relieved with deep inspiration. When the patient moves in a certain position, the pain is maximal and takes her breath away make her feel SOB. Patient denies injury/fall/trauma, fevers, chills, abdominal pain, nausea, vomiting, headaches, visual changes, urinary symptoms, recent illness, recent travel, sick contacts. MD complaint: R sided pain radiating under the breast Related Data Previous Rx's ?Medication ?Instructions ?Recorded albuterol sulfate 90 mcg/actuation 2 puff inhalation Q 4-6H PRN 01/11/22 aerosol inhaler (ProAir HFA) shortness of breath or wh eezing #8.5 grams levofloxacin 750 mg tablet 750 mg PO DAILY 7 days #7 t abs 01/11/22 ketorolac 10 mg tablet 10 mg PO TID PRN pain 5 days #15 11/13/22 tabs levofloxacin 500 mg tablet 500 mg PO DAILY 10 days #10 tabs 03/10/24 metronidazole 500 mg tablet 500 mg PO TID #30 tabs 05/26 pantoprazole 40 mg tablet,delayed 40 mg PO DAILY #14 t abs 09/05/24 release (Protonix) cyclobenzaprine 5 mg tablet 5 mg PO BID PRN muscle spa sm #14 05/21/25 tabs naproxen 500 mg tablet 500 mg PO BID PRN pain #14 t abs 06/29/25 prednisone 20 mg tablet 40 mg (2 x 20 mg) PO DAILY 5 days 06/29/25 #10 tabs cyclobenzaprine 10 mg tablet 10 mg PO TID PRN muscle s pasm #14 07/21/25 tabs ibuprofen 600 mg tablet 600 mg PO Q8H PRN fever or p ain 07/21/25 #30 tabs ketorolac 10 mg tablet 10 mg PO Q8H PRN pain 3 days #9 07/29/25 tabs Allergies Allergy/AdvReac Type Severity Reaction Status Date / Time acetaminophen Allergy Severe RASH, Verified 07/29/25 15:39 ITCHY EYES, ? ANAPHYLAXIS Review of Systems 2 Review of Systems: Yes all other systems are reviewed and are negative [facility] Past Medical History Attestation statement: The following information was validated with the patient. Source: old records reviewed, obtained from family (daughter at bedside ) and nursing notes reviewed Medical History Pulmonary embolus Breast pain, right Social History Social History Alcohol intake: current Alcohol intake frequency: holidays/special occasions only Patient Tobacco Use Status: Never used Tobacco Physical Exam ED Vital Signs: Vital Signs - 24 hr 07/29/25 15:37 07/29/25 18:11 07/29/25 19:30 Temperature 97.8 F 97.6 F 97.6 F Pulse Rate 81 66 66 Respiratory Rate 16 14 14 Blood Pressure 129/67 130/79 130/79 Pulse Oximetry 100 98 98 Oxygen Delivery Method Room Air Room Air Room Air BMI result Body Mass Index 37.6 GENERAL APPEARANCE: ?AxOx4, uncomfortable appearing due to pain, no acute distress. HEENT: ?NC, AT. MMM. EOMI, clear conjunctiva, oropharynx clear. NECK: ?Supple without lymphadenopathy.? No stiffness or restricted ROM. HEART:? Normal rate and regular rhythm, normal S1/S2, no m/r/g LUNGS:? CTAB, moving air well. No crackles or wheezes are heard. ABDOMEN: ?Soft, nontender, nondistended with good bowel sounds heard. TTP over R side lateral/anterior ribs, no overlying skin changes, or ecchymosis seen BACK: No CVAT, no obvious deformity. EXTREMITIES: ?Without cyanosis, clubbing or edema. NEUROLOGICAL: ?Grossly nonfocal. Alert and oriented, moving all 4 extremities. Observed to ambulate with normal gait. Skin: ?Warm and dry without any rash. Medications Administered Discontinued Medications Generic Name Dose Route Start Last Admin Trade Name Dwain PRN Reason Stop Dose Admin Iohexol 85 ml 07/29/25 17:22 07/29/25 17:22 Iohexol 350 Mg/Ml 100 Ml Infus..Btl IV 07/29/25 17:23 85 ml ONCE ONE Administration Ketorolac Tromethamine 15 mg 07/29/25 19:18 07/29/25 19:25 Ketorolac Tromethamine 15 Mg/Ml Vial IVPUSH 07/29/25 19:19 15 mg ONCE ONE Administration Morphine Sulfate 4 mg 07/29/25 15:55 07/29/25 16:39 Morphine Sulfate 4 Mg/Ml Cartridge IVPUSH 07/29/25 15:56 4 mg ONCE ONE Administration Protocol Morphine Sulfate 4 mg 07/29/25 17:55 07/29/25 18:17 Morphine Sulfate 4 Mg/Ml Cartridge IVPUSH 07/29/25 17:56 4 mg ONCE ONE Administration Protocol Medical Decision Making Medical Decision Making MDM Narrative: 59-year-old female with medical history of pulmonary embolism not on anticoagulation presents to ED due to R sided pain that begins over R side lateral ribs and radiates underneath the right side of the breast. Patient was seen on 07/21 for same R sided pain with CT abdomen/pelvis negative and D/C with cyclobenzoprine. Patients pain had been improving, today pain is worse after serving her family Thanksgiving dinner and now the pain is radiating underneath the R breast that is sharp and stabbing in quality worse with movement and improves with deep inspiration. VS on initial observation-BP 129/67, pulse rate of 81, respiratory rate of 16, afebrile with oral temp of 97.8?, O2 saturation 100% on room air. On physical exam patient is very uncomfortable appearing in the stretcher due to pain, lungs clear to auscultation bilaterally without rhonchi or wheeze, cardiac exam reveals normal rate and rhythm without murmurs/rubs/gallops. Patient is tender to palpation over the anterior, lateral right side ribs, without overlying skin changes, no ecchymosis, no CVAT, no midline spinal tenderness. Abdomen is soft, nondistended, without rigidity, no guarding, nontender. Plan: Labs, EKG, CTA PE protocol, CT abdomen/pelvis EKG reveals normal sinus rhythm, without ST-elevation/depression, T-wave inversions in AVR, V1, V2, V3 however unchanged from previous, troponin x2 undetectable at <2.7 Labs without leukocytosis/leukopenia, no left shift, normocytic anemia with a hemoglobin of 11.7, hematocrit of 35.9, no electrolyte abnormalities CT abdomen/pelvis reveals diffuse stool burden without acute findings. CTA Chest without evidence of PE Patient with sharp stabbing pain over the R ribs, was seen in the department on 07/21 for same pain and was discharged with musculoskeletal strain with cyclobenzaprine. CT abdomen/pelvis negative for acute findings, CTA chest without evidence of pulmonary embolism. Her pain is most consistent with musculoskeletal strain. Patient's pain has improved considerably after 2 doses of 4 mg IV morphine, 15 mg IV Toradol Patient will be discharged with 3 days of Toradol, patient states she is allergic to Tylenol so can not take this medication for pain management. I instructed patient to stop taking any other NSAIDs while on Toradol and she can resume her ibuprofen after Toradol course is finished. I counseled patient that she needs to follow up with her primary care doctor as she may need physical therapy to address her musculoskeletal strain. I counseled patient that musculoskeletal strains can sometimes persist 4-6 weeks even with medication. Patient well enough to go home for self-care today. She is in agreement with the plan Differential Diagnosis Differential Diagnoses: The differential diagnosis associated with the presentation includes ACS Pulmonary embolism Electrolyte abnormality Musculoskeletal pain Admission/Observation Consideration of admission/observation: Escalation of care including admission/observation considered Lab Data MDM Lab Attestation statement: I reviewed the patient's lab results. 07/29/25 16:29 07/29/25 16:29 Labs: Lab Results 07/29/25 07/29/25 Range/Units 16:29 18:11 WBC 6.4 (4.8-10.8) X10*3/uL RBC 3.97 L (4.20-5.50) X10*6/uL Hgb 11.7 L (12.0-16.0) g/dl Hct 35.9 L (37.0-47.0) % MCV 90.4 (80.0-98.0) fL MCH 29.5 (27.0-33.0) pg MCHC 32.6 (31.0-35.0) g/dl RDW 14.3 (11.0-16.0) % Plt Count 199 (160-400) X10*3/uL MPV 11.3 (9.4-12.3) fL Immature Gran % (Auto) 0.3 (0.0-0.4) % Neut % (Auto) 51.7 (45-73) % Lymph % (Auto) 36.4 (20-40) % [place] % (Auto) 9.7 (2-11) % Eos % (Auto) 1.3 (0-4) % Baso % (Auto) 0.6 (0-2) % Lymph # (Auto) 2.3 (1.2-4.9) X10*3/uL [place] # (Auto) 0.6 (0.1-1.2) X10*3/uL Eos # (Auto) 0.1 (0.0-0.4) X10*3/uL Baso # (Auto) 0.0 (0.0-0.2) X10*3/uL Abs Immat Gran (auto) 0.02 (0.00-0.03) X10*3/uL Absolute Neuts (auto) 3.3 (2.0-8.3) x10*3/uL Absolute Nucleated RBC 0.000 (0.0-0.012) X10*3/uL Nucleated RBC % (auto) 0.0 (0.0-0.2) /100WBC Sodium 143 (135-145) mmol/L Potassium 4.0 (3.3-5.1) mmol/L Chloride 112 H (96-108) mmol/L Carbon Dioxide 24 (22-29) mmol/L Anion Gap 11 L (12-20) BUN 22 H (9-16) mg/dL Creatinine 0.70 (0.5-1.4) mg/dL Estim Creat Clear Calc 79.5 Estimated GFR > 60 Random Glucose 102 (60-115) mg/dL Calcium 8.7 (8.4-10.2) mg/dL Magnesium 2.1 (1.6-2.6) mg/dL Total Bilirubin 0.3 (0.0-1.0) mg/dL AST 17 (5-31) U/L ALT 11 (0-31) U/L Alkaline Phosphatase 117 (39-117) U/L Troponin I High Sens < 2.7 < 2.7 (<3.5-17.0) ng/L Total Protein 7.0 (6.5-8.0) g/dL Albumin 4.0 (3.5-5.0) g/dL Influenza Type A (PCR) NEGATIVE (Negative) Influenza Type B (PCR) NEGATIVE (Negative) RSV RNA Qual (PCR) NEGATIVE (Negative) SARS-CoV-2 RNA (RT-PCR) NEGATIVE (Negative) Independent Interpretation I performed an independent interpretation of an: EKG and CT Scan Interpretation: I personally interpreted the EKG which reveals normal sinus rhythm without ST- elevation/depression, T-wave inversions in AVR, V1, V2, V3 however unchanged when compared with prior Vent. Rate : 71 BPM Atrial Rate : 71 BPM P-R Int : 182 ms QRS Dur : 86 ms QT Int : 412 ms P-R-T Axes : 45 13 18 degrees QTcB Int : 447 ms Normal sinus rhythm Normal ECG When compared with ECG of 05-Sep-2024 18:13, No significant change was found Radiology Impression Discussion of test interpretation with radiology: I have reviewed the radiologist's reading. Radiologist Impression: CTA PE protocol CT abdomen/pelvis Independent Historian Clinical information obtained from an independent historian. History obtained from or confirmed by: Other (Daughter at bedside corroborating history) External Record Review External record reviewed: Inpatient record, Office record and Outpatient record Chronic Conditions Patient?s care impacted by: Other (Prior history of pulmonary embolism, not on anticoagulation) Discharge Plan Discharge Clinical Impression: Musculoskeletal strain Patient Disposition: Home, Self-Care Additional Instructions: You were evaluated in the emergency department for right-sided pain that was radiating under the right breast. The CT of your chest was negative for pulmonary embolism, the CT of your abdomen was negative for any emergent findings. Your EKG was normal, troponins which is a protein that your heart gives off when under stress or damage were both undetectable today. Your symptoms are most consistent with a muscle strain. You are being prescribed a 3 day course of Toradol which is a strong NSAID. While on this medication do not take any other NSAIDs such as ibuprofen, Aleve, Motrin or Naprosyn. Once you finish your course of Toradol you can then began taking ibuprofen for pain management. Additionally, you can apply heat over the affected area and perform gentle stretching to manage pain. Please follow up with your primary care doctor as you may need physical therapy to manage this pain. It is not uncommon for a musculoskeletal strain to last 4- 6 weeks even with oral medications. Please return to the emergency department if you experience worsening pain, chest pain, shortness of breath, difficulty breathing, nausea, vomiting, headaches, fevers over 100.4? or any new/worsening/concerning symptoms. Prescriptions: New ketorolac 10 mg tablet 10 mg PO Q8H PRN (Reason: pain) 3 Days Qty: 9 0RF No Action levofloxacin 750 mg tablet 750 mg PO DAILY 7 Days Qty: 7 0RF albuterol sulfate [ProAir HFA] 90 mcg/actuation HFA aerosol inhaler 2 puff inhalation Q4-6H PRN (Reason: shortness of breath or wheezing) Qty: 8.5 0RF ketorolac 10 mg tablet 10 mg PO TID PRN (Reason: pain) 5 Days Qty: 15 0RF prednisone 20 mg tablet 40 mg PO DAILY 5 Days Qty: 10 0RF naproxen 500 mg tablet 500 mg PO BID PRN (Reason: pain) Qty: 14 0RF levofloxacin 500 mg tablet 500 mg PO DAILY 10 Days Qty: 10 0RF metronidazole 500 mg tablet 500 mg PO TID Qty: 30 0RF pantoprazole [Protonix] 40 mg tablet,delayed release (DR/EC) 40 mg PO DAILY Qty: 14 0RF cyclobenzaprine 5 mg tablet 5 mg PO BID PRN (Reason: muscle spasm) Qty: 14 0RF cyclobenzaprine 10 mg tablet 10 mg PO TID PRN (Reason: muscle spasm) Qty: 14 0RF ibuprofen 600 mg tablet 600 mg PO Q8H PRN (Reason: fever or pain) Qty: 30 0RF Interventions: ED Discharge Assessment Last Done: 07/29/25 19:30 Discharge Date/Time: 07/29/25 19:34 Print Language: [place]
[2025-07-29 15:37] VITALS: BP 129/67; BP 142/88; PULSE 81; PULSE 90; RESP 16; TEMP 36.6; O2SAT 100; O2SAT 93; BMI 37.6
--- OUTSIDE RECORDS SUMMARY | 2025-07-29 15:52 | XMS_ITS | Encounter Summary ---
Author Organization [facility] Address [address] [place] [address] Care Team Providers Care Design Eng Name Role Phone Anjel Crandall MD Primary Care Provider [phone] Reason for Visit * Reason Onset Date Comments Hospital Follow-up 07/27/2025 Encounter Details Date Type Department Care Team ([facility] Contact Info) Description 07/27/2025 Telephone Adult Medicine [address] [phone] Anjel Crandall MD [address] [place] [phone] Social History Tobacco Use Types Packs/Day Years [...] on file documented as of this encounter Progress Notes * Kaz Kraft RN - 07/27/2025 2:14 PM EST Called pt hosp fu for 08/09 at 130pm with pcp * Patricia Barrios - 07/27/2025 1:41 PM EST Hospital/ER follow up appointment needed Hospital patient was treated at: [facility] Was this only an ER visit or was the patient admitted to the hospital? Admitted to the hospital/kept overnight Date of visit if ER visit only: 07/21/2025 If patient was admitted what was the date of discharge? 07/22/2025 Reason/diagnosis for visit or stay: pain on right side of back near lung, blood in urine. When was the patient told to follow up? [facility] Was visit or stay related to an injury? If yes, what was the date of injury (DOI)? No If yes, was the injury due to: Not 3rd democrat related documented in this encounter Plan of Treatment Upcoming Encounters Date Type Department Care Team (Late st Contact Info) Description 08/09/2025 1:30 PM EST Office Visit Adult Medicine [address] [phone] Anjel Crandall MD [address] [place] [address] 11/01/2025 1:20 PM EST Appointment Radiology Department - [address] [phone] 11/03/2025 9:00 AM EST Office Visit [address] [phone] Anjel Crandall MD [address] [place] [address] documented as of this encounter Visit Diagnoses Not on filedocumented in this encounter Care Teams Design Eng Relationship Specialty Start Date End Date Anjel Crandall MD [address] [place] [address] PCP - General Internal Medicine 08/14/24 documented as of this encounter
--- OUTSIDE RECORDS SUMMARY | 2025-07-29 15:52 | XMS_ITS | Clinical Summary ---
Author Organization 175 [facility] Address [address] [place] [address] Phone Care Team Providers Care Band Saw Marker Name Role Phone Anjel Crandall MD Primary Care Provider [phone] Allergies Active Allergy Reactions Criticality Noted Date [...] Microscopic hematuria 06/16/2024 Overview (06/16/2024): uro at [place] Depression with anxiety 06/16/2024 History of pulmonary [...] 10/17/2020 Overview (06/16/2024): [facility] Reccomendations as of 08/21/2020 Not visually [...] Encounters Date Type Department Care Team Description 07/27/2025 Telephone Adult Medicine [address] [phone] Anjel Crandall MD 07/21/2025 Telephone Adult Medicine [address] [phone] Emmy Weinberg [place] 06/30/2025 2:30 PM EDT Office Visit [address] [phone] Anju Vernon PA Pain of right upper extremity (Primary Dx) 06/30/[address] [phone] Anjel Crandall MD 06/22/2025 Telephone Vascular Surgery [facility] [address] [facility] [address] [place] [address] Ky Alford MD 06/01/2025 Results Follow-Up [address] [phone] Gloria Camejo MA 05/31/2025 2:48 PM EDT - 05/31/2025 11:59 PM EDT Hospital Encounter Radiology Department [address] [phone] Pain of right breast Discharge Disposition: Home or Self Care 05/31/2025 2:48 PM EDT - 05/31/2025 11:59 PM EDT Hospital Encounter Radiology Department [address] [phone] Pain of right breast Discharge Disposition: Home or Self Care 05/26/2025 11:30 AM EDT Office Visit [address] [phone] Geovanna Bautista NP Acute pain of right lower extremity (Primary Dx); Venous insufficiency of right lower extremity; Varicose veins of both lower extremities with pain 05/25/2025 Telephone Adult Medicine [address] [phone] Anjel Crandall MD 05/05/2025 3:30 PM EDT Office Visit Adult Medicine [address] [phone] Anju Vernon PA Pain of right breast (Primary Dx) from Last 3 Months Immunizations Immunization Administration [...] CERVICAL BIOPSY W/ LOOP ELECTRODE EXCISION PROCEDURE: SD CONIZATION CERVIX W/WO D&C RPR ELTRD EXC; COMMENT: Patient see Dr Burton at [place], [place] 2 with + exocerv margin (focal) OTHER SURGICAL HISTORY 10/27/14 PROCEDURE: HISTORICAL TOTAL HYSTERECTOMY W/O BSO; COMMENT: fibroids COLONOSCOPY 01/13/2016 PROCEDURE: HISTORICAL COLONOSCOPY; COMMENT: tics; repeat in 10 yrs COLONOSCOPY 03/30/2019 PROCEDURE: HISTORICAL COLONOSCOPY; COMMENT: diverticulosis; otherwise negative. OTHER SURGICAL HISTORY 02/23/2020 Left PROCEDURE: SD LAPS COLECTOMY PRTL W/END CLST & CLSR DSTL SGM HERNIA REPAIR 10/2020 PROCEDURE: REPAIR UMBILICAL HERNIA HERNIA REPAIR 10/25/2020 PROCEDURE: SD REPAIR FIRST ABDOMINAL WALL HERNIA; COMMENT: laparoscopic supraumbilical midline incisional hernia repair with mesh - Dr. Avelino De Leon BREAST BIOPSY 2013 Left PROCEDURE: BX BREAST; PERC NEEDLE CORE W/IMAG GUID; COMMENT: lt. breast bx.benign Medical History Medical History Date Comments Microscopic hematuria DX:Microsc opic hematuria; COMMENT: uro at [place] Hepatitis B carrier (CMS/HCC V24, CMS/HCC V28) [...] 1:30 PM EST Office Visit Adult Medicine [address] [phone] Anjel Cradnall MD [address] [place] [address] 11/01/2025 1:20 PM EST Appointment Radiology Department - [address] [phone] 11/03/2025 9:00 AM EST Office Visit Adult Medicine [address] [phone] Anjel Crandall MD [address] [place] [address] Health Maintenance Due Date Last Done Comments [...] of right breast is recommended. MAMMO LOCATION: [facility], [address] [place] [address], [address], . -------- FINAL REPORT -------- Dictated By: Charis Harris Dictated Date: 05/31/2025 16:12 ET Assigned Physician: Charis Harris Reviewed and Electronically Signed By: Charis Harris Signed Date: 05/31/2025 16:18 ET Workstation ID: [id number] Transcribed By: Self Edit Transcribed Date: 05/31/2025 [...] of right breast is recommended. MAMMO LOCATION: [facility], [address] [place] [address], [address], . -------- FINAL REPORT -------- Dictated By: Charis Harris Dictated Date: 05/31/2025 16:12 ET Assigned Physician: Charis Harris Reviewed and Electronically Signed By: Charis Harris Signed Date: 05/31/2025 16:18 ET Workstation ID: [id number] Transcribed By: Self Edit Transcribed Date: 05/31/2025 [...] of right breast is recommended. MAMMO LOCATION: [facility], [address] [place] [address], [address], . -------- FINAL REPORT -------- Dictated By: Charis Harris Dictated Date: 05/31/2025 16:12 ET Assigned Physician: Charis Harris Reviewed and Electronically Signed By: Charis Harris Signed Date: 05/31/2025 16:18 ET Workstation ID: [id number] Transcribed By: Self Edit Transcribed Date: 05/31/2025 [...] of right breast is recommended. MAMMO LOCATION: [facility], [address] [place] [address], [address], . -------- FINAL REPORT -------- Dictated By: Charis Harris Dictated Date: 05/31/2025 16:12 ET Assigned Physician: Charis Harris Reviewed and Electronically Signed By: Charis Harris Signed Date: 05/31/2025 16:18 ET Workstation ID: [id number] Transcribed By: Self Edit Transcribed Date: 05/31/2025 16:12 ET Anju RODRIGEZ IMG BI PROCEDURES Final Result * Pap smear (10/18/2022) 10/18/2022 Narrative HISTORICAL TESTING LAB RESULTING AGENCY - 10/29/2022 11:41 AM EST [id number] THINPREP PAP, IMAGED: ATYPICAL SQUAMOUS CELLS OF [...] Most Recently Relevant to Health Maintenance Insurance [facility] Advance Directives Documents on File Type Date Recorded Patient Painter Drum Expl anation Power of Hearing Screener 09/07/2024 10:37 AM Care Teams Band Saw Marker Relationship Specialty Start Date End Date Anjel Crandall MD [address] [place] [phone] PCP - General Internal Medicine 08/14/24
--- OUTSIDE RECORDS SUMMARY | 2025-07-29 15:52 | XMS_ITS | Encounter Summary ---
Author Organization [facility] Address [address] [place] [address] Care Team Providers Care Teachers' Aide Name Role Phone Anjel Crandall MD Primary Care Provider Encounter Details Date Type Department Care Team (Late Contact Info) Description 06/01/2025 Results Follow-Up Adult Medicine [address] [phone] Gloria Camejo [place] Social History Tobacco Use [...] Upcoming Encounters Date Type Department Care Team ([facility] Contact Info) Description 08/09/2025 1:30 PM EST Office Visit Adult Medicine [address] [phone] Anjel Crandall MD [address] [place] [address] 11/01/2025 1:20 PM EST Appointment Radiology Department - [address] [phone] 11/03/2025 9:00 AM EST Office Visit Adult Medicine [address], [place] [phone] Anjel Crandall MD [address], [place] documented as of this encounter Visit Diagnoses Not on filedocumented in this encounter Care Teams Teachers' Aide Relationship Specialty Start Date End Date Anjel Crandall MD [address] [place] [address] PCP - General Internal Medicine 08/14/24 documented as of this encounter
--- NOTE | 2025-07-29 16:05 | ECG_ITS ---
Test Reason : R SIDED CHEST PAIN Blood Pressure : */* mmHG Vent. Rate : 71 BPM Atrial Rate : 71 BPM P-R Int : 182 ms QRS Dur : 86 ms QT Int : 412 ms P-R-T Axes : 45 13 18 degrees QTcB Int : 447 ms Normal sinus rhythm Normal ECG When compared with ECG of 05-Sep-2024 18:13, No significant change was found Referred By: Ayanna Vargas Electronically Signed By: Gideon Melissa
[2025-07-29 16:33] LABS: MANUAL DIFF FLAG NO
[2025-07-29 16:35] LABS: Hematocrit 35.9 % (37.0-47.0); Hemoglobin 11.7 g/dl (12.0-16.0); Imm Gran Abs Auto 0.02 X10*3/uL (0.00-0.03); Imm Gran Pct Auto 0.3 % (0.0-0.4); Lymphocytes Absolute Auto 2.3 X10*3/uL (1.2-4.9); Mean Corpuscular HGB Conc 32.6 g/dl (31.0-35.0); Mean Corpuscular Hemoglobin 29.5 pg (27.0-33.0); Mean Corpuscular Volume 90.4 fL (80.0-98.0); NRBC Abs Auto 0.000 X10*3/uL (0.0-0.012); NRBC Pct Auto 0.0 /100WBC (0.0-0.2); Platelet Count 199 X10*3/uL (160-400); Red Blood Count 3.97 X10*6/uL (4.20-5.50); White Blood Count 6.4 X10*3/uL (4.8-10.8)
--- NOTE | 2025-07-29 16:42 | PC.NURSE ---
IV inserted, labs drawn, ekg monitor tech applied- nsr on monitor, pt medicated for pain, call schofield within reach, plan of care ongoing
[2025-07-29 16:50] LABS: Alanine Aminotransferase 11 U/L (0-31); Albumin Level 4.0 g/dL (3.5-5.0); Alkaline Phosphatase 117 U/L (39-117); Anion Gap 11 (12-20); Aspartate Amino Transferase 17 U/L (5-31); Blood Urea Nitrogen 22 mg/dL (9-16); Calcium 8.7 mg/dL (8.4-10.2); Carbon Dioxide 24 mmol/L (22-29); Chloride 112 mmol/L (96-108); Creatinine Clr Calc Pharmacy 79.5; Estimated Glomerular Filt Rate > 60; Magnesium 2.1 mg/dL (1.6-2.6); Potassium 4.0 mmol/L (3.3-5.1); Sodium 143 mmol/L (135-145); Total Protein 7.0 g/dL (6.5-8.0)
[2025-07-29 16:58] LABS: Troponin-I High Sensitivity < 2.7 ng/L (<3.5-17.0)
[2025-07-29] MEDS: iohexoL 350 MG/ML 100 ML INFUS..BTL 85 ML IV (17:22)
[2025-07-29 18:11] VITALS: BP 130/79; PULSE 66; RESP 14; TEMP 36.4; O2SAT 98
[2025-07-29 18:54] LABS: Troponin-I High Sensitivity < 2.7 ng/L (<3.5-17.0)
[2025-07-29 19:05] LABS: Resp Syncy Virus RNA Qual PCR NEGATIVE (Negative); SARS COV2 PCR INHOUSE NEGATIVE (Negative)
[2025-07-29 19:30] VITALS: BP 130/79; PULSE 66; RESP 14; TEMP 36.4; O2SAT 98
== END 2025-07-29 19:34 | disposition home or self-care (01) ==
PROVIDERS: Emergency Provider Emergency Medicine; PCP Internal Medicine
DX: S29.011A Strain of muscle and tendon of front wall of thorax, initial encounter (principal); Z86.711 Personal history of pulmonary embolism; Z79.01 Long term (current) use of anticoagulants; X58.XXXA Exposure to other specified factors, initial encounter; Y93.9 Activity, unspecified; Y92.9 Unspecified place or not applicable; Y99.9 Unspecified external cause status; Z88.6 Allergy status to analgesic agent; Z03.818 Encounter for observation for suspected exposure to other biological agents ruled out
CPT/HCPCS: 36415; 71275; 74177; 80053; 83735; 84484; 85025; 87637; 93005; 96374; 96375; 96376; 99285; J1885; J2270; Q9967

== ENCOUNTER → 2025-07-29 15:50 | Outpatient (BNV) | payer OTHER, SELFPAY | PROVIDERS: Emergency Provider Emergency Medicine; PCP Internal Medicine; Visit Provider Radiology Diagnostic Radiology | DX: K57.30 Diverticulosis of large intestine without perforation or abscess without bleeding (principal); K59.00 Constipation, unspecified; R07.9 Chest pain, unspecified; K44.9 Diaphragmatic hernia without obstruction or gangrene | CPT/HCPCS: 71275; 74177 ==

== ENCOUNTER → 2025-07-29 16:05 | Outpatient (BNV) | payer OTHER, SELFPAY | PROVIDERS: Emergency Provider Emergency Medicine; PCP Internal Medicine; Visit Provider Internal Medicine Cardiovascular Disease | DX: R07.89 Other chest pain (principal) | CPT/HCPCS: 93010 ==

== ENCOUNTER 2025-08-05 14:30 | Emergency (ER) | payer OTHER, SELFPAY ==
[2025-08-05 14:47] VITALS: BP 146/78; PULSE 81; RESP 18; TEMP 36.3; O2SAT 98; BMI 37.4
--- NOTE | 2025-08-05 15:44 | ED_ITS ---
HPI - General Adult General Chief complaint: Back Pain/Injury Stated complaint: R side pain Time Seen by Provider: 08/05/25 15:31 Source: patient and file conversion operator (bahamian) Mode of arrival: ambulatory Limitations: language barrier (bahamian) History of Present Illness ED Provider: JAVID WEBSTER PA-C HPI narrative: 59 year old female presents to the ED today for right sided back pain x2 weeks. Reports slip and fall 2 weeks ago. She was evaluated in our ED at that time with negative work up x2, discharged with flexeril and naproxen which improved her pain. 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 States this exacerbated her back pain. Her work is asking for a new work note. She states she has a follow up appointment with her PCP on Saturday. Denies numbness/tingling/weakness of the LEs, saddle anesthesia, bowel or bladder incontinence or retention, chest pain, SOB, palpitations, urinary sx, fever/chills. Denies hx spinal surgery or IVDU. Related Data Previous Rx's ?Medication ?Instructions ?Recorded albuterol sulfate 90 mcg/actuation 2 puff inhalation Q 4-6H PRN 01/11/22 aerosol inhaler (ProAir HFA) shortness of breath or wh eezing #8.5 grams levofloxacin 750 mg tablet 750 mg PO DAILY 7 days #7 t abs 01/11/22 ketorolac 10 mg tablet 10 mg PO TID PRN pain 5 days #15 11/13/22 tabs levofloxacin 500 mg tablet 500 mg PO DAILY 10 days #10 tabs 03/10/24 metronidazole 500 mg tablet 500 mg PO TID #30 tabs 05/26 pantoprazole 40 mg tablet,delayed 40 mg PO DAILY #14 t abs 09/05/24 release (Protonix) cyclobenzaprine 5 mg tablet 5 mg PO BID PRN muscle spa sm #14 05/21/25 tabs naproxen 500 mg tablet 500 mg PO BID PRN pain #14 t abs 06/29/25 prednisone 20 mg tablet 40 mg (2 x 20 mg) PO DAILY 5 days 06/29/25 #10 tabs cyclobenzaprine 10 mg tablet 10 mg PO TID PRN muscle s pasm #14 07/21/25 tabs ibuprofen 600 mg tablet 600 mg PO Q8H PRN fever or p ain 07/21/25 #30 tabs ketorolac 10 mg tablet 10 mg PO Q8H PRN pain 3 days #9 07/29/25 tabs methocarbamol 1,000 mg tablet 1,000 mg PO Q8H 3 days # 9 tabs 08/05/25 Allergies Allergy/AdvReac Type Severity Reaction Status Date / Time acetaminophen Allergy Severe RASH, Verified 08/05/25 14:50 ITCHY EYES, ? ANAPHYLAXIS Review of Systems Review of Systems: Yes all other systems are reviewed and are negative [facility] Past Medical History Attestation statement: The following information was validated with the patient. Source: old records reviewed and nursing notes reviewed Medical History Pulmonary embolus Breast pain, right Social History Social History Alcohol intake: current Alcohol intake frequency: holidays/special occasions only Patient Tobacco Use Status: Never used Tobacco Advance Directives: No Advance Directives Information Provided: No Physical Exam ED Vital Signs: Vital Signs - 24 hr 08/05/25 14:47 Temperature 97.3 F Pulse Rate 81 Respiratory Rate 18 Blood Pressure 146/78 H Pulse Oximetry 98 Oxygen Delivery Method Room Air BMI result Body Mass Index 37.4 hypertensive, vitals are otherwise wnl General: Well appearing, in no acute distress. Skin: Warm, dry, intact. No rashes or lesions. Head: Normocephalic, atraumatic. EENT: Hearing is intact b/l. Conjunctiva clear. PERRLA. EOM intact. Moist mucous membranes.? Cardiac: Chest wall symmetric. RRR Lungs: Normal respiratory effort without accessory muscle use. CTA bilaterally Abdomen: Soft, non-tender, non-distended. No rebound tenderness or guarding. Positive BS x4. Back: Midline spinous tenderness or step-off deformity. There is reproducible tenderness to palpation of right lumbar paraspinal muscles. no overlying skin changes. Ext: Upper and lower extremities atraumatic, without tenderness, deformity, swelling or erythema. Full ROM throughout Neuro: AOx3. Normal speech. Strength 5/5 intact throughout. No saddle anesthesia. Sensation intact to light touch. NV intact distally. Ambulating with steady gait. Course Course Course Narrative: Patient's exam/ presentation is consitent with msk back pain, secondary to fall. It has improved w/ previous prescribed medication, pain has been aggravated with work. NO red flag symptoms. She has had a CT a/p along iwth CTA chest in the past week. I do not feel as though further imaging is warranted at this time. Will treat w/ lido patch and robaxin and dc patient home w/ pain meds. She has f/u with her PCP in 5 days. Patient has remained stable throughout ED visit today. Discussed worrisome signs and symptoms and when to return to the ED. All questions answered at this time. Patient is agreeable with disposition and stable for discharge. Medications Administered Discontinued Medications Generic Name Dose Route Start Last Admin Trade Name Freq PRN Reason Stop Dose Admin Lidocaine 1 patch 08/05/25 15:46 08/05/25 16:11 Lidocaine 4 % Patch Adh..Patch TRANSDERMA 08/05/25 15:47 1 patch ONCE ONE Administration Protocol Methocarbamol 1,000 mg 08/05/25 15:46 08/05/25 16:11 Methocarbamol 500 Mg Tablet PO 08/05/25 15:47 1,000 mg ONCE ONE Administration Medical Decision Making Medical Decision Making MDM Narrative: 59 year old female presents to the ED today for right sided back pain x2 weeks. She is hypertensive, vitals otherwise WNL. Her exam is quite benign. Differential diagnosis includes msk sprain/stain, muscle spasm. Unlikely fracture, subluxation, disc herniation, cauda equina, Guillain-Richland, epidural abscess, cord compression. Plan for pain control and dispo home. Differential Diagnosis Differential Diagnoses: The differential diagnosis associated with the presentation includes as above. Admission/Observation not indicated. Independent Historian Clinical information obtained from an independent historian. History obtained from or confirmed by: Spouse External Record Review External record reviewed: Inpatient record Prescription Management I considered prescription management with: Other (robaxin) Social Determinants Patient?s care significantly limited by Social Determinants of Health including: Other Social Determinant of Health Critical Care Time Critical Care Time Critical Care Time: No Discharge Plan Discharge Clinical Impression: Thoracic back pain Patient Disposition: Home, Self-Care Instructions: Thoracic Pain (ED) Additional Instructions: You were evaluated in the ED today for continued right back pain. Your physical exam is consistent with muscular pain. I am sending a different muscle relaxer, methocarbamol, to the pharmacy. DO NOT TAKE THIS WITH FLEXERIL. Continue using lidocaine patches. You may also apply heat to the area when the patches are NOT on. Keep your follow up appointment with your PCP on Saturday. Prescriptions: New methocarbamol 1,000 mg tablet 1,000 mg PO Q8H 3 Days Qty: 9 0RF No Action levofloxacin 750 mg tablet 750 mg PO DAILY 7 Days Qty: 7 0RF albuterol sulfate [ProAir HFA] 90 mcg/actuation HFA aerosol inhaler 2 puff inhalation Q4-6H PRN (Reason: shortness of breath or wheezing) Qty: 8.5 0RF ketorolac 10 mg tablet 10 mg PO TID PRN (Reason: pain) 5 Days Qty: 15 0RF prednisone 20 mg tablet 40 mg PO DAILY 5 Days Qty: 10 0RF naproxen 500 mg tablet 500 mg PO BID PRN (Reason: pain) Qty: 14 0RF levofloxacin 500 mg tablet 500 mg PO DAILY 10 Days Qty: 10 0RF metronidazole 500 mg tablet 500 mg PO TID Qty: 30 0RF pantoprazole [Protonix] 40 mg tablet,delayed release (DR/EC) 40 mg PO DAILY Qty: 14 0RF cyclobenzaprine 5 mg tablet 5 mg PO BID PRN (Reason: muscle spasm) Qty: 14 0RF cyclobenzaprine 10 mg tablet 10 mg PO TID PRN (Reason: muscle spasm) Qty: 14 0RF ibuprofen 600 mg tablet 600 mg PO Q8H PRN (Reason: fever or pain) Qty: 30 0RF ketorolac 10 mg tablet 10 mg PO Q8H PRN (Reason: pain) 3 Days Qty: 9 0RF Referrals: Anjel Crandall III, MD [Primary Care Provider, Medical] Stand Alone Forms: Work/School Release Interventions: ED Discharge Assessment Last Done: 08/05/25 16:17 Discharge Date/Time: 08/05/25 16:19 Print Language: Cape Verdean
[2025-08-05 15:53] VITALS: BP 151/67; PULSE 69; RESP 16; TEMP 36.4; O2SAT 99
[2025-08-05] MEDS: Lidocaine 4 % Patch ADH..PATCH 1 PATCH TRANSDERMA (16:11)
[2025-08-05 16:17] VITALS: BP 151/67; PULSE 69; RESP 16; TEMP 36.4; O2SAT 99
--- OUTSIDE RECORDS SUMMARY | 2025-08-05 21:34 | XMS_ITS | Clinical Summary ---
Author Organization 175 [facility] Address [address] [place] [address] Phone Care Team Providers Care Electrification Adviser Name Role Phone Anjel Crandall MD Primary Care Provider [phone] Allergies Active Allergy Reactions Criticality Noted Date [...] Microscopic hematuria 06/16/2024 Overview (06/16/2024): uro at [place] Depression with anxiety 06/16/2024 History of pulmonary [...] 10/17/2020 Overview (06/16/2024[facility] Reccomendations as of 08/21/2020 Not visually signficant, [...] Encounters Date Type Department Care Team Description 08/02/2025 Telephone Adult Medicine [address] [phone] Anjel Crandall MD 07/27/2025 Telephone Adult [address] [phone] Anjel Crandall MD 07/21/2025 Telephone Adult Medicine [address] [phone] Emmy Weinberg [place] 06/30/2025 2:30 PM EDT Office Visit [address] [phone] Anju Vernon PA Pain of right upper extremity (Primary Dx) 06/30/[address] [phone] Anjel Crandall MD 06/22/2025 Telephone Vascular Surgery - [place] [address] [facility] [address] [place] [address] Ky Alford MD 06/01/2025 Results Follow-Up [address] [phone] Gloria Camejo [place] 05/31/2025 2:48 PM EDT - 05/31/2025 11:59 PM EDT Hospital Encounter Radiology Department - [address] [phone] Pain of right breast Discharge Disposition: Home or Self Care 05/31/2025 2:48 PM EDT - 05/31/2025 11:59 PM EDT Hospital Encounter Radiology Department - [address] [phone] Pain of right breast Discharge Disposition: Home or Self Care 05/26/2025 11:30 AM EDT Office Visit [address] [phone] Geovanna Bautista NP Acute pain of right lower extremity (Primary Dx); Venous insufficiency of right lower extremity; Varicose veins of both lower extremities with pain 05/25/2025 Telephone Adult Medicine [address] [phone] Anjel Crandall MD from Last 3 Months Immunizations Immunization Administration [...] CERVICAL BIOPSY W/ LOOP ELECTRODE EXCISION PROCEDURE: [place] CONIZATION CERVIX W/WO D&C RPR ELTRD EXC; COMMENT: Patient see Dr Burton at [place], [place] 2 with + exocerv margin (focal) OTHER SURGICAL HISTORY 10/27/14 PROCEDURE: HISTORICAL TOTAL HYSTERECTOMY W/O BSO; COMMENT: fibroids COLONOSCOPY 01/13/2016 PROCEDURE: HISTORICAL COLONOSCOPY; COMMENT: tics; repeat in 10 yrs COLONOSCOPY 03/30/2019 PROCEDURE: HISTORICAL COLONOSCOPY; COMMENT: diverticulosis; otherwise negative. OTHER SURGICAL HISTORY 02/23/2020 Left PROCEDURE: [place] LAPS COLECTOMY PRTL W/END CLST & CLSR DSTL SGM HERNIA REPAIR 10/2020 PROCEDURE: REPAIR UMBILICAL HERNIA HERNIA REPAIR 10/25/2020 PROCEDURE: [place] REPAIR FIRST ABDOMINAL WALL HERNIA; COMMENT: laparoscopic supraumbilical midline incisional hernia repair with mesh - Dr. Avelino De Leon BREAST BIOPSY 2013 Left PROCEDURE: BX BREAST; PERC NEEDLE CORE W/IMAG GUID; COMMENT: lt. breast bx.benign Medical History Medical History Date Comments Microscopic hematuria DX:Microsc opic hematuria; COMMENT: uro at [place] Hepatitis B carrier (CMS/HCC V24, CMS/HCC V28) [...] 1:30 PM EST Office Visit Adult Medicine [address] [phone] Anjel Crandall MD [address] [place] [address] 11/01/2025 1:20 PM EST Appointment Radiology Department - [address] [phone] 11/03/2025 9:00 AM EST Office Visit Adult Medicine [address] [phone] Anjel Crandall MD [address] [place] [address] Health Maintenance Due Date Last Done Comments [...] of right breast is recommended. MAMMO LOCATION: [facility], [address] [place] [address], [address], . -------- FINAL REPORT -------- Dictated By: Charis Harris Dictated Date: 05/31/2025 16:12 ET Assigned Physician: Charis Harris Reviewed and Electronically Signed By: Charis Harris Signed Date: 05/31/2025 16:18 ET Workstation ID: [id number] Transcribed By: Self Edit Transcribed Date: 05/31/2025 [...] of right breast is recommended. MAMMO LOCATION: [facility], [address] [place] [address], [address], . -------- FINAL REPORT -------- Dictated By: Charis Harris Dictated Date: 05/31/2025 16:12 ET Assigned Physician: Charis Harris Reviewed and Electronically Signed By: Charis Harris Signed Date: 05/31/2025 16:18 ET Workstation ID: [id number] Transcribed By: Self Edit Transcribed Date: 05/31/2025 [...] of right breast is recommended. MAMMO LOCATION: [facility], [address] [place] [address], [address], . -------- FINAL REPORT -------- Dictated By: Charis Harris Dictated Date: 05/31/2025 16:12 ET Assigned Physician: Charis Harris Reviewed and Electronically Signed By: Charis Harris Signed Date: 05/31/2025 16:18 ET Workstation ID: [id number] Transcribed By: Self Edit Transcribed Date: 05/31/2025 [...] of right breast is recommended. MAMMO LOCATION: [facility], [address] [place] [address], [address], . -------- FINAL REPORT -------- Dictated By: Charis Harris Dictated Date: 05/31/2025 16:12 ET Assigned Physician: Charis Harris Reviewed and Electronically Signed By: Charis Harris Signed Date: 05/31/2025 16:18 ET Workstation ID: [id number] Transcribed By: Self Edit Transcribed Date: 05/31/2025 16:12 ET Anju RODRIGEZ IMG BI PROCEDURES Final Result * Pap smear (10/18/2022) 10/18/2022 Narrative HISTORICAL TESTING LAB RESULTING AGENCY - 10/29/2022 11:41 AM EST [id number] THINPREP PAP, IMAGED: ATYPICAL SQUAMOUS CELLS OF UNDETERMINED SIGNIFICANCE (ASCUS) . TAVON BERKOWITZ , CT(ASCP) (CASE SCREENED 10 25 2022) KIERAN REEVES M.D. , PATHOLOGIST (CASE ELECTRONICALLY SIGNED 10 26 2022) ADEQUACY: SATISFACTORY . SOURCE: THINPREP PAP, VAGINAL, IMAGED CLINICAL INFORMATION: HYSTERECTOMY, LEEP FOR WILTNO 2 WITH FOCALLY + ECTCERVICAQL MARGIN (KIRBY BURTON MD, COLPO AND EECC NEG 09/18/11, PAP 01/30/12 NORMAL PAP 07/2012 WILTON 1 BUT NEG HPV. COLPOSCOPY REPEAT 09/24/11 - BX AND ECC NORMAL. REPEAT PAP AND HPV NEG 07/2013, 2014 HYSTERECTOMY, PAP SMEAR 06/2018 [facility] HR HPV +, PAP SMEAR 07/2019 NEG HRHPV NEG, LMP 05/23/2014, [Z12.4] us Vivek Fonteont DO LAB CYTOLOGY ORDERABLES Final Result HISTORICAL TESTING LAB RESULTING AGENCY from Last 3 Months or Most Recently Relevant to Health Maintenance Insurance [facility] Advance Directives Documents on File Type Date Recorded Patient Welfare Service Aide Expl anation Power of Clean Room Technician 09/07/2024 10:37 AM Care Teams Electrification Adviser Relationship Specialty Start Date End Date Anjel Crandall MD [address] [place] [phone] PCP - General Internal Medicine 08/14/24
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
--- OUTSIDE RECORDS SUMMARY | 2025-08-05 21:34 | XMS_ITS | Encounter Summary ---
Author Organization [facility] Address [address] [place] [address] Care Team Providers Care Strike Planning Applications Name Role Phone Anjel Crandall MD Primary Care Provider [phone] Encounter Details Date Type Department Care Team (Late Contact Info) Description 06/01/2025 Results Follow-Up Adult Medicine [address] [phone] Gloria Camejo [place] Social History Tobacco Use [...] Upcoming Encounters Date Type Department Care Team ([facility] Contact Info) Description 08/09/2025 1:30 PM EST Office Visit Adult Medicine [address] [phone] Anjel Crandall MD [address] [place] [address] 11/01/2025 1:20 PM EST Appointment Radiology Department - [address] [phone] 11/03/2025 9:00 AM EST Office Visit Adult Medicine [address] [phone] Anjel Crandall MD [address] [place], [place] documented as of this encounter Visit Diagnoses Not on filedocumented in this encounter Care Teams Strike Planning Applications Relationship Specialty Start Date End Date Anjel Crandall MD [address] [place] [address] PCP - General Internal Medicine 08/14/24 documented as of this encounter
== END 2025-08-05 16:19 | disposition home or self-care (01) ==
PROVIDERS: Emergency Provider Emergency Medicine; PCP Internal Medicine
DX: M54.6 Pain in thoracic spine (principal)
CPT/HCPCS: 99283